=== PATIENT | male | born 1955 | race Caucasian/White ===

== ENCOUNTER 2018-06-30 07:48 | Day surgery (SDC) | payer BC, OTHER ==
[~2018-06-30 07:48] MED LIST: ALPRAZolam 0.25 MG TAB PO PRN; ALPRAZolam 0.5 MG TAB PO PRN; ASPIRIN 325 MG TAB PO STA; ATORVASTATIN 80 MG TAB PO STA; NITROGLYCERIN SL TABS 0.4 MG TAB SUBLINGUAL PRN; SODIUM CHLORIDE 0.9% 1,000 ML in EMPTY BAG 1 BAG IV ONE
[2018-06-30] MEDS ORDERED: fentaNYL (PF) 50 MCG/ML 2 ML AMP IVP ONE (09:24)
[2018-06-30] MEDS ORDERED: MIDAZOLAM 2 MG/2 ML VIAL IVP ONE (09:24)
[2018-06-30] MEDS ORDERED: LIDOCAINE 1% INJ 10MG/ML (20 ML MDV) SQ ONE ×2 (09:26→10:15)
[2018-06-30] MEDS ORDERED: VERAPAMIL SYRINGE (5 MG/10 ML) INTRAARTER ONE (09:30)
[2018-06-30] MEDS ORDERED: BIVALIRUDIN BOLUS 250 MG/50 ML IV ONE (10:05)
[2018-06-30] MEDS ORDERED: BIVALIRUDIN 250 MG in SODIUM CHLORIDE 0.9% 37 ML IV ONE (10:06)
--- NOTE | 2018-06-30 10:08 | P.CARDCATH ---
Date of Procedure: 06/30/18 Preoperative Diagnosis: Chest pain and a positive stress test. Known ischemic heart disease Postoperative Diagnosis: Total occlusion of the distal RCA with moderate to severe disease in the mid RCA, significant lesion involving the circumflex and mild disease involving the LAD Procedure(s) Performed: Left heart catheterization without left ventriculography Description of Procedure: HISTORY: This is a 61-year-old gentleman with history of ischemic heart disease with a previous stent placement of the proximal RCA and also circumflex. Patient was recently seen after gap of 2years with exertional chest pain and left arm pain. A stress test showed reversible ischemia in the inferoapical segment. Patient is advised to have a cardiac catheterization for definitive diagnosis. CONSENT:I have discussed the risks, benefits and alternative therapies for the above-mentioned procedure and for both sedation/analgesia as well as necessary blood product administration, if indicated, as they pertain to this patient. The patient has indicated understanding and acceptance of the risks and procedures discussed. PROCEDURE: Patient was brought to the lab in a fasting state. Patient was given some IV sedation. The right wrist is infiltrated with lidocaine and right radial artery was entered using Seldinger technique. A 6-Icelandic catheter was left in place and selective coronary arteriography was performed. Left heart c ath was performed but left ventriculography was not performed. Patient was found to have significant disease in the circumflex and total occlusion of the RCA with mild to moderate disease in the LAD. Patient went on to have stent placement of the circumflex followed by possible stenting of the RCA by Dr. Kirk Conscious Sedation: Versed 1mg Fentanyl 50 g Duration 21minutes HEMODYNAMICS: The aortic pressure is 103/60. Left ventricular end-diastolic pressure was about 12. There was no gradient across the aortic valve SELECTIVE CORONARY ARTERIOGRAPHY: LEFT MAIN: Normal length and patent THE LEFT ANTERIOR DESCENDING CORONARY ARTERY:. The left anterior descending coronary artery is a fairly caliber vessel giving rise to good-sized diagonal branch. The LAD has about 40% lesion in the midportion of the diagonal branch. The small diagonal branch also has a diffuse disease. THE LEFT CIRCUMFLEX AND IS CORONARY ARTERY: This is a good caliber vessel with a patent stent in the proximal portion. There is about 70-80% stenosis of the of the circumflex in the midportion beyond the stented area. THE RIGHT CORONARY ARTERY: This is a moderate caliber vessel with a stent in the proximal and midportion. There is about 70% stenosis of the mid RCA followed by total occlusion distally. The distal RCA seen by collateral flow from the left system LEFT VENTRICULOGRAPHY: Not performed FINAL IMPRESSION:. Diffuse coronary artery disease though the total occlusion of the distal RCA with about 70% stenosis in the midportion. There is about 70- 80% stenosis of mid circumflex. The stents in the proximal RCA and circumflex are open. The LAD has about 30-40% lesion in the midportion PLAN: Stent placement of the circumflex followed by possible stenting of the RCA PROGNOSIS: Guarded
[2018-06-30] MEDS ORDERED: CLOPIDOGREL 75 MG TAB PO ONE (10:16)
[2018-06-30] MEDS ORDERED: NITROGLYCERIN 1000MCG/10ML SYRINGE INTRACORON ONE (10:20)
[2018-06-30] MEDS ORDERED: IOPAMIDOL-370 150ML BTL INJ ONE (10:28)
[2018-06-30] MEDS ORDERED: IOPAMIDOL-370 100ML BTL INJ ONE (10:46)
[2018-06-30] MEDS ORDERED: RX INFO: IV CONTRAST WAS GIVEN 1 EACH MISC MISCELLANE PRN (10:58)
[2018-06-30] MEDS ORDERED: NITROGLYCERIN SL TABS 0.4 MG TAB SUBLINGUAL PRN (10:58)
[2018-06-30] MEDS ORDERED: ZOLPIDEM 5 MG TAB PO PRN (10:58)
[2018-06-30] MEDS ORDERED: MAG HYDROX/AL HYDROX/SIMETH 30 ML CUP PO PRN (10:58)
[2018-06-30] MEDS ORDERED: ATROPINE SULFATE 0.1 MG/ML 10ML SYRINGE IV PRN (10:58)
[2018-06-30] MEDS ORDERED: SODIUM CHLORIDE 0.9% 1,000 ML IV SCH (11:00)
[2018-06-30 11:45] LABS: Glucose,Whole Blood 101 mg/dL (75-99)
--- NOTE | 2018-06-30 12:09 | PTCA ---
PERCUTANEOUSTRANS CORORONARY ANGIOGRAPHY DATE OF SERVICE: June 30, 2018 PERFORMING PHYSICIAN: Karl Mullins MD, technical research scientist. PROCEDURE PERFORMED: 1. Successful stenting of the mid left circumflex using 3.0 x 23 mm Xience drug- eluting stent with an excellent angiographic result and reduction of stenosis from 80% to 0%. 2. Attempted balloon angioplasty of the right coronary artery. INDICATION: This is a 62-year-old gentleman who sees Dr. Mac in the office as an outpatient with known history of coronary artery disease and prior stenting of the proximal left circumflex was experiencing chest discomfort and underwent heart catheterization by Dr. Mac when he was found to have severe disease involving the mid left circumflex distal to the previous stent as well as chronic total occlusion of the RCA. APPROACH: 1. Right radial artery. 2. Right common femoral artery. COMPLICATION: None. LEVEL OF SEDATION: Moderate with sedation length of 47 minutes. PROCEDURE DESCRIPTION: Please refer to the diagnostic heart catheterization that was performed by Dr. Mac. I attempted engaging the left main from the right radial approach using JL3.5 guide, but I was unable. Then I had to access the right common femoral artery and place a 6- Hebrew sheath in the right common femoral artery. Anticoagulation was initiated using Angiomax. Subsequently, I did engage the left main using JL3.5 Guide. A run-through wire was used to wire the left circumflex coronary artery. After that, I did direct stenting of the lesion using 3.0 x 23 mm Xience drug-eluting stent where the stent was positioned under fluoroscopy guidance and deployed under 12 atmospheres for 20 seconds. The following angiogram showed good angiographic results. After that, I did engage the right using JR4 guide. I advanced a whisper wire all the way to distal RCA bifurcation, but I was unable to connect with the PDA, PLV branches because I think I was in some . I decided to stop at that point. POSTPROCEDURE MANAGEMENT: 1. Dual antiplatelet therapy. 2. Risk factors modifications. 3. Followup with the patient. MMODL / IJN: [id number] /
[2018-06-30] MEDS ORDERED: HYDROmorphone 0.5 MG/0.5 ML SYRINGE IVP PRN (12:17)
[2018-06-30 14:11] VITALS: BMI 29.9
[2018-06-30] MEDS: PREGABALIN 100 MG CAP PO SCH ×2 (15:57→21:34)
[2018-06-30] MEDS: MECLIZINE 25 MG TAB PO SCH ×2 (15:57→21:33)
[2018-06-30 16:55] LABS: Glucose,Whole Blood 120 mg/dL (75-99)
[2018-06-30] MEDS ORDERED: INSULIN DETEMIR (LEVEMIR) 100 UNIT/ML SYR SQ SCH (21:00)
[2018-06-30 21:21] LABS: Glucose,Whole Blood 150 mg/dL (75-99)
[2018-06-30] MEDS: METOPROLOL TARTRATE 25 MG TAB PO SCH (21:34)
[2018-07-01 06:27] LABS: Glucose,Whole Blood 90 mg/dL (75-99)
[2018-07-01 06:40] LABS: Basophils % (A) 1 %; Eosinophils # (A) 0.2 k/uL (0-0.7); Eosinophils % (A) 3 %; HGB 13.2 gm/dL (13.0-17.5); Lymphocytes # (A) 1.2 k/uL (1.0-4.8); Lymphocytes % (A) 21 %; MCH 31.5 pg (25.0-35.0); MCHC 33.7 g/dL (31.0-37.0); MCV 93.5 fL (80.0-100.0); Mean Platelet Volume 9.6; Monocytes # (A) 0.3 k/uL (0-1.0); Monocytes % (A) 6 %; Neutrophils # (A) 3.6 k/uL (1.3-7.7); Neutrophils % (A) 66 %; Platelet Count 104 k/uL (150-450); RBC 4.17 m/uL (4.30-5.90); RDW 13.2 % (11.5-15.5); WBC 5.4 k/uL (3.8-10.6)
[2018-07-01 07:02] LABS: Anion Gap 7 mmol/L; Blood Urea Nitrogen 26 mg/dL (9-20); Calcium 9.2 mg/dL (8.4-10.2); Carbon Dioxide 27 mmol/L (22-30); Chloride 107 mmol/L (98-107); Glucose 98 mg/dL (74-99); Potassium 4.5 mmol/L (3.5-5.1); Sodium 141 mmol/L (137-145)
[2018-07-01] MEDS: METOPROLOL TARTRATE 25 MG TAB PO SCH (08:40)
[2018-07-01] MEDS: MECLIZINE 25 MG TAB PO SCH (08:41)
[2018-07-01] MEDS: PREGABALIN 100 MG CAP PO SCH (08:41)
[2018-07-01] MEDS ORDERED: ASPIRIN 325 MG TAB PO SCH (09:00)
[2018-07-01] MEDS ORDERED: LISINOPRIL 2.5 MG TAB PO SCH (09:00)
[2018-07-01] MEDS ORDERED: PRASUGREL 10 MG TAB PO SCH (09:00)
[2018-07-01 12:11] LABS: Glucose,Whole Blood 108 mg/dL (75-99)
[2018-07-01 13:28] VITALS: BP 129/65; PULSE 81; RESP 16; TEMP 97.2
[2018-07-01 16:56] LABS: Hemoglobin A1C 7.7 % (4.0-6.0)
== END 2018-07-01 13:35 | disposition home or self-care (01) ==
LOC: CATHCVL 07:48 → 3SCARD 10:58 → CATHCVL 07-01 13:35
PROVIDERS: ATTEND Internal Medicine Cardiovascular Disease
DX: I25.10 Atherosclerotic heart disease of native coronary artery without angina pectoris (principal); I25.82 Chronic total occlusion of coronary artery; E11.9 Type 2 diabetes mellitus without complications; E78.2 Mixed hyperlipidemia; R94.39 Abnormal result of other cardiovascular function study; Z95.5 Presence of coronary angioplasty implant and graft; Z82.49 Family history of ischemic heart disease and other diseases of the circulatory system; Z72.0 Tobacco use; Z79.82 Long term (current) use of aspirin; Z79.4 Long term (current) use of insulin; Z79.899 Other long term (current) drug therapy
CPT/HCPCS: 93458; 80048; 84132; 85025; 83036; C9600; C1769 ×7; C1760 ×2; C1887 ×2; C1894 ×2; C1725; C1874; J2250; J2001; J3010; J0583; J1644; J1170; Q9967 ×2

== ENCOUNTER 2022-07-26 00:05 | Inpatient (IN) | payer MEDICARE ==
[2022-07-26 01:01] LABS: Albumin 4.2 g/dL (3.5-5.0); Potassium 4.7 mmol/L (3.5-5.1); Total Bilirubin 0.6 mg/dL (0.2-1.3); Total Protein 7.2 g/dL (6.3-8.2)
[2022-07-26] MEDS ORDERED: ONDANSETRON 4 MG/2 ML VIAL IVP STA (01:24)
[2022-07-26] MEDS ORDERED: ASPIRIN 81 MG PO STA (01:24)
[2022-07-26] MEDS ORDERED: HYDROmorphone 1 MG/ML 1 ML SYRINGE IVP STA ×2 (01:24→02:19)
[2022-07-26 01:25] LABS: Anisocytosis Slight; HCT 29.5 % (39.0-53.0); HGB 8.8 gm/dL (13.0-17.5); Hypochromasia Marked; MCH 22.1 pg (25.0-35.0); MCV 73.6 fL (80.0-100.0); Mean Platelet Volume 8.6; Microcytosis Moderate; Poikilocytosis Slight; WBC 3.4 k/uL (3.8-10.6)
[2022-07-26 01:58] LABS: INR 1.1 (<1.2); Partial Thromboplastin Time 22.7 sec (22.0-30.0); Prothrombin Time 11.3 sec (9.0-12.0)
[2022-07-26] MEDS ORDERED: NITROGLYCERIN OINT 1 INCH/GM PACKET TOPICAL STA (02:19)
[2022-07-26 03:02] LABS: Band Neutrophils % 2 %; Eosinophils # (M) 0.07 k/uL (0-0.7); Lymphocytes # (M) 0.37 k/uL (1.0-4.8); Monocytes # (M) 0.17 k/uL (0-1.0); Neutrophils % (M) 80 %; Nucleated Red Blood Cells 0 /100 WBC (0-0); Total Cells Counted 100
[2022-07-26 03:04] LABS: Platelet Count 80 k/uL (150-450)
[2022-07-26] MEDS ORDERED: HEPARIN SODIUM 1,000 UN/ML (10ML VL) IV ONE (03:17)
[2022-07-26] MEDS ORDERED: HEPARIN SODIUM 1,000 UN/ML (10ML VL) IV PRN ×2 (03:17→14:48)
--- NOTE | 2022-07-26 03:17 | ED ---
Chest Pain HPI - General Chief Complaint: Chest Pain Stated Complaint: Chest Pain, Difficulty Breathing Time Seen by Provider: 07/26/22 00:20 Source: patient Mode of arrival: ambulatory - History of Present Illness Initial Comments: 66-year-old male past history of coronary artery disease, diabetes, hypertension and presents emergency department reporting chest pain. States that it started 4 hours prior hospital arrival. Located over the left chest wall without radiation. Does admit to some numbness and tingling in his bilateral upper extremities. He took 2 nitro at home without any improvement in his symptoms. He was seen in the emergency department for same complaints one month ago where a stent was placed. He then had a follow-up visit on June 27 for chest pain. Heart cath was performed at that time. Patient had 60% LAD lesion and he had no intervention. He denies ripping or tearing sensation to his back. Has been taking all of his medications as directed but unaware of what medications he takes. He denies fevers chills or cough. No shortness of breath. Admits nausea with 2 episodes of vomiting. No other alleviating, precipitating or modifying factors - Related Data Home Medications Medication Instructions Recorded Confirmed Pregabalin [Lyrica] 200 mg PO TID 09/14/14 07/26/22 Insulin Degludec [Tresiba 40 units SQ DAILY 06/16/22 07/26/22 Flextouch U-100 Pen] Previous Rx's Medication Instructions Recorded Nitroglycerin Sl Tabs [Nitrostat] 0.4 mg SUBLINGUAL Q5M PRN #50 tab 06/18/22 Ascorbic Acid [Vitamin C] 500 mg PO DAILY #30 tab 08/04/22 Aspirin 81 mg PO DAILY tab 08/04/22 Atorvastatin [Lipitor] 80 mg PO HS #90 tab 08/04/22 Cyanocobalamin [Vitamin B-12 1,000 mcg IM DAILY #30 each 08/04/22 Injection] Ferrous Sulfate [Iron (65 MG 325 mg PO W/LUNCH #30 tab 08/04/22 Elemental)] Furosemide [Lasix] 40 mg PO DAILY #30 tab 08/04/22 Isosorbide Mononitrate ER [Imdur] 30 mg PO DAILY #30 tab 08/04/22 LORazepam [Ativan] 0.5 mg PO BID PRN #60 tab 08/04/22 Metoprolol Tartrate [Lopressor] 25 mg PO BID #60 tab 08/04/22 QUEtiapine [SEROquel] 25 mg PO HS PRN #30 tab 08/04/22 Spironolactone [Aldactone] 25 mg PO DAILY #30 tab 08/04/22 fluPHENAZine [Prolixin] 2.5 mg PO Q8HR PRN #90 tab 08/04/22 Allergies Allergy/AdvReac Type Severity Reaction Status Date / Time No Known Allergies Allergy Verified 07/26/22 11:34 Review of Systems ROS Statement: Those systems with pertinent positive or pertinent negative responses have been documented in the HPI. ROS Other: All systems not noted in ROS Statement are negative. EKG Findings - EKG Comments: EKG Findings:: EKG at 12:17 AM demonstrates sinus rhythm with a rate of 124. IL interval 145. QRS 108. QTC of 333. Diffuse ST depression in 2, aVF, V3 through V6. ST segment elevation in lead aVR. Repeat EKG done at 1:30 AM demonstrates junctional tachycardia with a rate of 123. IL interval 135. QRS 110. QTC is 336. There is diffuse ST elevation in aVR. Reciprocal depressions 2, aVF, V3 through V6. Past Medical History Past Medical History: Coronary Artery Disease (CAD), Chest Pain / Angina, Diabetes Mellitus, Hyperlipidemia, Hypertension Additional Past Medical History / Comment(s): IDDM type II, L knee pain due to tendon problem, bilateral foot pain. History of Any Multi-Drug Resistant Organisms: None Reported Additional Past Surgical History / Comment(s): 02/11/16 cath with stent to cx. Other surgical hx: 09/14/14 HEART CATH with stent to RCA (TRIPLE VESSEL DISEASE FOUND). Past Anesthesia/Blood Transfusion Reactions: No Reported Reaction Additional Past Anesthesia/Blood Transfusion Reaction / Comment(s): NO PAST SURGURIES Date of Last Stent Placement:: 2015 Past Psychological History: No Psychological Hx Reported Past Alcohol Use History: None Reported Past Drug Use History: None Reported - Past Family History Brother(s) Additional Family Medical History / Comment(s): Pt had one brother who had a CVA at the age of 68yrs and another brother who had a IL at the age of 61yrs. Father History Unknown: Yes Mother History Unknown: Yes General Exam General appearance: alert, in distress, other (diaphoretic) Head exam: Present: atraumatic, normocephalic, normal inspection Eye exam: Present: normal appearance, PERRL, EOMI. Absent: scleral icterus, conjunctival injection, periorbital swelling ENT exam: Present: normal exam, mucous membranes moist Neck exam: Present: normal inspection. Absent: tenderness, meningismus, lymphadenopathy Respiratory exam: Present: normal lung sounds bilaterally. Absent: respiratory distress, wheezes, rales, rhonchi, stridor Cardiovascular Exam: Present: normal rhythm, tachycardia, normal heart sounds. Absent: systolic murmur, diastolic murmur, rubs, gallop, clicks GI/Abdominal exam: Present: soft, normal bowel sounds. Absent: distended, tenderness, guarding, rebound, rigid Extremities exam: Present: normal inspection, full ROM, normal capillary refill. Absent: tenderness, pedal edema, joint swelling, calf tenderness Back exam: Present: normal inspection Neurological exam: Present: alert, oriented X3, CN II-XII intact Psychiatric exam: Present: normal affect, normal mood Skin exam: Present: warm, intact, normal color, diaphoretic. Absent: rash Course Vital Signs 07/26/22 07/26/22 07/26/22 00:07 01:00 02:00 Temperature 98.3 F Pulse Rate 121 H 118 H 117 H Respiratory 24 20 24 Rate Blood Pressure 148/74 126/81 100/87 O2 Sat by Pulse 98 97 Oximetry 07/26/22 07/26/22 07/26/22 03:00 04:00 05:00 Temperature Pulse Rate 105 H 93 90 Respiratory 20 20 22 Rate Blood Pressure 117/85 110/76 104/71 O2 Sat by Pulse 97 98 100 Oximetry 07/26/22 07/26/22 07/26/22 06:22 07:16 11:00 Temperature Pulse Rate 89 100 80 Respiratory 20 20 20 Rate Blood Pressure 103/68 102/67 105/78 O2 Sat by Pulse 98 99 100 Oximetry 07/26/22 11:30 Temperature Pulse Rate 80 Respiratory 19 Rate Blood Pressure 114/78 O2 Sat by Pulse 100 Oximetry - Reevaluation(s) Reevaluation #1: Spoke with Dr. Barakat - recommends Nitro for spasm 07/26/22 02:20 Chest Pain MDM - MDM Was pt. sent in by a medical professional or institution (Dr., PA, DOPE POURER, urgent care, hospital, or detention...) When possible be specific @ -No Did you speak to anyone other than the patient for history (EMS, parent, family, police, friend...)? What history was obtained from this source @ - Did you review nursing and triage notes (agree or disagree)? Why? @ -I reviewed and agree with nursing and triage notes Were old charts reviewed (outside hosp., previous admission, EMS record, old EKG, old radiological studies, urgent care reports/EKG's, detention records)? Report findings @ -old charts were reviewed - specifically cardiology consultation and recent cath Differential Diagnosis (chest pain, altered mental status, abdominal pain women, abdominal pain men, vaginal bleeding, weakness, fever, dyspnea, syncope, headache, dizziness, GI bleed, back pain, seizure, CVA, palpatations, mental health, musculoskeletal)? @ -STEMI, NSTEMI, ACS, coronary vasospasm, dissection EKG interpreted by me (3pts min.). @ -As above X-rays interpreted by me (1pt min.). @ -yes CT interpreted by me (1pt min.). @ -None done U/S interpreted by me (1pt. min.). @ -None done What testing was considered but not performed or refused? (CT, X-rays, U/S, labs)? Why? @ -None What meds were considered but not given or refused? Why? @ -None Did you discuss the management of the patient with other professionals (professionals i.e. CATHRYN Tan, DOPE POURER, lab, RT, psych nurse, psychosocial rehabilitation counselor, rn testing, teacher, radio officer, shelter case manager)? Give summary @ -Dr. Barakat Was smoking cessation discussed for >3mins.? @ -No Was critical care preformed (if so, how long)? @ -yes, 35 minutes for heparin gtt Were there social determinants of health that impacted care today? How? (Homelessness, low income, unemployed, alcoholism, drug addiction, transportation, low edu. Level, literacy, decrease access to med. care, [place] [facility], rehab)? @ -No Was there de-escalation of care discussed even if they declined (Discuss DNR or withdrawal of care, Hospice)? DNR status @ -No What co-morbidities impacted this encounter? (DM, HTN, Smoking, COPD, CAD, Cancer, CVA, ARF, Chemo, Hep., AIDS, mental health diagnosis, sleep apnea, morbid obesity)? @ -CAD Was patient admitted / discharged? Hospital course, mention meds given and route, prescriptions, significant lab abnormalities, going to OR and other pertinent info. @ -Upon arrival patient was placed into room 2. Thorough history and physical exam was performed. 12-lead EKG was obtained which demonstrates significant ST depression with ST elevation in aVR. Pt given 1 mg of Dilaudid and a full dose aspirin. Laboratory studies were conducted and reviewed. Troponin is 0.066. This is down from patient's previous value 0.4. Chest x-ray demonstrates small bilateral pleural effusions. I did call and speak to Dr. Cintron in regards to the diffusely ischemic EKG. Recommended Nitropaste. Patient is heparinized. He reports marked improvement in his pain is currently awaiting a bed on the floor. Spoke with Magy from [facility] who agreed to admit the patient. Undiagnosed new problem with uncertain prognosis? @ -yes Drug Therapy requiring intensive monitoring for toxicity (Heparin, Nitro, Insulin, Cardizem)? @ -yes, heparin Were any procedures done? @ -No Diagnosis/symptom? @ -acute chest pain, nstemi Acute, or Chronic, or Acute on Chronic? @ -acute Uncomplicated (without systemic symptoms) or Complicated (systemic symptoms)? @ -complicated Side effects of treatment? @ -bleeding Exacerbation, Progression, or Severe Exacerbation? @ -No Poses a threat to life or bodily function? How? (Chest pain, USA, IL, pneumonia, PE, COPD, DKA, ARF, appy, cholecystitis, CVA, Diverticulitis, Homicidal, Suicidal, threat to staff... and all critical care pts) @ -yes Disposition Clinical Impression: NSTEMI (non-ST elevated myocardial infarction), Chest pain Disposition: ADMITTED IP TO THIS [facility] Condition: Serious Is patient prescribed a controlled substance at d/c from ED?: No Time of Disposition: : Decision to Admit Reason: Admit from EC Decision Date: 07/26/22 Decision Time: 03:23
[2022-07-26] MEDS ORDERED: NALOXONE 0.4 MG/ML 1 ML VIAL IV PRN (03:23)
[2022-07-26] MEDS ORDERED: HYDROmorphone 1 MG/ML 1 ML SYRINGE IVP PRN (03:23)
[2022-07-26] MEDS ORDERED: ONDANSETRON 4 MG/2 ML VIAL IVP PRN (03:23)
--- NOTE | 2022-07-26 03:29 | XR ---
EXAM: XR Chest, 2 Views CLINICAL HISTORY: ITS.REASON XR Reason: Chest Pain TECHNIQUE: Frontal and lateral views of the chest. COMPARISON: Chest radiograph on 06/16/2022 FINDINGS: Hardware: None. Lungs/pleura: Small bilateral pleural effusions. Associated atelectasis versus pneumonia. Prominent markings may represent pulmonary vasculature congestion. Heart/mediastinum: Normal. No cardiomegaly. Soft tissues: Unremarkable. Bones: No acute fracture. Degenerative changes of the spine. Upper abdomen: Normal. IMPRESSION: 1. Small bilateral pleural effusions. Associated atelectasis versus pneumonia. 2. Prominent markings may represent pulmonary vasculature congestion.
[2022-07-26] MEDS ORDERED: HEPARIN SOD,PORK IN 0.45% NACL 25,000 UNIT in 0.45% NACL 1 250ML.BAG IV SCH ×2 (03:30→15:00)
--- NOTE | 2022-07-26 08:13 | P.HPIM ---
History of Present Illness This is a pleasant 66 years old male with past medical history of hypertension, diabetes mellitus, hyperlipidemia, coronary artery disease status post stent to the left circumflex and RCA with history of triple-vessel coronary artery disease Patient presents because of chest pain started about 1.5-2 hours prior to coming to the emergency room. Patient states that it has been similar to the chest pain he had it about 3 weeks ago when he had the stent placed in this facility. He had another episode of chest pain 1 week after that and this is a third episode. Patient states that his chest pain did not resolve with 2 pills of nitro, he reported last 10/10 in severity but now is down with pain medication and to 2/10 which is mild. It is in the middle of his chest nonradiating feels like squeezing associated with some sore throat but no dyspnea and no coughing. Both his arms were normal yesterday, more on the left side which is resolved now. He denies any other change in his urine or bowel habits. No headache dizziness or weakness or numbness. He has chronic numbness in his feet related to his diabetic neuropathy He denies smoking alcohol or illicit drugs. Patient is with no exertional chest pain or dyspnea. His boiler coverer helper is Dr. Ramirez. Vitals stable. Labs showing mild pancytopenia with WBC 3.4, hemoglobin 8.8 and they cleared count 80, slightly worse than before Creatinine elevated at 1.3, which is about baseline Glucose elevated 199 ProBNP is elevated at 3090 Troponin elevated at 0.066. Liver enzymes. Elevated. Chest x-ray: Small bilateral pleural effusions. Associated atelectasis versus pneumonia. Prominent [place] medical present pulmonary vascular congestion Review of Systems Review of systems CONSTITUTIONAL: No fever, no malaise, no fatigue. HEENT: No recent visual problems or hearing problems. Denied any sore throat. CARDIOVASCULAR: No orthopnea, PND, no palpitations, no syncope. PULMONARY: No shortness of breath, no cough, no hemoptysis. GASTROINTESTINAL: No diarrhea, no nausea, no vomiting, no abdominal pain. Normoactive bowel sounds. NEUROLOGICAL: No headaches, no weakness, no numbness. HEMATOLOGICAL: Denies any bleeding or petechiae. GENITOURINARY: Denies any burning micturition, frequency, or urgency. MUSCULOSKELETAL/RHEUMATOLOGICAL: Denies any joint pain, swelling, or any muscle pain. ENDOCRINE: Denies any polyuria or polydipsia. Past Medical History Past Medical History: Coronary Artery Disease (CAD), Chest Pain / Angina, Diabetes Mellitus, Hyperlipidemia, Hypertension Additional Past Medical History / Comment(s): IDDM type II, L knee pain due to tendon problem, bilateral foot pain. History of Any Multi-Drug Resistant Organisms: None Reported Additional Past Surgical History / Comment(s): 02/11/16 cath with stent to cx. Other surgical hx: 09/14/14 HEART CATH with stent to RCA (TRIPLE VESSEL DISEASE FOUND). Past Anesthesia/Blood Transfusion Reactions: No Reported Reaction Additional Past Anesthesia/Blood Transfusion Reaction / Comment(s): NO PAST SURGURIES Date of Last Stent Placement:: 2015 Past Psychological History: No Psychological Hx Reported Past Alcohol Use History: None Reported Past Drug Use History: None Reported - Past Family History Brother(s) Additional Family Medical History / Comment(s): Pt had one brother who had a CVA at the age of 68yrs and another brother who had a AL at the age of 61yrs. Father History Unknown: Yes Mother History Unknown: Yes Medications and Allergies Home Medications Medication Instructions Recorded Confirmed Type Pregabalin [Lyrica] 200 mg PO TID 09/14/14 06/27/22 History Aspirin 325 mg PO DAILY tab 09/15/14 06/27/22 Rx Prasugrel [Effient] 10 mg PO DAILY #30 tab 09/15/14 06/27/22 Rx lisinopriL [Zestril] 2.5 mg PO DAILY #30 tab 09/15/14 06/27/22 Rx Metoprolol Tartrate 12.5 mg PO BID 06/28/18 06/27/22 History Insulin Degludec [Tresiba 40 units SQ DAILY 06/16/22 06/27/22 History Flextouch U-100 Pen] Atorvastatin [Lipitor] 80 mg PO HS #90 tab 06/18/22 06/27/22 Rx Nitroglycerin Sl Tabs [Nitrostat] 0.4 mg SUBLINGUAL Q5M PRN #50 tab 06/18/22 06/27/22 Rx Allergies Allergy/AdvReac Type Severity Reaction Status Date / Time No Known Allergies Allergy Verified 07/26/22 00:12 Physical Exam Vitals: Vital Signs Temp Pulse Resp BP Pulse Ox 04/02/23 06:22 89 20 103/68 98 07/26/22 05:00 90 22 104/71 100 07/26/22 04:00 93 20 110/76 98 07/26/22 03:00 105 H 20 117/85 97 07/26/22 02:00 117 H 24 100/87 97 07/26/22 01:00 118 H 20 126/81 07/26/22 00:07 98.3 F 121 H 24 148/74 98 Intake and Output 07/25/22 07/25/22 07/26/22 14:59 22:59 06:59 Other: Weight 72.575 kg GENERAL: The patient is alert and oriented x3, not in any acute distress. Well developed, well nourished. HEENT: Pupils are round and equally reacting to light. EOMI. No scleral icterus. No conjunctival pallor. Normocephalic, atraumatic. No pharyngeal erythema. No thyromegaly. CARDIOVASCULAR: S1 and S2 present. No murmurs, rubs, or gallops. PULMONARY: Chest is clear to auscultation, no wheezing or crackles. ABDOMEN: Soft, nontender, nondistended, normoactive bowel sounds. No palpable organomegaly. MUSCULOSKELETAL: No joint swelling or deformity. EXTREMITIES: No cyanosis, clubbing, or pedal edema. NEUROLOGICAL: Gross neurological examination did not reveal any focal deficits. SKIN: No rashes. no petechiae. Results CBC & Chem 7: 07/26/22 00:28 07/26/22 00:28 Labs: Abnormal Lab Results - Last 24 Hours (Table) 07/26/22 07/26/22 07/26/22 Range/Units 00:28 00:28 00:28 WBC 3.4 L (3.8-10.6) k/uL RBC 4.00 L (4.30-5.90) m/uL Hgb 8.8 L (13.0-17.5) gm/dL Hct 29.5 L (39.0-53.0) % MCV 73.6 L (80.0-100.0) fL MCH 22.1 L (25.0-35.0) pg MCHC 30.0 L (31.0-37.0) g/dL RDW 18.0 H (11.5-15.5) % Plt Count 80 L (150-450) k/uL Lymphocytes # (Manual) 0.37 L (1.0-4.8) k/uL BUN 24 H (9-20) mg/dL Creatinine 1.31 H (0.66-1.25) mg/dL Glucose 199 H (74-99) mg/dL Troponin I 0.066 H* (0.000-0.034) ng/mL Assessment and Plan Assessment: Chest pain, rule out cardiac causes Acute kidney injury Chronic pancytopenia with slight worsening Hypertension Diabetes mellitus Hyperlipidemia History of coronary artery disease status post triple vessel coronary disease. Plan: Continuous serial troponin Continue with aspirin Continue with heparin drip Start metoprolol 12.5 mg Patient on Effient, resume per cardiology (informed nurse to contact cardiology team) Cardiology consult Check hemoglobin A1c Check bladder scan We recommend close monitoring for her CBC, if further worsening and her pancytopenia then we recommend hematology consult If no improvement in creatinine we recommend nephrology consult Labs and medication were reviewed.. Continue same treatment. Continue with symptomatic treatment. Resume home medication. Monitor labs and vitals. DVT and GI prophylaxis. Further recommendations as per clinical course of the patient DVT prophylaxis: heparin, hold for platelet count less than 50,000 GI Prophylaxis: Pepcid PT/OT: Pending Prognosis is guarded
[2022-07-26] MEDS ORDERED: METOPROLOL TARTRATE 12.5 MG TAB PO STA (08:49)
[2022-07-26] MEDS ORDERED: METOPROLOL TARTRATE 12.5 MG TAB PO SCH (09:00)
[2022-07-26] MEDS ORDERED: PRASUGREL 10 MG TAB PO SCH (09:00)
[2022-07-26] MEDS: ASPIRIN 81 MG PO SCH (09:46)
[2022-07-26] MEDS: METOPROLOL TARTRATE 25 MG TAB PO SCH ×2 (09:46→20:54)
[2022-07-26] MEDS: EZETIMIBE 10 MG TAB PO SCH (09:47)
[2022-07-26] MEDS: FAMOTIDINE 20 MG/2 ML VIAL IV SCH (09:47)
[2022-07-26] MEDS ORDERED: NITROGLYCERIN-D5W PMX 50 MG in DEXTROSE/WATER 1 250ML.BAG IV SCH (11:00)
[2022-07-26] MEDS ORDERED: fentaNYL (PF) 50 MCG/ML 2 ML AMP ONE (11:58)
--- NOTE | 2022-07-26 12:04 | P.CRDCN ---
History of Present Illness Consult date: 07/26/22 History of present illness: HISTORY OF PRESENT ILLNESS: This is a 66-year-old male patient of Dr. Sindi Montes De Oca with a past medical history significant for coronary artery disease with previous stenting, hypertension, hyperlipidemia, and former nicotine dependence. Patient has had several hospitalizations regarding coronary artery disease with cardiac catheterizations as noted below. Patient states that last evening he developed chest pain that was really bad while he was just walking in his house. He also complains of numbness in the bilateral arms and pain in the left arm. He states he had some lightheadedness and dizziness, difficulty breathing. Patient also states he had dark urine. He states the pain is exactly like he had previous to recent stenting. He states he took 2 nitroglycerin with no improvement. He also complains of his abdomen being hard and hurts on the side. His last bowel movement was yesterday and he does state he sometimes has blood in the stool sometimes quite a bit. He is noted to have a low hemoglobin since May of this year and he states he has not had this worked up. Patient pain when he presented was 17/02 and now states it's -06/05 * EKG reveals sinus mechanism with ST depression * Chest xray small bilateral pleural effusions. Associated atelectasis versus pneumonia. Prominent markings may represent pulmonary vascular congestion * Laboratory data: WBC 3.4, hemoglobin 8.8, platelet count 80. Initial BUN and creatinine 28 and 0.95 now at 24 and 1.31. Troponin 0.066, 6.390, 11.6 * Current home cardiac medications include aspirin 325 mg daily, atorvastatin 80 mg at bedtime, lisinopril 2.5 mg daily, metoprolol tartrate 12.5 mg twice daily, Nitrostat as needed, Effient 10 mg daily. * Cardiac catheterization history: June 2018 revealing diffuse coronary artery disease through the total occlusion of the distal RCA with proximal 70% stenosis in the midportion. 70-80% stenosis of the mid circumflex. The stents in the proximal RCA and circumflex are open. The LAD has about a 30- 40% lesion in the midportion. The patient underwent stenting of the mid left circumflex. Attempted balloon angioplasty of the right coronary artery. * Cardiac catheterization 06/17/[address] Montes De Oca revealed severe disease involving the proximal LAD, patient underwent successful stenting of the proximal LAD by Dr. Mullins. * Cardiac catheterization 06/27/[address] Mullins revealed patent stent in the proximal LAD. Intermediate lesion involving the very proximal LAD right after the takeoff from the left main appears to be in the range of 60%. Intermediate disease involving the first obtuse marginal branch which is a lar ge caliber vessel. Mildly elevated left-sided filling pressures. Plan was for medical management and absence of any high-grade lesions. * Echocardiogram 06/27/2022: EF 30-35% REVIEW OF SYSTEMS: At the time of my exam: CONSTITUTIONAL: Denies fever or chills. HEENT: Denies blurred vision, vision changes, or eye pain. Denies hemoptysis CARDIOVASCULAR: Reports mild chest pain. Denies orthopnea. Denies PND. Denies palpitations RESPIRATORY: Denies shortness of breath. GASTROINTESTINAL: Denies abdominal pain. Denies nausea or vomiting. HEMATOLOGIC: Denies bleeding disorders. GENITOURINARY: Denies any blood in urine. SKIN: Denies pruitis. Denies rash. PHYSICAL EXAM: VITAL SIGNS: Reviewed. GENERAL: Well-developed in no acute distress. HEENT: Head is normocephalic. Pupils are equal, round. Sclerae anicteric. Mucous membranes of the mouth are moist. Neck supple. No JVD or thyromegaly LUNGS: Respirations even and unlabored. Lungs essentially clear to auscultation bilaterally. HEART: Regular rate and rhythm. S1 and S2 heard. ABDOMEN: Soft. Nondistended. Nontender. EXTREMITIES: Normal range of motion. No clubbing or cyanosis. Peripheral pulses intact. No lower extremity edema NEUROLOGIC: Awake and alert. Oriented x 3. ASSESSMENT: Non-STEMI Coronary artery disease with previous stenting to the proximal RCA and circumflex Known chronic total occlusion of the distal RCA Hypertension Hyperlipidemia Anemia Pancytopenia Acute kidney injury Former nicotine dependence PLAN: Patient is on heparin drip which will be continued Resume patient's home medications and increase Lopressor 25 mg twice daily Patient scheduled for cardiac catheterization today Obtain limited 2-D echo to assess cardiac structure and function Further recommendations pending patient course Nurse practitioner note has been reviewed by physician. Signing provider agrees with the documented findings, assessment, and plan of care. Past Medical History Past Medical History: Coronary Artery Disease (CAD), Chest Pain / Angina, Diabetes Mellitus, Hyperlipidemia, Hypertension Additional Past Medical History / Comment(s): IDDM type II, L knee pain due to tendon problem, bilateral foot pain. History of Any Multi-Drug Resistant Organisms: None Reported Additional Past Surgical History / Comment(s): 02/11/16 cath with stent to cx. Other surgical hx: 09/14/14 HEART CATH with stent to RCA (TRIPLE VESSEL DISEASE FOUND). Past Anesthesia/Blood Transfusion Reactions: No Reported Reaction Additional Past Anesthesia/Blood Transfusion Reaction / Comment(s): NO PAST SURGURIES Date of Last Stent Placement:: 2015 Past Psychological History: No Psychological Hx Reported Past Alcohol Use History: None Reported Past Drug Use History: None Reported - Past Family History Brother(s) Additional Family Medical History / Comment(s): Pt had one brother who had a CVA at the age of 68yrs and another brother who had a MD at the age of 61yrs. Father History Unknown: Yes Mother History Unknown: Yes Medications and Allergies Home Medications Medication Instructions Recorded Confirmed Type Pregabalin [Lyrica] 200 mg PO TID 09/14/14 07/26/22 History Aspirin 325 mg PO DAILY tab 09/15/14 07/26/22 Rx Prasugrel [Effient] 10 mg PO DAILY #30 tab 09/15/14 07/26/22 Rx lisinopriL [Zestril] 2.5 mg PO DAILY #30 tab 09/15/14 07/26/22 Rx Metoprolol Tartrate 12.5 mg PO BID 06/28/18 07/26/22 History Insulin Degludec [Tresiba 40 units SQ DAILY 06/16/22 07/26/22 History Flextouch U-100 Pen] Atorvastatin [Lipitor] 80 mg PO HS #90 tab 06/18/22 07/26/22 Rx Nitroglycerin Sl Tabs [Nitrostat] 0.4 mg SUBLINGUAL Q5M PRN #50 tab 06/18/22 07/26/22 Rx Allergies Allergy/AdvReac Type Severity Reaction Status Date / Time No Known Allergies Allergy Verified 07/26/22 11:34 Physical Exam Vitals: Vital Signs Temp Pulse Resp BP Pulse Ox 07/26/22 07:16 100 20 102/67 99 07/26/22 06:22 89 20 103/68 98 07/26/22 05:00 90 22 104/71 100 04/02/23 04:00 93 20 110/76 98 07/26/22 03:00 105 H 20 117/85 97 07/26/22 02:00 117 H 24 100/87 97 07/26/22 01:00 118 H 20 126/81 07/26/22 00:07 98.3 F 121 H 24 148/74 98 Intake and Output 07/25/22 07/26/22 07/26/22 22:59 06:59 14:59 Other: Weight 72.575 kg Results 07/26/22 00:28 07/26/22 00:28 Cardiac Enzymes 07/26/22 07/26/22 07/26/22 Range/Units 00:28 00:28 07:39 AST 19 (17-59) U/L Troponin I 0.066 H* 6.390 H* (0.000-0.034) ng/mL Coagulation 07/26/22 Range/Units 00:28 PT 11.3 (9.0-12.0) sec APTT 22.7 (22.0-30.0) sec CBC 07/26/22 Range/Units 00:28 WBC 3.4 L (3.8-10.6) k/uL RBC 4.00 L (4.30-5.90) m/uL Hgb 8.8 L (13.0-17.5) gm/dL Hct 29.5 L (39.0-53.0) % Plt Count 80 L (150-450) k/uL Comprehensive Metabolic Panel 07/26/22 Range/Units 00:28 Sodium 139 (137-145) mmol/L Potassium 4.7 (3.5-5.1) mmol/L Chloride 103 (98-107) mmol/L Carbon Dioxide 25 (22-30) mmol/L BUN 24 H (9-20) mg/dL Creatinine 1.31 H (0.66-1.25) mg/dL Glucose 199 H (74-99) mg/dL Calcium 9.0 (8.4-10.2) mg/dL AST 19 (17-59) U/L ALT 15 (4-49) U/L Alkaline Phosphatase 77 (38-126) U/L Total Protein 7.2 (6.3-8.2) g/dL Albumin 4.2 (3.5-5.0) g/dL Current Medications Generic Name Dose Route Start Last Admin Trade Name Freq PRN Reason Stop Dose Admin Aspirin 81 mg 07/26/22 09:00 Aspirin 81 Mg PO DAILY [facility] Famotidine 20 mg 07/26/22 09:00 Famotidine 20 Mg/2 Ml Vial IV DAILY [facility] Heparin Sodium (Porcine) 0 unit 07/26/22 03:17 Heparin Sodium 1,000 Un/Ml (10ml Vl) IV PER PROTOCOL PRN Low PTT Protocol Hydromorphone HCl 1 mg 07/26/22 03:23 Hydromorphone 1 Mg/Ml 1 Ml Syringe IVP Q3HR PRN Severe Pain (Scale 7 to 10) Heparin Sodium/Sodium Chloride 250 mls @ 8.709 mls/hr 07/26/22 03:30 07/26/22 03:32 25,000 unit/ Sodium Chloride IV 12 units/kg/hr .Q24H JESSY 8.709 mls/hr Administration Protocol 12 UNITS/KG/HR Metoprolol Tartrate 12.5 mg 07/26/22 09:00 Metoprolol Tartrate 12.5 Mg Tab PO BID [facility] Naloxone HCl 0.2 mg 07/26/22 03:23 Naloxone 0.4 Mg/Ml 1 Ml Vial IV Q2M PRN Opioid Reversal Ondansetron HCl 4 mg 07/26/22 03:23 Ondansetron 4 Mg/2 Ml Vial IVP Q8HR PRN Nausea And Vomiting Intake and Output 07/25/22 07/26/22 07/26/22 22:59 06:59 14:59 Other: Weight 72.575 kg 07/26/22 00:28 07/26/22 00:28
[2022-07-26] MEDS ORDERED: LIDOCAINE 1% INJ 10MG/ML (20 ML MDV) ONE (12:08)
[2022-07-26] MEDS ORDERED: LIDOCAINE 1% INJ 10MG/ML (30 ML VIAL-PF) SQ ONE ×2 (12:13→12:14)
[2022-07-26] MEDS ORDERED: SODIUM CHLORIDE 0.9% 1,000 ML IV ONE (12:14)
[2022-07-26] MEDS ORDERED: fentaNYL (PF) 50 MCG/ML 2 ML AMP IV ONE (12:14)
[2022-07-26] MEDS ORDERED: IOPAMIDOL-370 125ML BTL INJ ONE (12:35)
--- NOTE | 2022-07-26 13:08 | P.CARDCATH ---
Date of Procedure: 07/26/22 Description of Procedure: Cardiac Catheterization: The patient is a 66-year-old with multiple prior PCI who presented with symptoms of chest discomfort and evidence of non-STEMI. He has a known history of diabetes, hypertension, hyperlipidemia and ischemic cardiomyopathy. He was evaluated by Dr. Barakat. Recommendations were made regarding cardiac catheterization, the risks and the complications were discussed with the patient who is in full understanding and agreement. Procedure Description: Patient was brought to laboratory apparatus glass blower in fasting semi-sedated state after receiving Fentanyl and Benadryl achieiving moderate conscious sedated state. Using Xylocaine Anesthesia and Seldinger technique, and using a micropuncture catheter a 6-Bolivian sheath was introduced in the right femoral artery . Subsequently, selective coronary angiography was performed using a 6-Bolivian 4 bend Pepe catheter. Multiple views of the coronary artery including hemiaxial views were obtained. The 6-Bolivian pigtail catheter was used to cross the aortic valve and LVEDP was calculated. Following that, catheter and sheath were removed. Hemostasis was obtained with deployment of Angio-Seal band . There was no immediate complication. Patient was returned to room in stable condition. His pain resolved at the end of the procedure Findings: Left main: This is a short sized vessel, bifurcating into LAD and left circumflex the left main has a tubular lesion of 30-40% distally LAD: This is a large size vessel, reaching to the apex giving rise to 3 diagonal branch, the takeoff of second obtuse margin branch has a 70-80% stenosis in the ostium of the LAD has a 70-80% stenosis, the stented segment in the LAD is patent Left circumflex: This is a large nondominant vessel, giving rise to a large obtuse marginal branch, the stented segment in the obtuse marginal branch is patent. The ostium of the left circumflex has a 90% stenosis RCA: This vessel is chronically occluded proximally with no antegrade flow Collaterals: there is collateral from the left groin system to work the right PDA and PLV Left Ventriculogram: Not performed Hemodynamics: There was no gradient across the aortic valve , LVEDP was 25-30 mmHg Conclusion: 1. Severe stenosis involving the ostium of the LAD and the left circumflex 2. Chronically occluded right coronary artery 3. Collaterals from the left system 4. Elevated LVEDP Recommendations: In view of the anatomy, the cardiomyopathy and a history of diabetes have recommended to proceed with evaluation for CABG. The patient did not take Effient today, he'll be started on heparin and hopefully proceed with surgery in few days. The findings and the recommendations were discussed with the patient and the family and they were in full understanding and agreement. Duration of sedation is 17 minutes.
[2022-07-26 13:18] LABS: Glucose,Whole Blood 113 mg/dL (70-110)
[2022-07-26 13:56] LABS: Anisocytosis Slight; HCT 24.8 % (39.0-53.0); HGB 7.4 gm/dL (13.0-17.5); Hypochromasia Marked; MCH 22.1 pg (25.0-35.0); MCHC 29.8 g/dL (31.0-37.0); MCV 74.2 fL (80.0-100.0); Mean Platelet Volume 14.5; Microcytosis Moderate; Poikilocytosis Slight; RBC 3.34 m/uL (4.30-5.90); RDW 18.2 % (11.5-15.5); WBC 2.9 k/uL (3.8-10.6)
[2022-07-26 13:57] LABS: Platelet Count 86 k/uL (150-450)
[2022-07-26 14:03] LABS: INR 1.2 (<1.2); Partial Thromboplastin Time 38.5 sec (22.0-30.0); Prothrombin Time 11.9 sec (9.0-12.0)
[2022-07-26 14:34] LABS: Basophils # (M) 0.06 k/uL (0-0.2); Lymphocytes # (M) 0.32 k/uL (1.0-4.8); Neutrophils # (M) 2.32 k/uL (1.3-7.7); Neutrophils % (M) 80 %; Nucleated Red Blood Cells 0 /100 WBC (0-0); Total Cells Counted 100
[2022-07-26] MEDS ORDERED: RX INFO: IV CONTRAST WAS GIVEN 1 EACH MISC MISCELLANE PRN (14:43)
[2022-07-26] MEDS ORDERED: HYDROcodone/APAP 5-325MG 1 EACH TAB PO PRN (14:50)
[2022-07-26] MEDS: NITROGLYCERIN-D5W PMX 50 MG in DEXTROSE/WATER 1 250ML.BAG IV SCH (15:07)
[2022-07-26 15:23] LABS: Albumin 3.4 g/dL (3.5-5.0); Calcium 8.3 mg/dL (8.4-10.2); Potassium 5.5 mmol/L (3.5-5.1); Total Bilirubin 0.5 mg/dL (0.2-1.3); Total Protein 6.3 g/dL (6.3-8.2)
[2022-07-26] MEDS ORDERED: DEXTROSE 50% SYRINGE 50 ML IVP PRN ×2 (16:13)
[2022-07-26 16:36] LABS: Glucose,Whole Blood 70 mg/dL (70-110)
[2022-07-26] MEDS: INSULIN ASPART (NovoLOG) 100 UNIT/ML VIAL SQ SCH ×2 (16:47→22:33)
[2022-07-26 17:19] LABS: Calcium 8.4 mg/dL (8.4-10.2); Potassium 5.3 mmol/L (3.5-5.1)
[2022-07-26] MEDS ORDERED: SODIUM ZIRCONIUM CYCLOSILICATE 10 GM PACKET PO ONE (18:12)
[2022-07-26] MEDS: LORazepam 1 MG TAB PO PRN (18:33)
[2022-07-26 20:34] LABS: Glucose,Whole Blood 100 mg/dL (70-110)
[2022-07-26] MEDS: ATORVASTATIN 80 MG TAB PO SCH (20:55)
[2022-07-26] MEDS ORDERED: INSULIN DETEMIR (LEVEMIR) 100 UNIT/ML SYR SQ SCH (21:00)
[2022-07-26 22:19] LABS: Appearance,Urine Clear (Clear); Bilirubin,Urine Negative (Negative); Blood,Urine Negative (Negative); Color,Urine Yellow; Glucose,Urine (UA) Negative (Negative); Ketones,Urine Negative (Negative); Leukocyte Esterase,Urine Negative (Negative); Mucus,Urine Rare /hpf; Nitrite,Urine Negative (Negative); PH, Urine 5.5 (5.0-8.0); Protein,Urine 1+ (Negative); RBC,Urine <1 /hpf (0-5); Specific Gravity,Urine 1.026 (1.001-1.035); WBC,Urine 1 /hpf (0-5)
[2022-07-26 23:17] LABS: Hepatitis A Antibody IgM Nonreactive (Nonreactive); Hepatitis B Core IgM Nonreactive (Nonreactive); Hepatitis B Surface Antigen Nonreactive (Nonreactive); Hepatitis C IgG Antibody Nonreactive (Nonreactive)
--- NOTE | 2022-07-27 04:03 | P.CNPUL ---
History of Present Illness Consult date: 07/27/22 Requesting physician: Eh Schuler Reason for consult: other (Surgical clearance) Chief complaint: Chest pain History of present illness: Seeing this patient in new consultation today 07/27/2022 in regard to a presurgical clearance for CABG. This is a 66-year-old white male with past medical history significant for coronary artery disease receiving multiple previous stents (including the RCA, left circumflex, LAD), ischemic cardiomyopathy, hypertension, hyperlipidemia, diabetes mellitus type 2, ex- smoker of over 40 years ago. Patient's chest pain began 4 hours prior to arrival to the emergency room. The chest pain was described as 10 out of 10 on a numerical scale, and radiating down bilateral arms. Patient also had some associated shortness of breath and lightheadedness with this chest pain. Symptoms were consistent with prior events requiring catheterization and stenting. Patient did take 2 nitroglycerin tabs without improvement in symptoms. ECG on arrival showed normal sinus mechanism with ST depression and T-wave inversion in the anterior leads. Troponins peaked at 11.6. Patient was taken to the Project Engineer which revealed multi vessel disease with severe stenosis involving the ostium of the LAD and left circumflex, a chronically occluded RCA, collaterals from the left system, and an elevated LVEDP. Patient was transferred to the intensive care unit after his procedure. Nitroglycerin is currently infusing at 10 mcg/m. Patient denies any current chest pain. Patient is currently resting comfortably in bed, on 4 L nasal cannula, in no acute distress. Plan is for possible coronary artery bypass graft revascularization. CBC on arrival showed a WBC count of 2.9, hemoglobin of 7.4, hematocrit 24.8, platelets 86,000. Patient does report some chronic blood loss in his stool that he has never had evaluated. BMP on arrival shows a sodium 138, potassium 5.3, chloride 102, serum CO2 30, BUN 33, creatinine 1.29, glucose 80. Patient does have a suicide sitter at bedside. Nurse reports that the patient had previous suicidal ideation and plan to shoot himself with a gun. Patient denies any suicidal ideation currently to me. Chest x-ray on arrival showed small bilateral pleural effusions with probable atelectasis and prominent pulmonary vascular congestion. Incentive spirometer is at bedside. Patient will have to undergo PFT for presurgical clearance. Vital signs are stable at this time. Review of Systems REVIEW OF SYSTEMS: CONSTITUTIONAL: Denies any recent significant weight loss or weight gain. EYES: Denies change in vision. EARS, NOSE, MOUTH, THROAT: Denies headaches, denies sore throat. CARDIOVASCULAR: Denies palpitations or syncopal episodes. Admits chest pain on arrival and lower extremity swelling RESPIRATORY: Denies shortness of breath, cough, congestion or hemoptysis. GASTROINTESTINAL: Denies change in appetite, abdominal pain, nausea and vomiting, or diarrhea GENITOURINARY: Denies hematuria, denies infections. MUSKULOSKELETAL: Denies pain, denies swelling. INTEGUMENTARY: Denies rash, denies eczema. NEUROLOGICAL: Denies recent memory loss, no recent seizure activity. PSYCHIATRIC: Denies anxiety, denies depression. HEMATOLOGIC/LYMPHATIC: Denies anemia, denies enlarged lymph node ROS unobtainable: due to endotracheal tube Past Medical History Past Medical History: Coronary Artery Disease (CAD), Chest Pain / Angina, Diabetes Mellitus, Hyperlipidemia, Hypertension Additional Past Medical History / Comment(s): IDDM type II, L knee pain due to tendon problem, bilateral foot pain. History of Any Multi-Drug Resistant Organisms: None Reported Past Surgical History: Heart Catheterization With Stent Additional Past Surgical History / Comment(s): 02/11/16 cath with stent to cx. Other surgical hx: 09/14/14 HEART CATH with stent to RCA (TRIPLE VESSEL DISEASE FOUND). Past Anesthesia/Blood Transfusion Reactions: No Reported Reaction Additional Past Anesthesia/Blood Transfusion Reaction / Comment(s): NO PAST SURGURIES Date of Last Stent Placement:: 2015 Past Psychological History: No Psychological Hx Reported Past Alcohol Use History: None Reported Past Drug Use History: None Reported - Past Family History Brother(s) Additional Family Medical History / Comment(s): Pt had one brother who had a CVA at the age of 68yrs and another brother who had a CT at the age of 61yrs. Father History Unknown: Yes Mother History Unknown: Yes Medications and Allergies Home Medications Medication Instructions Recorded Confirmed Type Pregabalin [Lyrica] 200 mg PO TID 09/14/14 07/26/22 History Aspirin 325 mg PO DAILY tab 09/15/14 07/26/22 Rx Prasugrel [Effient] 10 mg PO DAILY #30 tab 09/15/14 07/26/22 Rx lisinopriL [Zestril] 2.5 mg PO DAILY #30 tab 09/15/14 07/26/22 Rx Metoprolol Tartrate 12.5 mg PO BID 06/28/18 07/26/22 History Insulin Degludec [Tresiba 40 units SQ DAILY 06/16/22 07/26/22 History Flextouch U-100 Pen] Atorvastatin [Lipitor] 80 mg PO HS #90 tab 06/18/22 07/26/22 Rx Nitroglycerin Sl Tabs [Nitrostat] 0.4 mg SUBLINGUAL Q5M PRN #50 tab 06/18/22 07/26/22 Rx Allergies Allergy/AdvReac Type Severity Reaction Status Date / Time No Known Allergies Allergy Verified 07/26/22 11:34 Physical Exam Vitals: Vital Signs Temp Pulse Pulse Resp BP BP Pulse Ox 07/27/22 02:00 71 9 L 89/51 07/27/22 01:00 73 24 85/60 94/59 100 07/27/22 00:09 71 16 92/63 100 07/27/22 00:00 97.7 F 68 18 98/62 100 07/26/22 23:00 70 28 H 101/61 97 07/26/22 22:00 67 26 H 86/59 99 07/26/22 21:00 80 25 H 100/67 98 07/26/22 20:00 97.7 F 90 22 140/96 100 07/26/22 19:00 86 100/61 98 07/26/22 18:00 82 101/62 99 07/26/22 17:15 90 16 116/76 98 07/26/22 17:00 87 18 98/72 99 07/26/22 16:45 96 24 107/70 97 07/26/22 16:30 89 24 90/56 98 07/26/22 16:15 80 20 96/68 98 07/26/22 16:08 24 96 07/26/22 16:00 98.7 F 85 24 97/68 96/68 96 07/26/22 15:45 81 18 107/80 97 07/26/22 15:30 86 22 101/74 93 L 07/26/22 15:15 87 17 115/76 95 07/26/22 15:00 84 87 16 115/76 115/67 95 04/02/23 14:45 84 25 H 102/73 96 07/26/22 14:30 87 89 20 102/82 102/73 95 07/26/22 14:00 85 16 109/74 94 L 07/26/22 13:45 81 16 99/71 94 L 07/26/22 13:30 80 16 97/69 93 L 07/26/22 13:15 97.8 F 93 16 105/70 93 L 07/26/22 11:30 80 19 114/78 100 07/26/22 11:00 80 20 105/78 100 07/26/22 07:16 100 20 102/67 99 07/26/22 06:22 89 20 103/68 98 07/26/22 05:00 90 22 104/71 100 07/26/22 04:00 93 20 110/76 98 Intake and Output 07/26/22 07/26/22 07/27/22 14:59 22:59 06:59 Intake Total 210 505.45 10 Output Total 0 270 0 Balance 210 235.45 10 Intake: IV 210 20 10 Invasive Line 1 10 20 10 Intake, IV Titration 5.45 Amount Nitroglycerin-D5w Pmx 50 5.45 mg In Dextrose/Water 1 250ml.bag @ 5 MCG/MIN 1.5 mls/hr IV .Q24H [facility] Rx#: [id number] Oral 480 Output: Urine 0 270 0 Other: # Voids 1 Weight 78 kg GENERAL EXAM: Alert, 66-year-old white male, comfortable in no apparent distre ss. HEAD: Normocephalic and atraumatic EYES: Normal reaction of pupils, equal size. NOSE: Clear with pink turbinates. THROAT: No erythema or exudates. NECK: No masses, no JVD. CHEST: No chest wall deformity. LUNGS: Equal air entry with no crackles, wheeze, rhonchi or dullness. On 4 L nasal cannula. No conversational dyspnea or accessory muscle use.. Consent spirometer is at bedside CVS: S1 and S2 normal with no audible murmur, regular rhythm. No extra heart sounds ABDOMEN: No hepatosplenomegaly, active bowel sounds, no guarding or rigidity. SPINE: No scoliosis or deformity SKIN: No rashes CENTRAL NERVOUS SYSTEM: No focal deficits, tone is normal in all 4 extremities. EXTREMITIES: There is bilateral 2+ lower extremity swelling. No clubbing, or cyanosis. Peripheral pulses are intact. Results - Laboratory Findings CBC and BMP: 07/26/22 13:35 07/26/22 16:50 PT/INR, D-dimer PT 11.9 sec (9.0-12.0) 07/26/22 13:35 INR 1.2 (<1.2) H 07/26/22 13:35 Abnormal lab findings: Abnormal Labs 07/26/22 07/26/22 07/26/22 00:28 00:28 00:28 WBC 3.4 L RBC 4.00 L Hgb 8.8 L Hct 29.5 L MCV 73.6 L MCH 22.1 L MCHC 30.0 L RDW 18.0 H Plt Count 80 L Lymphocytes # (Manual) 0.37 L INR APTT Potassium BUN 24 H Creatinine 1.31 H Glucose 199 H POC Glucose (mg/dL) Hemoglobin A1c Calcium Troponin I 0.066 H* Albumin Urine Protein Urine Mucus 07/26/22 07/26/22 07/26/22 07:39 07:39 09:53 WBC RBC Hgb Hct MCV MCH MCHC RDW Plt Count Lymphocytes # (Manual) INR APTT 59.0 H Potassium BUN Creatinine Glucose POC Glucose (mg/dL) Hemoglobin A1c 7.7 H Calcium Troponin I 6.390 H* Albumin Urine Protein Urine Mucus 07/26/22 07/26/22 07/26/22 09:53 09:53 13:17 WBC RBC Hgb Hct MCV MCH MCHC RDW Plt Count Lymphocytes # (Manual) INR APTT Potassium 5.5 H BUN 28 H Creatinine 1.27 H Glucose 153 H POC Glucose (mg/dL) 113 H Hemoglobin A1c Calcium 8.3 L Troponin I 11.600 H* Albumin 3.4 L Urine Protein Urine Mucus 07/26/22 07/26/22 07/26/22 13:35 13:35 16:50 WBC 2.9 L RBC 3.34 L Hgb 7.4 L Hct 24.8 L MCV 74.2 L MCH 22.1 L MCHC 29.8 L RDW 18.2 H Plt Count 86 L Lymphocytes # (Manual) 0.32 L INR 1.2 H APTT 38.5 H Potassium 5.3 H BUN 33 H Creatinine 1.29 H Glucose POC Glucose (mg/dL) Hemoglobin A1c Calcium Troponin I Albumin Urine Protein Urine Mucus 07/26/22 21:30 WBC RBC Hgb Hct MCV MCH MCHC RDW Plt Count Lymphocytes # (Manual) INR APTT Potassium BUN Creatinine Glucose POC Glucose (mg/dL) Hemoglobin A1c Calcium Troponin I Albumin Urine Protein 1+ H Urine Mucus Rare H - Diagnostic Findings Chest x-ray: image reviewed Assessment and Plan Assessment: Acute non-ST segment elevation myocardial infarction. Patient is known to have multivessel coronary artery disease. He is under undergone multiple previous PCI and stenting including the LAD, left circumflex, RCA. Heart catheterization done this admission, shows severe stenosis involving the ostium of the LAD and left circumflex, chronically occluded RCA, collaterals from the left system, and an elevated left ventricular end-diastolic pressure of 25-30 mmHg. He is being considered for coronary artery bypass graft revascularization. Ischemic cardiomyopathy. Most recent echocardiogram done on 06/27/2022 shows a reduced ejection fraction of 30-35%. No significant valvular abnormalities. Acute kidney injury Mild pancytopenia, under evaluation Diabetes mellitus type 2, insulin-dependent Hypertension Hyperlipidemia Remote history of smoking over 40 years ago Plan: Patient's medications, labs, chest x-ray reviewed Plan is for possible CABG Will need pulmonary function tests to evaluate preoperative risk Continue supplemental oxygen to maintain oxygen saturation of 92% or greater Encourage incentive spirometer Continue evaluation for source of anemia Trend troponins Continue nitroglycerin infusion for chest pain Currently absent of chest pain Suicide precautions until cleared by psych We will continue to follow I have personally seen and examined the patient, performed the documentation and the assessment and plan as written. Number of minutes spent on the visit:20 Time with Patient: Greater than 30
[2022-07-27] MEDS: LORazepam 1 MG TAB PO PRN ×2 (06:12→09:11)
[2022-07-27 06:25] LABS: Anisocytosis Slight; HCT 24.6 % (39.0-53.0); HGB 7.2 gm/dL (13.0-17.5); Hypochromasia Marked; MCH 21.9 pg (25.0-35.0); MCHC 29.4 g/dL (31.0-37.0); MCV 74.3 fL (80.0-100.0); Mean Platelet Volume 10.4; Microcytosis Moderate; Poikilocytosis Slight; RBC 3.31 m/uL (4.30-5.90); RDW 18.1 % (11.5-15.5); WBC 2.2 k/uL (3.8-10.6)
[2022-07-27 06:28] LABS: Platelet Count 77 k/uL (150-450)
[2022-07-27 06:42] LABS: INR 1.1 (<1.2); Prothrombin Time 11.5 sec (9.0-12.0)
[2022-07-27 06:43] LABS: Band Neutrophils % 1 %; Lymphocytes # (M) 0.51 k/uL (1.0-4.8); Monocytes # (M) 0.18 k/uL (0-1.0); Neutrophils % (M) 68 %; Nucleated Red Blood Cells 0 /100 WBC (0-0); Total Cells Counted 100
[2022-07-27 06:44] LABS: Anisocytosis (M) Present; Ovalocytes Present; Poikilocytosis (M) Present
[2022-07-27 07:02] LABS: ALT 22 U/L (4-49); AST 116 U/L (17-59); African American GFR (CKD) 71 (>60 ml/min/1.73 sqM); Albumin 3.4 g/dL (3.5-5.0); Alkaline Phosphatase 59 U/L (38-126); Anion Gap 7 mmol/L; Blood Urea Nitrogen 32 mg/dL (9-20); Calcium 8.3 mg/dL (8.4-10.2); Carbon Dioxide 29 mmol/L (22-30); Chloride 102 mmol/L (98-107); Non-African American GFR(CKD) 61 (>60 ml/min/1.73 sqM); Potassium 4.9 mmol/L (3.5-5.1); Sodium 138 mmol/L (137-145); Total Bilirubin 0.6 mg/dL (0.2-1.3); Total Protein 6.3 g/dL (6.3-8.2)
[2022-07-27 07:20] LABS: Glucose 47 mg/dL (74-99)
[2022-07-27 07:26] LABS: Glucose,Whole Blood 59 mg/dL (70-110)
[2022-07-27 07:43] LABS: Glucose,Whole Blood 60 mg/dL (70-110)
[2022-07-27] MEDS ORDERED: DEXTROSE 5%-0.9% NACL 1,000 ML IV SCH (08:00)
[2022-07-27 08:17] LABS: Glucose,Whole Blood 98 mg/dL (70-110)
[2022-07-27] MEDS: MUPIROCIN 2% OINT 22 GM TUBE NASAL SCH (09:10)
[2022-07-27] MEDS: INSULIN ASPART (NovoLOG) 100 UNIT/ML VIAL SQ SCH ×4 (09:10→21:15)
[2022-07-27] MEDS: METOPROLOL TARTRATE 25 MG TAB PO SCH ×2 (09:11→23:06)
[2022-07-27] MEDS: SPIRONOLACTONE 25 MG TAB PO SCH (09:11)
[2022-07-27] MEDS: ASPIRIN 81 MG PO SCH (09:11)
[2022-07-27] MEDS: EZETIMIBE 10 MG TAB PO SCH (09:11)
[2022-07-27] MEDS: FAMOTIDINE 20 MG/2 ML VIAL IV SCH (09:12)
[2022-07-27] MEDS ORDERED: SODIUM CHLORIDE 0.9% 1,000 ML IV SCH (09:30)
--- NOTE | 2022-07-27 10:14 | P.NPCON ---
History of Present Illness - Reason for Consult acute renal failure - History of Present Illness Reason for consultation: Acute kidney injury History of present illness: Patient is a 66-year-old male seen in renal consultation for acute kidney injury. Patient baseline creatinine is near 1 and was 1.31 on admission and is stable at 1.22 today. Patient presented to the hospital on 07/26/2022 with chest pain that started about 4 hours prior to arrival. Patient is currently resting in bed and is quite agitated and confused. Family is present at bedside to provide history. Family states patient had multiple cardiac catheterizations done recently and also had a stent placed. Patient has multiple cardiac stents. He underwent cardiac catheterization on 07/26/2022 which showed severe stenosis involving the LAD in the left circumflex as well as chronically occluded right coronary artery. CABG was recommended but now patient is refusing. Denies use of nonsteroidals. Does have long-standing history of diabetes and hypertension. Currently on nitro drip. Blood pressure on the lower side. On 4 L nasal cannula. Vital signs are stable. Blood pressure on the lower side. General: No acute distress. HEENT: Head exam is unremarkable. On nasal cannula. LUNGS: No audible rhonchi or wheezes. HEART: Rate and Rhythm are regular. ABDOMEN: Nontender. EXTREMITITES: No edema. Past Medical History Past Medical History: Coronary Artery Disease (CAD), Chest Pain / Angina, Diabetes Mellitus, GI Bleed (Patient states occasional blood in his stool), Hyperlipidemia, Hypertension, Myocardial Infarction (non Q-wave) Additional Past Medical History / Comment(s): IDDM type II, L knee pain due to tendon problem, bilateral foot pain. History of Any Multi-Drug Resistant Organisms: None Reported Past Surgical History: Heart Catheterization With Stent Additional Past Surgical History / Comment(s): 02/11/16 cath with stent to cx. Other surgical hx: 09/14/14 HEART CATH with stent to RCA (TRIPLE VESSEL DISEASE FOUND). Past Anesthesia/Blood Transfusion Reactions: No Reported Reaction Additional Past Anesthesia/Blood Transfusion Reaction / Comment(s): NO PAST SURGURIES Date of Last Stent Placement:: 2015 Additional Psychological History / Comment(s): Patient has had recent suicidal ideation Smoking Status: Former smoker (With smoking over 40 years ago) Past Alcohol Use History: None Reported Past Drug Use History: None Reported - Past Family History Brother(s) Additional Family Medical History / Comment(s): Pt had one brother who had a CVA at the age of 68yrs and another brother who had a MN at the age of 61yrs. Father History Unknown: Yes Additional Family Medical History / Comment(s): Patient reports that his dad more than likely from EtOH abuse Mother History Unknown: Yes Family Medical History: Cancer (Unknown type of cancer) Medications and Allergies Home Medications Medication Instructions Recorded Confirmed Type Pregabalin [Lyrica] 200 mg PO TID 09/14/14 07/26/22 History Aspirin 325 mg PO DAILY tab 09/15/14 07/26/22 Rx Prasugrel [Effient] 10 mg PO DAILY #30 tab 09/15/14 07/26/22 Rx lisinopriL [Zestril] 2.5 mg PO DAILY #30 tab 09/15/14 07/26/22 Rx Metoprolol Tartrate 12.5 mg PO BID 06/28/18 07/26/22 History Insulin Degludec [Tresiba 40 units SQ DAILY 06/16/22 07/26/22 History Flextouch U-100 Pen] Atorvastatin [Lipitor] 80 mg PO HS #90 tab 06/18/22 07/26/22 Rx Nitroglycerin Sl Tabs [Nitrostat] 0.4 mg SUBLINGUAL Q5M PRN #50 tab 06/18/22 07/26/22 Rx Allergies Allergy/AdvReac Type Severity Reaction Status Date / Time No Known Allergies Allergy Verified 07/26/22 11:34 Physical Exam Vitals: Vital Signs Temp Pulse Pulse Resp BP BP Pulse Ox 07/27/22 09:00 72 19 07/27/22 08:00 98.2 F 78 38 H 105/69 95 07/27/22 07:00 73 22 83/55 07/27/22 06:00 89 20 110/69 07/27/22 05:00 70 17 94/57 07/27/22 04:00 97.8 F 74 19 88/58 98 07/27/22 03:00 71 20 91/63 07/27/22 02:00 71 9 L 89/51 07/27/22 01:00 73 24 85/60 94/59 100 07/27/22 00:09 71 16 92/63 100 07/27/22 00:00 97.7 F 68 18 98/62 100 07/26/22 23:00 70 28 H 101/61 97 07/26/22 22:00 67 26 H 86/59 99 07/26/22 21:00 80 25 H 100/67 98 07/26/22 20:00 97.7 F 90 22 140/96 100 07/26/22 19:00 86 100/61 98 07/26/22 18:00 82 101/62 99 07/26/22 17:15 90 16 116/76 98 07/26/22 17:00 87 18 98/72 99 07/26/22 16:45 96 24 107/70 97 07/26/22 16:30 89 24 90/56 98 07/26/22 16:15 80 20 96/68 98 07/26/22 16:08 24 96 07/26/22 16:00 98.7 F 85 24 97/68 96/68 96 07/26/22 15:45 81 18 107/80 97 07/26/22 15:30 86 22 101/74 93 L 07/26/22 15:15 87 17 115/76 95 07/26/22 15:00 84 87 16 115/76 115/67 95 07/26/22 14:45 84 25 H 102/73 96 07/26/22 14:30 87 89 20 102/82 102/73 95 07/26/22 14:00 85 16 109/74 94 L 07/26/22 13:45 81 16 99/71 94 L 07/26/22 13:30 80 16 97/69 93 L 07/26/22 13:15 97.8 F 93 16 105/70 93 L 07/26/22 11:30 80 19 114/78 100 07/26/22 11:00 80 20 105/78 100 Intake and Output 07/26/22 07/27/22 07/27/22 22:59 06:59 14:59 Intake Total 512.853 20 246 Output Total 270 300 0 Balance 242.853 -280 246 Intake: IV 20 20 10 Invasive Line 1 20 20 10 Intake, IV Titration 12.853 Amount Heparin Sod,Pork in 0.45% 7.403 NaCl 25,000 unit In 0.45 % NaCl 1 250ml.bag @ 12 UNITS/KG/HR 8.709 mls/hr IV .Q24H [facility] Rx#: [id number] Nitroglycerin-D5w Pmx 50 5.45 mg In Dextrose/Water 1 250ml.bag @ 5 MCG/MIN 1.5 mls/hr IV .Q24H [facility] Rx#: [id number] Oral 480 236 Output: Urine 270 300 0 Other: Voiding Method Toilet Urinal # Voids 1 Weight 78 kg Results - Lab Results Most recent lab results Calcium 8.3 mg/dL (8.4-10.2) L 07/27/22 05:26 Magnesium 2.0 mg/dL (1.6-2.3) 07/26/22 00:28 07/27/22 05:26 07/27/22 05:26 Assessment and Plan Plan: Assessment: 1. Acute kidney injury secondary to hemodynamic ATN. Also received IV contrast on 07/26/2021 for cardiac catheterization. Creatinine was 1.3 on admission and is 1.22 today. Baseline creatinine near 1. 1+ protein on UA. 2. Coronary artery disease status post cardiac catheterization on 07/26/2022 with multivessel disease. 3. Anemia. Rule out iron deficiency. 4. Diabetes mellitus. 5. Hyperkalemia secondary to acute kidney injury and lisinopril. Improved. Plan: Normal saline at 50 mL an hour for 6 hours. Continue to hold antihypertensives. Wean nitro drip. CABG is agreeable. Avoid nephrotoxins. Check iron studies. Continue to monitor renal function and urine output. Monitor for contrast- induced acute kidney injury. Thank you for the consultation. I will continue to follow this patient daily during his hospital stay.
--- NOTE | 2022-07-27 10:37 | CA ---
Transthoracic Echo Report Name: Alexis Vazquez Age: 66 Gender: M : 1955 Exam Date: 07/27/2022 07:48 Exam Location: [place] [facility] Ht (in): 65 Wt (lb): 171 Ordering Physician: April Arnett Attending/Referring Phys: [id number], [employer]yer Torie Callahan RDCS Procedure CPT: Indications: LVF, new PA Cardiac Hx: Technical Quality: Fair Contrast 1: Total Dose (mL): Contrast 2: Total Dose (mL): MEASUREMENTS (Male / Female) Normal Values 2D ECHO LV Diastolic Diameter PLAX 5.6 cm 4.2 - 5.9 / 3.9 - 5.3 cm LV Systolic Diameter PLAX 4.8 cm IVS Diastolic Thickness 1.6 cm 0.6 - 1.0 / 0.6 - 0.9 cm LVPW Diastolic Thickness 1.5 cm 0.6 - 1.0 / 0.6 - 0.9 cm LV Relative Wall Thickness 0.6 LV Diastolic Volume MOD 4C 97.5 cm??? LV Systolic Volume MOD 4C 59.3 cm??? LV Ejection Fraction MOD 4C 39.2 % LV Diastolic Length 4C 7.7 cm LV Systolic Length 4C 7.5 cm FINDINGS Left Ventricle Moderately increased septal wall and posterior wall thickness. Left ventricular ejection fraction is estimated at 35-40 %. Right Ventricle Right Atrium Left Atrium Mitral Valve Aortic Valve Tricuspid Valve Pulmonic Valve Pericardium Aorta CONCLUSIONS Limited study mild concentric LVH global decrease in contractility with estimated ejection fraction of 40%. Valvular structures are not well seen Previewed by: Dr. Jesse Klein MD (Electronically Signed) Final Date: 27 July 2022 10:36
--- NOTE | 2022-07-27 10:47 | PN ---
PROGRESS NOTE HISTORY OF PRESENT ILLNESS: Alexis is a 66-year-old gentleman with history of coronary artery disease, status post prior angioplasty of circumflex coronary artery with a chronic occlusion of the right coronary artery who presented to hospital, comes to the hospital complaining of chest pain. As he was walking in to the house, had numbness in both upper extremities. He took sublingual nitroglycerin without any improvement, underwent emergent cardiac catheterization and was advised medical therapy. The patient had a cardiac catheterization on 06/17/2022 by me that revealed severe proximal LAD lesion with stenting of the LAD by Dr. Mullins. He had a repeat cardiac catheterization on June 27 that showed a patent stent in the LAD. His baseline echo showed an ejection fraction of 30% to 35%. I am waiting on an echocardiogram on this admission. His cardiac catheterization yesterday revealed elevated left ventricular end-diastolic pressures with a 70% to 80% ostial LAD stenosis with a patent stent within the LAD, patent stent within the OM, tight ostial circumflex coronary artery stenosis and a chronically occluded right coronary artery. The patient was advised surgery and he is refusing to undergo surgery. EKG shows extensive ST-T wave changes. His troponins have been elevated. It was 0.06 on his initial presentation and had gone up to 18. PHYSICAL EXAMINATION: VITAL SIGNS: Heart rate is 72 beats per minute, blood pressure is 110/62, respiratory rate is 18. There is no jugular venous distention. CHEST: Reveals diminished air entry at the bases. HEART: Reveals first and second heart sounds. No gallop. Has a systolic murmur at the apex. ABDOMEN: Soft. EXTREMITIES: Did not reveal any edema. Peripheral pulses are palpable. LABORATORY DATA: Show a hemoglobin of 7.2, potassium is 4.9, creatinine is 1.2. Troponin is elevated at 18.4. ASSESSMENT: Acute czo-YG-dgjssiz elevation myocardial infarction in a patient with known coronary artery disease with multiple prior angioplasties. PLAN: The patient is on medical therapy at this time. He does not wish to go through bypass surgery. MMODL / IJN: [id number] /
[2022-07-27 11:58] LABS: Glucose,Whole Blood 87 mg/dL (70-110)
[2022-07-27] MEDS: ASCORBIC ACID 500 MG TAB PO SCH (12:45)
[2022-07-27] MEDS: FERROUS SULFATE 325 MG TAB PO SCH (12:45)
[2022-07-27] MEDS ORDERED: NITROGLYCERIN SL TABS 0.4 MG TAB SUBLINGUAL PRN (12:59)
--- NOTE | 2022-07-27 13:37 | P.GSCN ---
History of Present Illness Consult date: 07/27/22 History of present illness: CHIEF COMPLAINT: Chest pain Reason for consult anemia, rule out GI bleed HISTORY OF PRESENT ILLNESS: This is a 66-year-old male who presented with chest pain. He is found to have a non-ST elevated NE. He underwent heart catheterization with severe stenosis involving the of the LAD and the left circumflex and chronically occluded right coronary artery. 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 Cardiology is recommending patient be evaluated for CABG. Patient is currently in the ICU and on nitro drip. Patient is currently refusing CABG. Patient is confused and agitated. History obtained from nurse and family at bedside. Apparently patient did have blood in his stools at home. Per family patient has never had EGD or colonoscopy. Patient had hemoglobin 8.8 on admission and has now trended down to 7.2. His IV heparin has been discontinued due to the drop in hemoglobin. No active bleeding noted. Patient denies any abdominal pain. Denies any nausea or vomiting. Patient is on suicide precautions. PAST MEDICAL HISTORY: Coronary Artery Disease (CAD), Chest Pain / Angina, Diabetes Mellitus, Hyperlipidemia, Hypertension PAST SURGICAL HISTORY: See below MEDICATIONS: See below ALLERGIES: See below SOCIAL HISTORY: No illicit drug use. REVIEW OF SYSTEMS: CONSTITUTIONAL: Denies fever or chills. HEENT: Denies blurred vision, vision changes, or eye pain. Denies hemoptysis CARDIOVASCULAR: Denies chest pain or pressure. RESPIRATORY: No shortness of breath. GASTROINTESTINAL: See HPI for pertinent findings HEMATOLOGIC: Denies bleeding disorders. GENITOURINARY: Denies any blood in urine or increased urinary frequency. SKIN: Denies pruitis. Denies rash. PHYSICAL EXAM: VITAL SIGNS: Reviewed GENERAL: Well-developed in no acute distress. HEENT: No sclera icterus. Extraocular movements grossly intact. Moist buccal mucosa. Head is atraumatic, normocephalic. No nasal drainage. ABDOMEN: Soft. Nondistended. Nontender NEURO: Confused LABORATORY DATA: WBC is 2.2 hgb 7.2 platelets are 77 INR 1.1 Sodium is 138 potassium 4.9 creatinine 1.22 A1c 7.7 LFTs normal lipase 47 Elevated troponins Hepatitis panel negative IMAGING: Echo mild concentric LVH global decrease in contractility with EF of 40% ASSESSMENT: 1. Microcytic anemia 2. Reports blood in stools at home 3. Non-ST elevated NE being evaluated for possible CABG 4. Pancytopenia PLAN: -Further recommendations forthcoming per surgeon -Continue to hold anticoagulation -Check stool for occult blood -Continue to monitor hemoglobin -Continue to monitor for any signs or symptoms of bleeding Physician Rat Poisoner note has been reviewed by physician. Signing provider agrees with the documented findings, assessment, and plan of care. Past Medical History Past Medical History: Coronary Artery Disease (CAD), Chest Pain / Angina, Diabetes Mellitus, GI Bleed (Patient states occasional blood in his stool), Hyperlipidemia, Hypertension, Myocardial Infarction (non Q-wave) Additional Past Medical History / Comment(s): IDDM type II, L knee pain due to tendon problem, bilateral foot pain. History of Any Multi-Drug Resistant Organisms: None Reported Past Surgical History: Heart Catheterization With Stent Additional Past Surgical History / Comment(s): 02/11/16 cath with stent to cx. Other surgical hx: 09/14/14 HEART CATH with stent to RCA (TRIPLE VESSEL DISEASE FOUND). Past Anesthesia/Blood Transfusion Reactions: No Reported Reaction Additional Past Anesthesia/Blood Transfusion Reaction / Comm: NO PAST SURGURIES Date of Last Stent Placement:: 2015 Additional Psychological History / Comment(s): Patient has had recent suicidal ideation Smoking Status: Former smoker (With smoking over 40 years ago) Past Alcohol Use History: None Reported Past Drug Use History: None Reported - Past Family History Brother(s) Additional Family Medical History / Comment(s): Pt had one brother who had a CVA at the age of 68yrs and another brother who had a NE at the age of 61yrs. Father History Unknown: Yes Additional Family Medical History / Comment(s): Patient reports that his dad more than likely from EtOH abuse Mother History Unknown: Yes Family Medical History: Cancer (Unknown type of cancer) Medications and Allergies Home Medications Medication Instructions Recorded Confirmed Type Pregabalin [Lyrica] 200 mg PO TID 09/14/14 07/26/22 History Aspirin 325 mg PO DAILY tab 09/15/14 07/26/22 Rx Prasugrel [Effient] 10 mg PO DAILY #30 tab 09/15/14 07/26/22 Rx lisinopriL [Zestril] 2.5 mg PO DAILY #30 tab 09/15/14 07/26/22 Rx Metoprolol Tartrate 12.5 mg PO BID 06/28/18 07/26/22 History Insulin Degludec [Tresiba 40 units SQ DAILY 06/16/22 07/26/22 History Flextouch U-100 Pen] Atorvastatin [Lipitor] 80 mg PO HS #90 tab 06/18/22 07/26/22 Rx Nitroglycerin Sl Tabs [Nitrostat] 0.4 mg SUBLINGUAL Q5M PRN #50 tab 06/18/22 07/26/22 Rx Allergies Allergy/AdvReac Type Severity Reaction Status Date / Time No Known Allergies Allergy Verified 07/26/22 11:34 Surgical - Exam Vital Signs Temp Pulse Resp BP Pulse Ox 98.3 F 121 H 24 148/74 98 07/26/22 00:07 07/26/22 00:07 07/26/22 00:07 07/26/22 00:07 07/26/22 00:07 Results - Labs 07/27/22 05:26 07/27/22 05:26 Abnormal Lab Results - Last 24 Hours (Table) 07/26/22 07/26/22 07/26/22 Range/Units 07:39 09:53 09:53 WBC (3.8-10.6) k/uL RBC (4.30-5.90) m/uL Hgb (13.0-17.5) gm/dL Hct (39.0-53.0) % MCV (80.0-100.0) fL MCH (25.0-35.0) pg MCHC (31.0-37.0) g/dL RDW (11.5-15.5) % Plt Count (150-450) k/uL Lymphocytes # (Manual) (1.0-4.8) k/uL INR (<1.2) APTT 59.0 H (22.0-30.0) sec Potassium (3.5-5.1) mmol/L BUN (9-20) mg/dL Creatinine (0.66-1.25) mg/dL Glucose (74-99) mg/dL POC Glucose (mg/dL) (70-110) mg/dL Hemoglobin A1c 7.7 H (0.0-6.0) % Calcium (8.4-10.2) mg/dL AST (17-59) U/L Troponin I 11.600 H* (0.000-0.034) ng/mL Albumin (3.5-5.0) g/dL Urine Protein (Negative) Urine Mucus (None) /hpf 07/26/22 07/26/22 07/26/22 Range/Units 09:53 13:17 13:35 WBC (3.8-10.6) k/uL RBC (4.30-5.90) m/uL Hgb (13.0-17.5) gm/dL Hct (39.0-53.0) % MCV (80.0-100.0) fL MCH (25.0-35.0) pg MCHC (31.0-37.0) g/dL RDW (11.5-15.5) % Plt Count (150-450) k/uL Lymphocytes # (Manual) (1.0-4.8) k/uL INR 1.2 H (<1.2) APTT 38.5 H (22.0-30.0) sec Potassium 5.5 H (3.5-5.1) mmol/L BUN 28 H (9-20) mg/dL Creatinine 1.27 H (0.66-1.25) mg/dL Glucose 153 H (74-99) mg/dL POC Glucose (mg/dL) 113 H (70-110) mg/dL Hemoglobin A1c (0.0-6.0) % Calcium 8.3 L (8.4-10.2) mg/dL AST (17-59) U/L Troponin I (0.000-0.034) ng/mL Albumin 3.4 L (3.5-5.0) g/dL Urine Protein (Negative) Urine Mucus (None) /hpf 07/26/22 07/26/22 07/26/22 Range/Units 13:35 16:50 21:30 WBC 2.9 L (3.8-10.6) k/uL RBC 3.34 L (4.30-5.90) m/uL Hgb 7.4 L (13.0-17.5) gm/dL Hct 24.8 L (39.0-53.0) % MCV 74.2 L (80.0-100.0) fL MCH 22.1 L (25.0-35.0) pg MCHC 29.8 L (31.0-37.0) g/dL RDW 18.2 H (11.5-15.5) % Plt Count 86 L (150-450) k/uL Lymphocytes # (Manual) 0.32 L (1.0-4.8) k/uL INR (<1.2) APTT (22.0-30.0) sec Potassium 5.3 H (3.5-5.1) mmol/L BUN 33 H (9-20) mg/dL Creatinine 1.29 H (0.66-1.25) mg/dL Glucose (74-99) mg/dL POC Glucose (mg/dL) (70-110) mg/dL Hemoglobin A1c (0.0-6.0) % Calcium (8.4-10.2) mg/dL AST (17-59) U/L Troponin I (0.000-0.034) ng/mL Albumin (3.5-5.0) g/dL Urine Protein 1+ H (Negative) Urine Mucus Rare H (None) /hpf 07/27/22 07/27/22 07/27/22 Range/Units 05:26 05:26 05:26 WBC 2.2 L (3.8-10.6) k/uL RBC 3.31 L (4.30-5.90) m/uL Hgb 7.2 L (13.0-17.5) gm/dL Hct 24.6 L (39.0-53.0) % MCV 74.3 L (80.0-100.0) fL MCH 21.9 L (25.0-35.0) pg MCHC 29.4 L (31.0-37.0) g/dL RDW 18.1 H (11.5-15.5) % Plt Count 77 L (150-450) k/uL Lymphocytes # (Manual) 0.51 L (1.0-4.8) k/uL INR (<1.2) APTT (22.0-30.0) sec Potassium (3.5-5.1) mmol/L BUN 32 H (9-20) mg/dL Creatinine (0.66-1.25) mg/dL Glucose 47 L* (74-99) mg/dL POC Glucose (mg/dL) (70-110) mg/dL Hemoglobin A1c (0.0-6.0) % Calcium 8.3 L (8.4-10.2) mg/dL AST 116 H (17-59) U/L Troponin I 18.400 H* (0.000-0.034) ng/mL Albumin 3.4 L (3.5-5.0) g/dL Urine Protein (Negative) Urine Mucus (None) /hpf 07/27/22 07/27/22 Range/Units 07:24 07:39 WBC (3.8-10.6) k/uL RBC (4.30-5.90) m/uL Hgb (13.0-17.5) gm/dL Hct (39.0-53.0) % MCV (80.0-100.0) fL MCH (25.0-35.0) pg MCHC (31.0-37.0) g/dL RDW (11.5-15.5) % Plt Count (150-450) k/uL Lymphocytes # (Manual) (1.0-4.8) k/uL INR (<1.2) APTT (22.0-30.0) sec Potassium (3.5-5.1) mmol/L BUN (9-20) mg/dL Creatinine (0.66-1.25) mg/dL Glucose (74-99) mg/dL POC Glucose (mg/dL) 59 L 60 L (70-110) mg/dL Hemoglobin A1c (0.0-6.0) % Calcium (8.4-10.2) mg/dL AST (17-59) U/L Troponin I (0.000-0.034) ng/mL Albumin (3.5-5.0) g/dL Urine Protein (Negative) Urine Mucus (None) /hpf Diabetes panel 07/26/22 07/26/22 07/26/22 Range/Units 07:39 09:53 16:50 Sodium 137 138 (137-145) mmol/L Potassium 5.5 H 5.3 H (3.5-5.1) mmol/L Chloride 105 102 (98-107) mmol/L Carbon Dioxide 26 30 (22-30) mmol/L BUN 28 H 33 H (9-20) mg/dL Creatinine 1.27 H 1.29 H (0.66-1.25) mg/dL Glucose 153 H 80 (74-99) mg/dL Hemoglobin A1c 7.7 H (0.0-6.0) % Calcium 8.3 L 8.4 (8.4-10.2) mg/dL AST 55 (17-59) U/L ALT 18 (4-49) U/L Alkaline Phosphatase 67 (38-126) U/L Total Protein 6.3 (6.3-8.2) g/dL Albumin 3.4 L (3.5-5.0) g/dL 07/27/22 Range/Units 05:26 Sodium 138 (137-145) mmol/L Potassium 4.9 (3.5-5.1) mmol/L Chloride 102 (98-107) mmol/L Carbon Dioxide 29 (22-30) mmol/L BUN 32 H (9-20) mg/dL Creatinine 1.22 (0.66-1.25) mg/dL Glucose 47 L* (74-99) mg/dL Hemoglobin A1c (0.0-6.0) % Calcium 8.3 L (8.4-10.2) mg/dL AST 116 H (17-59) U/L ALT 22 (4-49) U/L Alkaline Phosphatase 59 (38-126) U/L Total Protein 6.3 (6.3-8.2) g/dL Albumin 3.4 L (3.5-5.0) g/dL Thyroid panel 07/27/22 Range/Units 05:26 TSH 1.880 (0.465-4.680) mIU/L Calcium panel 07/26/22 07/26/22 07/27/22 Range/Units 09:53 16:50 05:26 Calcium 8.3 L 8.4 8.3 L (8.4-10.2) mg/dL Albumin 3.4 L 3.4 L (3.5-5.0) g/dL Pituitary panel 07/26/22 07/26/22 07/27/22 Range/Units 09:53 16:50 05:26 Sodium 137 138 138 (137-145) mmol/L Potassium 5.5 H 5.3 H 4.9 (3.5-5.1) mmol/L Chloride 105 102 102 (98-107) mmol/L Carbon Dioxide 26 30 29 (22-30) mmol/L BUN 28 H 33 H 32 H (9-20) mg/dL Creatinine 1.27 H 1.29 H 1.22 (0.66-1.25) mg/dL Glucose 153 H 80 47 L* (74-99) mg/dL Calcium 8.3 L 8.4 8.3 L (8.4-10.2) mg/dL TSH 1.880 (0.465-4.680) mIU/L Adrenal panel 07/26/22 07/26/22 07/27/22 Range/Units 09:53 16:50 05:26 Sodium 137 138 138 (137-145) mmol/L Potassium 5.5 H 5.3 H 4.9 (3.5-5.1) mmol/L Chloride 105 102 102 (98-107) mmol/L Carbon Dioxide 26 30 29 (22-30) mmol/L BUN 28 H 33 H 32 H (9-20) mg/dL Creatinine 1.27 H 1.29 H 1.22 (0.66-1.25) mg/dL Glucose 153 H 80 47 L* (74-99) mg/dL Calcium 8.3 L 8.4 8.3 L (8.4-10.2) mg/dL Total Bilirubin 0.5 0.6 (0.2-1.3) mg/dL AST 55 116 H (17-59) U/L ALT 18 22 (4-49) U/L Alkaline Phosphatase 67 59 (38-126) U/L Total Protein 6.3 6.3 (6.3-8.2) g/dL Albumin 3.4 L 3.4 L (3.5-5.0) g/dL
--- NOTE | 2022-07-27 14:36 | P.GSCN ---
History of Present Illness Consult date: 07/27/22 Reason for Consult: Coronary artery disease, acute non-ST elevated myocardial infarction this admission Requesting physician: Lenny Jordan History of present illness: This is a 66-year-old gentleman who follows with Dr. Thom Vazquez on an outpatient basis for his primary care service. He has a past medical history significant for coronary artery disease with previous multiple prior PCI, history of myocardial infarction, hypertension, hyperlipidemia, ischemic cardiomyopathy with an ejection fraction of 30-35%, insulin-dependent diabetes mellitus type 2, chronic anemia of unknown etiology and remote history of nicotine dependence quit smoking over 40 years ago. The patient presented to the emergency department here at [facility] yesterday with complaints of chest pain with numbness to his bilateral upper extremities and shortness of breath associated with the chest pain. The patient reports that he has been having episodes of chest pain over the past 2 months with activity and even at r est. He reports that he took 2 nitroglycerin tablets without relief yesterday prior to presenting to the emergency department here at [facility]. He denies any nausea, vomiting, fever, chills, dizziness, headache, palpitations, presyncope or syncope. He does admit also to having some blood in his stools occasionally. In the emergency department his laboratory results showed a WBC count of 3.4, hemoglobin 8.8, hematocrit 29.5, platelet count of 80, sodium 139, potassium 4.7, BUN 24, creatinine 1.31, glucose 199, and positive serial troponins as high as 11.600 ruling him in for a non-ST elevated myocardial infarction. A 12-lead EKG showed normal sinus rhythm with ST depre ssion and T-wave inversion in the anterior leads. Subsequently, cardiology was consulted and the patient was taken for cardiac catheterization which demonstrated multivessel coronary artery disease with severe stenosis involving the ostium of the LAD and circumflex coronary artery and a chronically occluded right coronary artery with collaterals from the left system and an elevated LVEDP. Nitroglycerin drip is infusing and currently denies any complaints of chest pain, numbness to his bilateral upper extremities or shortness of breath. The patient's family is at his bedside, and the patient is stating that he does not want to have any surgery and he wants to go home today and leave AGAINST MEDICAL ADVICE. According to his bedside nurse the patient has also had some suicidal ideations recently and had a planned tissue to himself with a rifle although could not reach the trigger. Due to findings on the cardiac catheterization a consult was placed to Dr. Giuliano Silveira from cardiothoracic surgery for further evaluation and treatment recommendations including myocardial revascularization surgery. Review of Systems A 14 point review of systems was completed and was negative except as mentioned in the HPI. Past Medical History Past Medical History: Coronary Artery Disease (CAD), Chest Pain / Angina, Diabetes Mellitus, GI Bleed (Patient states occasional blood in his stool), Hyperlipidemia, Hypertension, Myocardial Infarction (non Q-wave) Additional Past Medical History / Comment(s): IDDM type II, L knee pain due to tendon problem, bilateral foot pain. History of Any Multi-Drug Resistant Organisms: None Reported Past Surgical History: Heart Catheterization With Stent Additional Past Surgical History / Comment(s): 02/11/16 cath with stent to cx. Other surgical hx: 09/14/14 HEART CATH with stent to RCA (TRIPLE VESSEL DISEASE FOUND). Past Anesthesia/Blood Transfusion Reactions: No Reported Reaction Additional Past Anesthesia/Blood Transfusion Reaction / Comm: NO PAST SURGURIES Date of Last Stent Placement:: 2015 Additional Psychological History / Comment(s): Patient has had recent suicidal ideation Smoking Status: Former smoker (With smoking over 40 years ago) Past Alcohol Use History: None Reported Past Drug Use History: None Reported - Past Family History Brother(s) Additional Family Medical History / Comment(s): Pt had one brother who had a CVA at the age of 68yrs and another brother who had a SC at the age of 61yrs. Father History Unknown: Yes Additional Family Medical History / Comment(s): Patient reports that his dad more than likely from EtOH abuse Mother History Unknown: Yes Family Medical History: Cancer (Unknown type of cancer) Medications and Allergies Home Medications Medication Instructions Recorded Confirmed Type Pregabalin [Lyrica] 200 mg PO TID 09/14/14 07/26/22 History Aspirin 325 mg PO DAILY tab 09/15/14 07/26/22 Rx Prasugrel [Effient] 10 mg PO DAILY #30 tab 09/15/14 07/26/22 Rx lisinopriL [Zestril] 2.5 mg PO DAILY #30 tab 09/15/14 07/26/22 Rx Metoprolol Tartrate 12.5 mg PO BID 06/28/18 07/26/22 History Insulin Degludec [Tresiba 40 units SQ DAILY 06/16/22 07/26/22 History Flextouch U-100 Pen] Atorvastatin [Lipitor] 80 mg PO HS #90 tab 06/18/22 07/26/22 Rx Nitroglycerin Sl Tabs [Nitrostat] 0.4 mg SUBLINGUAL Q5M PRN #50 tab 06/18/22 07/26/22 Rx Allergies Allergy/AdvReac Type Severity Reaction Status Date / Time No Known Allergies Allergy Verified 07/26/22 11:34 Surgical - Exam Vital Signs Temp Pulse Resp BP Pulse Ox 98.3 F 121 H 24 148/74 98 07/26/22 00:07 07/26/22 00:07 07/26/22 00:07 07/26/22 00:07 07/26/22 00:07 - General well developed, well nourished, no distress, no pain, chronically ill - Eyes PERRL, normal ocular movement, no pale, no icteric - ENT normal pinna, normal nares, normal mucosa, no hearing loss, no congestion, poor long term - Neck Neck is supple, no lymphadenopathy. no masses, no bruits, trachea midline, no venous distension - Respiratory Lungs sounds essentially clear throughout, few scattered crackles to his bilateral bases. Respirations are symmetrical and nonlabored. Oxygen saturation are 98% on 4 L nasal cannula. - Cardiovascular Regular rhythm and rate. S1 and S2 present, negative for S3, gallop or murmur. +1 edema to his bilateral lower extremities. - Abdomen Abdomen is soft, slightly distended and nontender. Active bowel sounds present in all 4 bowel quadrants. No guarding or rigidity. No organomegaly appreciated. - Genitourinary Deferred - Rectum Deferred - Integumentary Skin is warm and dry. No clubbing or cyanosis is present. Pale in color. Multiple tattoos. no rash, no growths - Neurologic No focal deficits. - Musculoskeletal Moves all 4 extremities with equal strength bilaterally. - Psychiatric oriented to time, oriented to person, oriented to place, speech is normal, memory intact Results - Labs 07/27/22 05:26 07/27/22 05:26 Abnormal Lab Results - Last 24 Hours (Table) 07/26/22 07/26/22 07/26/22 Range/Units 07:39 07:39 09:53 WBC (3.8-10.6) k/uL RBC (4.30-5.90) m/uL Hgb (13.0-17.5) gm/dL Hct (39.0-53.0) % MCV (80.0-100.0) fL MCH (25.0-35.0) pg MCHC (31.0-37.0) g/dL RDW (11.5-15.5) % Plt Count (150-450) k/uL Lymphocytes # (Manual) (1.0-4.8) k/uL INR (<1.2) APTT 59.0 H (22.0-30.0) sec Potassium (3.5-5.1) mmol/L BUN (9-20) mg/dL Creatinine (0.66-1.25) mg/dL Glucose (74-99) mg/dL POC Glucose (mg/dL) (70-110) mg/dL Hemoglobin A1c 7.7 H (0.0-6.0) % Calcium (8.4-10.2) mg/dL AST (17-59) U/L Troponin I 6.390 H* (0.000-0.034) ng/mL Albumin (3.5-5.0) g/dL Urine Protein (Negative) Urine Mucus (None) /hpf 07/26/22 07/26/22 07/26/22 Range/Units 09:53 09:53 13:17 WBC (3.8-10.6) k/uL RBC (4.30-5.90) m/uL Hgb (13.0-17.5) gm/dL Hct (39.0-53.0) % MCV (80.0-100.0) fL MCH (25.0-35.0) pg MCHC (31.0-37.0) g/dL RDW (11.5-15.5) % Plt Count (150-450) k/uL Lymphocytes # (Manual) (1.0-4.8) k/uL INR (<1.2) APTT (22.0-30.0) sec Potassium 5.5 H (3.5-5.1) mmol/L BUN 28 H (9-20) mg/dL Creatinine 1.27 H (0.66-1.25) mg/dL Glucose 153 H (74-99) mg/dL POC Glucose (mg/dL) 113 H (70-110) mg/dL Hemoglobin A1c (0.0-6.0) % Calcium 8.3 L (8.4-10.2) mg/dL AST (17-59) U/L Troponin I 11.600 H* (0.000-0.034) ng/mL Albumin 3.4 L (3.5-5.0) g/dL Urine Protein (Negative) Urine Mucus (None) /hpf 07/26/22 07/26/22 07/26/22 Range/Units 13:35 13:35 16:50 WBC 2.9 L (3.8-10.6) k/uL RBC 3.34 L (4.30-5.90) m/uL Hgb 7.4 L (13.0-17.5) gm/dL Hct 24.8 L (39.0-53.0) % MCV 74.2 L (80.0-100.0) fL MCH 22.1 L (25.0-35.0) pg MCHC 29.8 L (31.0-37.0) g/dL RDW 18.2 H (11.5-15.5) % Plt Count 86 L (150-450) k/uL Lymphocytes # (Manual) 0.32 L (1.0-4.8) k/uL INR 1.2 H (<1.2) APTT 38.5 H (22.0-30.0) sec Potassium 5.3 H (3.5-5.1) mmol/L BUN 33 H (9-20) mg/dL Creatinine 1.29 H (0.66-1.25) mg/dL Glucose (74-99) mg/dL POC Glucose (mg/dL) (70-110) mg/dL Hemoglobin A1c (0.0-6.0) % Calcium (8.4-10.2) mg/dL AST (17-59) U/L Troponin I (0.000-0.034) ng/mL Albumin (3.5-5.0) g/dL Urine Protein (Negative) Urine Mucus (None) /hpf 07/26/22 07/27/22 07/27/22 Range/Units 21:30 05:26 05:26 WBC 2.2 L (3.8-10.6) k/uL RBC 3.31 L (4.30-5.90) m/uL Hgb 7.2 L (13.0-17.5) gm/dL Hct 24.6 L (39.0-53.0) % MCV 74.3 L (80.0-100.0) fL MCH 21.9 L (25.0-35.0) pg MCHC 29.4 L (31.0-37.0) g/dL RDW 18.1 H (11.5-15.5) % Plt Count 77 L (150-450) k/uL Lymphocytes # (Manual) 0.51 L (1.0-4.8) k/uL INR (<1.2) APTT (22.0-30.0) sec Potassium (3.5-5.1) mmol/L BUN 32 H (9-20) mg/dL Creatinine (0.66-1.25) mg/dL Glucose 47 L* (74-99) mg/dL POC Glucose (mg/dL) (70-110) mg/dL Hemoglobin A1c (0.0-6.0) % Calcium 8.3 L (8.4-10.2) mg/dL AST 116 H (17-59) U/L Troponin I (0.000-0.034) ng/mL Albumin 3.4 L (3.5-5.0) g/dL Urine Protein 1+ H (Negative) Urine Mucus Rare H (None) /hpf 07/27/22 Range/Units 07:24 WBC (3.8-10.6) k/uL RBC (4.30-5.90) m/uL Hgb (13.0-17.5) gm/dL Hct (39.0-53.0) % MCV (80.0-100.0) fL MCH (25.0-35.0) pg MCHC (31.0-37.0) g/dL RDW (11.5-15.5) % Plt Count (150-450) k/uL Lymphocytes # (Manual) (1.0-4.8) k/uL INR (<1.2) APTT (22.0-30.0) sec Potassium (3.5-5.1) mmol/L BUN (9-20) mg/dL Creatinine (0.66-1.25) mg/dL Glucose (74-99) mg/dL POC Glucose (mg/dL) 59 L (70-110) mg/dL Hemoglobin A1c (0.0-6.0) % Calcium (8.4-10.2) mg/dL AST (17-59) U/L Troponin I (0.000-0.034) ng/mL Albumin (3.5-5.0) g/dL Urine Protein (Negative) Urine Mucus (None) /hpf Diabetes panel 07/26/22 07/26/22 07/26/22 Range/Units 07:39 09:53 16:50 Sodium 137 138 (137-145) mmol/L Potassium 5.5 H 5.3 H (3.5-5.1) mmol/L Chloride 105 102 (98-107) mmol/L Carbon Dioxide 26 30 (22-30) mmol/L BUN 28 H 33 H (9-20) mg/dL Creatinine 1.27 H 1.29 H (0.66-1.25) mg/dL Glucose 153 H 80 (74-99) mg/dL Hemoglobin A1c 7.7 H (0.0-6.0) % Calcium 8.3 L 8.4 (8.4-10.2) mg/dL AST 55 (17-59) U/L ALT 18 (4-49) U/L Alkaline Phosphatase 67 (38-126) U/L Total Protein 6.3 (6.3-8.2) g/dL Albumin 3.4 L (3.5-5.0) g/dL 07/27/22 Range/Units 05:26 Sodium 138 (137-145) mmol/L Potassium 4.9 (3.5-5.1) mmol/L Chloride 102 (98-107) mmol/L Carbon Dioxide 29 (22-30) mmol/L BUN 32 H (9-20) mg/dL Creatinine 1.22 (0.66-1.25) mg/dL Glucose 47 L* (74-99) mg/dL Hemoglobin A1c (0.0-6.0) % Calcium 8.3 L (8.4-10.2) mg/dL AST 116 H (17-59) U/L ALT 22 (4-49) U/L Alkaline Phosphatase 59 (38-126) U/L Total Protein 6.3 (6.3-8.2) g/dL Albumin 3.4 L (3.5-5.0) g/dL Thyroid panel 07/27/22 Range/Units 05:26 TSH 1.880 (0.465-4.680) mIU/L Calcium panel 07/26/22 07/26/22 07/27/22 Range/Units 09:53 16:50 05:26 Calcium 8.3 L 8.4 8.3 L (8.4-10.2) mg/dL Albumin 3.4 L 3.4 L (3.5-5.0) g/dL Pituitary panel 07/26/22 07/26/22 07/27/22 Range/Units 09:53 16:50 05:26 Sodium 137 138 138 (137-145) mmol/L Potassium 5.5 H 5.3 H 4.9 (3.5-5.1) mmol/L Chloride 105 102 102 (98-107) mmol/L Carbon Dioxide 26 30 29 (22-30) mmol/L BUN 28 H 33 H 32 H (9-20) mg/dL Creatinine 1.27 H 1.29 H 1.22 (0.66-1.25) mg/dL Glucose 153 H 80 47 L* (74-99) mg/dL Calcium 8.3 L 8.4 8.3 L (8.4-10.2) mg/dL TSH 1.880 (0.465-4.680) mIU/L Adrenal panel 07/26/22 07/26/22 07/27/22 Range/Units 09:53 16:50 05:26 Sodium 137 138 138 (137-145) mmol/L Potassium 5.5 H 5.3 H 4.9 (3.5-5.1) mmol/L Chloride 105 102 102 (98-107) mmol/L Carbon Dioxide 26 30 29 (22-30) mmol/L BUN 28 H 33 H 32 H (9-20) mg/dL Creatinine 1.27 H 1.29 H 1.22 (0.66-1.25) mg/dL Glucose 153 H 80 47 L* (74-99) mg/dL Calcium 8.3 L 8.4 8.3 L (8.4-10.2) mg/dL Total Bilirubin 0.5 0.6 (0.2-1.3) mg/dL AST 55 116 H (17-59) U/L ALT 18 22 (4-49) U/L Alkaline Phosphatase 67 59 (38-126) U/L Total Protein 6.3 6.3 (6.3-8.2) g/dL Albumin 3.4 L 3.4 L (3.5-5.0) g/dL - Imaging Chest x-ray: report reviewed, image reviewed EKG: image reviewed Assessment and Plan Assessment: Multivessel coronary artery disease, acute non-ST elevated myocardial infarction this admission History of coronary artery disease with previous multiple PCI Ischemic cardiomyopathy, transthoracic 2-D echocardiogram from 06/27/2022 shows an ejection fraction of 30-35% Pancytopenia, unknown etiology, occasional bloody stools Acute kidney injury Insulin-dependent diabetes mellitus type 2 Hypertension Hyperlipidemia Remote history of nicotine dependence quit smoking over 40 years ago Plan: The patient was seen and examined at his bedside in the intensive care unit. His chart diagnostics were reviewed. His case was discussed in detail with Dr. Giuliano Silveira from cardiothoracic surgery. Preoperative testing and preoperative teaching had been initiated, although the testing will be canceled as the patient is not wanting to proceed with any surgical intervention. Dr. Silveira spoke with the patient and family, confirmed that the patient does not want to proceed with surgery. Medical management and other comorbidities per primary care service. Thank you Dr. Jordan for this consult and we will continue to follow the patient on an as-needed basis. We would be happy to see the patient again if he were to change his mind regarding myocardial revascularization surgery. I have personally seen and examined the patient, performed the documentation and the assessment and plan as written. 30 minutes spent on the visit . Unruly HUFFMAN
[2022-07-27 15:42] LABS: Chol/HDL Ratio 3.53 Ratio; LDL Cholesterol,Calculated 70.7 mg/dL (0.0-131.0); VLDL Calculation 15.28 mg/dL (5.00-40.00)
[2022-07-27] MEDS ORDERED: QUEtiapine 25 MG TAB PO PRN (16:01)
[2022-07-27] MEDS ORDERED: flUPHENAZine 2.5 MG/ML (MDV) 10 ML VIAL IM PRN (16:02)
--- NOTE | 2022-07-27 16:12 | P.CN ---
Psychiatric Consult - . Consult date: 07/27/22 Consult:: 07/27/22 14:46 IDENTIFYING DATA: This patient is a 66-year-old male, currently and lives with his in a house. He has 3 kids. REASON FOR REFERRAL: Psychiatry was consulted for "high risk for suicide" HISTORY OF PRESENT ILLNESS: The patient presented to the hospital initially on 07/26 with a history of several medical conditions. Patient was also endorsing chest pain. Patient is known to have severely elevated troponins, he was also found to be anemic and have low platelets. Patient has been followed by cardiology who is recommending a CABG however apparently patient has been confused and agitated recently and refusing care and assessments. Patient's nurse claims that she petitioned him due to the fact that he was endorsing depression, suicidal thoughts of wanting to shoot himself. Patient was seen today at the bedside and agreeable to speak to blurb writer. His was at his side. Patient's was fairly confused during the initial part of the interview and appeared to be somewhat lethargic. Poor concentration. He did not know his location despite being told that he was in the hospital. He does not know today's date. He knew his name only and believed that he was "67 years old". Does not know his date of . He gave minimal answers and states that he feels "not too bad" and also states that he was feeling "strange". He is denying any all right depression or anxiety at this time. When asked about suicidal thoughts he states "I don't know" and also states that he does not know about if he is experiencing auditory hallucinations or not. Denies any visual hallucinations and denies any paranoia or delusions. Patients admits to using no recreational drugs or cigarettes. Plater Helper spoke with patient's outside of the room for further history and as noted below. She did state that patient has "always had attitude" and "does what he wants". She states that he does take medications however has not been very good at following up in trusting physicians. She states that she does not know if he has access to guns or not at home. PAST PSYCHIATRIC HISTORY: Patient has no known psychiatric condition. Patient denies being on any psychiatric medications. Patient denies any previous psychiatric hospitalizations. Patient denies any psychiatric outpatient follow- up. Patient denies any history of suicide attempts in the past. Past Medical History: Coronary Artery Disease (CAD), Chest Pain / Angina, Diabetes Mellitus, Hyperlipidemia, Hypertension Additional Past Medical History / Comment(s): IDDM type II, L knee pain due to tendon problem, bilateral foot pain. History of Any Multi-Drug Resistant Organisms: None Reported Additional Past Surgical History / Comment(s): 02/11/16 cath with stent to cx. Other surgical hx: 09/14/14 HEART CATH with stent to RCA (TRIPLE VESSEL DISEASE FOUND). Past Anesthesia/Blood Transfusion Reactions: No Reported Reaction Additional Past Anesthesia/Blood Transfusion Reaction / Comment(s): NO PAST SURGURIES Date of Last Stent Placement:: 2015 Past Psychological History: No Psychological Hx Reported Past Alcohol Use History: None Reported Past Drug Use History: None Reported ALLERGIES: as per EMR. CHEMICAL DEPENDENCY HISTORY: as per HPI. FAMILY PSYCHIATRIC/SUBSTANCE USE HISTORY: denies SOCIAL HISTORY: Patient was born and raised in [place]. 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 He has 3 kids, currently lives with one of his sons, his in the house. He apparently went to penitentiary and jail about 40 years ago for breaking and entering. MENTAL STATUS EXAM: General Appearance: Patient appears to be has a shaved head, various tattoos on his arms, stated age is lethargic at times, poor concentration. Confused, Patient appears to have fair hygiene and grooming wearing hospital gown with poor eye contact. Behavior: Patient is calmly sitting in his chair, no agitation. Confused. Speech: Patient's speech is fluent and nonpressured. Hesitant and minimal Mood/Affect: Patient reports their mood is "strange", affect is congruent Suicidality/Homicidality: Patient is unable to give a response to suicidal thoughts. Perceptions: Patient denies any visual hallucinations and he states that he does not know if he is hearing voices or not. Though content/process: [place], poverty of content. No delusions. Memory and concentration: AOX to name only, poor concentration, poor attention span. Cannot spell "WORLD" backwards Judgment and insight: poor IMPRESSIONS: Delirium, likely secondary to general medical condition and toxic metabolic possible underlying depression PLAN: -At this time patient DOES NOT meet criteria for inpatient psychiatric admission. -Patient DOES NOT have decision making capacity at this time and is unable to reason through and communicate/appreciate the risks, benefits and alternatives to treatment. -Delirium precautions recommended with patient including - avoiding use of narcotics and VIDEO POKER FLOORMAN sedatives, limit anticholinergic medications when possible, frequent re-orientation, minimize use of restraints, open window shades during the day and close them at night -Would recommend the following medication changes/additions: Standing dose of Seroquel 25 mg daily at bedtime for delirium/confusion/insomnia. added extra 25 mg when necessary for insomnia. Prolixin every 8 hours by mouth or IM when necessary for agitation/psychosis. -continue with medical mgt. once patient clears more from his delirium then medical team and/or cardio team should speak again with patient about suggested surgery/procedure to see if patient comprehends and is agreeable -Communicated plan to patient's nurse -Will continue to follow along if needed. -Please contact with any questions. 07/27/22 16:03
[2022-07-27] MEDS: PREGABALIN 100 MG CAP PO SCH ×2 (16:18→23:06)
[2022-07-27] MEDS: NITROGLYCERIN-D5W PMX 50 MG in DEXTROSE/WATER 1 250ML.BAG IV SCH (16:18)
[2022-07-27 16:25] LABS: Glucose,Whole Blood 81 mg/dL (70-110)
[2022-07-27] MEDS: NITROGLYCERIN OINT 1 INCH/GM PACKET TOPICAL SCH (17:40)
[2022-07-27 17:52] LABS: Glucose,Whole Blood 113 mg/dL (70-110)
[2022-07-27 20:28] LABS: Glucose,Whole Blood 101 mg/dL (70-110)
[2022-07-27 20:55] LABS: ABG Base Excess 0.7 mmol/L; ABG HCO3 26 mmol/L (21-25); ABG Oxygen Saturation 99.8 % (94-97); ABG PCO2 47 mmHg (35-45); ABG PH 7.35 (7.35-7.45); ABG PO2 132 mmHg (83-108); ABG TCO2 28 mmol/L (19-24); Allen Test Performed? Yes
[2022-07-27] MEDS ORDERED: FAMOTIDINE 20 MG TAB PO SCH (21:00)
[2022-07-27 22:22] LABS: Anisocytosis Slight; HCT 21.5 % (39.0-53.0); Hypochromasia Marked; MCH 22.8 pg (25.0-35.0); MCHC 30.9 g/dL (31.0-37.0); MCV 73.8 fL (80.0-100.0); Mean Platelet Volume 10.7; Microcytosis Moderate; Poikilocytosis Slight; RBC 2.91 m/uL (4.30-5.90); WBC 1.7 k/uL (3.8-10.6)
[2022-07-27] MEDS: ATORVASTATIN 80 MG TAB PO SCH (23:05)
[2022-07-27] MEDS: INSULIN DETEMIR (LEVEMIR) 100 UNIT/ML SYR SQ SCH (23:06)
[2022-07-27] MEDS: QUEtiapine 25 MG TAB PO SCH (23:06)
[2022-07-27 23:07] LABS: Glucose,Whole Blood 93 mg/dL (70-110)
[2022-07-27 23:37] LABS: HGB 6.6 gm/dL (13.0-17.5)
[2022-07-27] MEDS: PANTOPRAZOLE 40 MG/10 ML VIAL IVP SCH (23:45)
[2022-07-28 00:24] LABS: % Iron Saturation 4.3 (15.00-50.00); Ferritin 46.9 ng/mL (22.0-322.0)
[2022-07-28 00:55] LABS: Neutrophils % (M) 88 %; Nucleated Red Blood Cells 1 /100 WBC (0-0); Total Cells Counted 100
--- NOTE | 2022-07-28 01:01 | CT ---
EXAM: CT Head Without Intravenous Contrast CLINICAL HISTORY: ITS.REASON CT Reason: altered mental status TECHNIQUE: Axial computed tomography images of the head/brain without intravenous contrast. CTDI is 49.2 mGy and DLP is 1202.4 mGy-cm. This CT exam was performed using one or more of the following dose reduction techniques: automated exposure control, adjustment of the mA and/or kV according to patient size, and/or use of iterative reconstruction technique. COMPARISON: No relevant prior studies available. FINDINGS: Brain: Mild chronic small vessel ischemic disease. Gutierrez-white matter differentiation maintained. No acute intracranial hemorrhage, mass- effect, or edema. Age-appropriate parenchymal volume. Ventricles: Unremarkable. No hydrocephalus. Bones/joints: Unremarkable. No acute fracture. Soft tissues: Unremarkable. Vasculature: Intracranial atherosclerosis. Sinuses: Unremarkable as visualized. No acute sinusitis. Mastoid air cells: Unremarkable as visualized. No mastoid effusion. IMPRESSION: No acute intracranial process.
[2022-07-28 01:06] LABS: Platelet Count 59 k/uL (150-450)
--- NOTE | 2022-07-28 01:12 | CT ---
EXAM: CT Abdomen and Pelvis With Intravenous Contrast CLINICAL HISTORY: ITS.REASON CT Reason: abdominal distention and pain TECHNIQUE: Axial computed tomography images of the abdomen and pelvis with intravenous contrast. CTDI is 33.2 mGy and DLP is 1674.2 mGy-cm. This CT exam was performed using one or more of the following dose reduction techniques: automated exposure control, adjustment of the mA and/or kV according to patient size, and/or use of iterative reconstruction technique. COMPARISON: No relevant prior studies available. FINDINGS: There are small left and moderate right pleural effusions with compressive atelectasis at the lung bases. Hyperdensity within the gallbladder suggest sludge. There is no cholecystitis or biliary dilatation. Liver, spleen, pancreas, and adrenal glands are unremarkable. Kidneys enhance symmetrically. There is no hydronephrosis. There is atherosclerosis without abdominal aortic aneurysm. There is no adenopathy. There is trace ascites. There is no free air. Appendix is normal. There is diverticulosis coli without diverticulitis. There is no bowel obstruction or inflammation. Urinary bladder is normal. Prostate calcifications are noted. Prostate is normal in size. There are no acute osseous findings. IMPRESSION: 1. Small left and moderate right pleural effusions with associated compressive atelectasis. 2. Trace ascites; otherwise, no evidence of acute intra-abdominal process.
[2022-07-28] MEDS: NITROGLYCERIN OINT 1 INCH/GM PACKET TOPICAL SCH ×3 (01:42→16:03)
--- NOTE | 2022-07-28 02:05 | PN ---
PROGRESS NOTE DATE OF SERVICE: 07/27/2022 SUBJECTIVE: This is a 66-year-old gentleman admitted with chest pain, acute gaw-JI-vkfeebl- elevation myocardial infarction, is basically noncompliant. The patient is closely monitored in ICU. The patient is confused. The patient apparently had discussion with staff and the patient apparently has depression and had some suicidal ideations involving the guns from the history conveyed to me by Luciana, the staff nurse. Currently, the patient is confused, unable to provide a coherent history. PAST MEDICAL HISTORY: Reviewed. REVIEW OF SYSTEMS: Could not be taken. CURRENT MEDICATIONS: Reviewed include aspirin. The rest of medication and doses are reviewed. PHYSICAL EXAMINATION: VITAL SIGNS: Pulse is 67, blood pressure 94/64, respirations 26. HEENT: Conjunctivae normal. CARDIOVASCULAR: S1, S2. RESPIRATIONS: A few scattered rhonchi. ABDOMEN: Soft, nondistended. EXTREMITIES: Diffusely weak. LABORATORY DATA: Reviewed. Hemoglobin 7.2. Troponin noted. ASSESSMENT: 1. Chest pain, possible acute jxb-DE-vkogyof-elevation myocardial infarction with troponins 18.400. 2. Suicidal ideations and depression. 3. Anemia with pancytopenia. 4. History of coronary artery disease. 5. Diabetes mellitus, type 2. 6. History of noncompliance. RECOMMENDATIONS AND DISCUSSION: This is a 66-year-old gentleman, who presented with multiple complex medical issues. At this time, I recommend to continue with antiplatelet agents. Repeat labs. Monitor hemoglobin closely. Otherwise, resume the home medications and the prognosis guarded because of multiple complex medical issues. I would also recommend psychiatric consultation for the suicidal ideations as well. I have done the preliminary certification regarding that. Once again, the prognosis is extremely guarded. Discussed with the . MMODL / IJN: [id number] /
[2022-07-28 04:08] LABS: Glucose,Whole Blood 82 mg/dL (70-110)
[2022-07-28 06:51] LABS: Glucose,Whole Blood 95 mg/dL (70-110)
[2022-07-28] MEDS: INSULIN ASPART (NovoLOG) 100 UNIT/ML VIAL SQ SCH ×4 (06:52→20:15)
[2022-07-28 07:49] LABS: Calcium 7.8 mg/dL (8.4-10.2); Potassium 4.4 mmol/L (3.5-5.1)
[2022-07-28 08:08] LABS: Anisocytosis Slight; HCT 26.5 % (39.0-53.0); Hypochromasia Marked; MCH 23.2 pg (25.0-35.0); MCV 74.8 fL (80.0-100.0); Mean Platelet Volume 13.4; Microcytosis Moderate; Platelet Count 70 k/uL (150-450); Poikilocytosis Moderate; RBC 3.55 m/uL (4.30-5.90); RDW 18.6 % (11.5-15.5); WBC 2.6 k/uL (3.8-10.6)
[2022-07-28 08:11] LABS: HGB 8.2 gm/dL (13.0-17.5)
[2022-07-28] MEDS: SPIRONOLACTONE 25 MG TAB PO SCH (09:20)
[2022-07-28] MEDS: EZETIMIBE 10 MG TAB PO SCH (09:20)
[2022-07-28] MEDS: METOPROLOL TARTRATE 25 MG TAB PO SCH ×2 (09:20→20:14)
[2022-07-28] MEDS: ASCORBIC ACID 500 MG TAB PO SCH (09:21)
[2022-07-28] MEDS: ASPIRIN 81 MG PO SCH (09:21)
[2022-07-28] MEDS: PANTOPRAZOLE 40 MG/10 ML VIAL IVP SCH ×2 (09:21→21:18)
[2022-07-28] MEDS: PREGABALIN 100 MG CAP PO SCH ×3 (09:22→21:18)
[2022-07-28 11:41] LABS: Glucose,Whole Blood 108 mg/dL (70-110)
[2022-07-28] MEDS: FERROUS SULFATE 325 MG TAB PO SCH (12:40)
--- NOTE | 2022-07-28 13:05 | P.PN ---
Subjective Progress Note Date: 07/28/22 Principal diagnosis: Acute non-ST elevation myocardial infarction, triple vessel coronary artery disease, ischemic cardiomyopathy Seeing this patient in new consultation today 07/27/2022 in regard to a presurgical clearance for CABG. This is a 66-year-old white male with past medical history significant for coronary artery disease receiving multiple previous stents (including the RCA, left circumflex, LAD), ischemic cardiomyopathy, hypertension, hyperlipidemia, diabetes mellitus type 2, ex- smoker of over 40 years ago. Patient's chest pain began 4 hours prior to arrival to the emergency room. The chest pain was described as 10 out of 10 on a numerical scale, and radiating down bilateral arms. Patient also had some associated shortness of breath and lightheadedness with this chest pain. Symptoms were consistent with prior events requiring catheterization and sten ting. Patient did take 2 nitroglycerin tabs without improvement in symptoms. ECG on arrival showed normal sinus mechanism with ST depression and T-wave inversion in the anterior leads. Troponins peaked at 11.6. Patient was taken to the [facility] which revealed multi vessel disease with severe stenosis involving the ostium of the LAD and left circumflex, a chronically occluded RCA, collaterals from the left system, and an elevated LVEDP. Patient was transferred to the intensive care unit after his procedure. Nitroglycerin is currently infusing at 10 mcg/m. Patient denies any current chest pain. Patient is currently resting comfortably in bed, on 4 L nasal cannula, in no acute distress. Plan is for possible coronary artery bypass graft revascularization. CBC on arrival showed a WBC count of 2.9, hemoglobin of 7.4, hematocrit 24.8, platelets 86,000. Patient does report some chronic blood loss in his stool that he has never had evaluated. BMP on arrival shows a sodium 138, potassium 5.3, chloride 102, serum CO2 30, BUN 33, creatinine 1.29, glucose 80. Patient does have a suicide sitter at bedside. Nurse reports that the patient had previous suicidal ideation and plan to shoot himself with a gun. Patient denies any suicidal ideation currently to me. Chest x-ray on arrival showed small bilateral pleural effusions with probable atelectasis and prominent pulmonary vascular congestion. Incentive spirometer is at bedside. Patient will have to undergo PFT for presurgical clearance. Vital signs are stable at this time. Reevaluated today on 07/28/2022, patient developed significant amount of confusion last night, he also developed drop in his hemoglobin patient does have chronic history of GI bleeding and surgery was consulted on patient, recommended endoscopy when the patient is medically stable. Hemoglobin went to as low as 6.6, and his baseline is 8.8. Hence the patient received a unit of packed RBCs, cardiothoracic surgery is presently on hold, although the patient seems to be now agreeable to pursue cardiac surgery if recommended. Apparently when he was initially evaluated by thoracic surgery he declined having cardiac surgery at that time. But now the patient changed his mind. Psychiatry evaluated the patient yesterday for delirium and recommended mostly Prolixin every 8 hours for psychosis and to continue Seroquel. Today the patient seems to be more appropriate, not agitated, and not as confused. Patient is on 4 L nasal cannula and O2 sats is 95%. Hemoglobin this morning is 8.2 electrolytes are normal renal profile is normal Objective - Vital Signs Vital signs: Vital Signs Temp 98.1 F 07/28/22 12:00 Pulse 77 07/28/22 12:30 Resp 24 07/28/22 12:30 BP 91/69 07/28/22 12:30 Pulse Ox 99 07/28/22 12:30 FiO2 Intake & Output 07/27/22 07/28/22 07/28/22 18:59 06:59 18:59 Intake Total 895.55 264 Output Total 400 300 550 Balance 495.55 -36 -550 Weight 84.7 kg Intake: IV 380 Invasive Line 1 30 Sodium Chloride 0.9% 1, 350 000 ml @ 50 mls/hr IV . Q20H [facility] Rx#:[id number] Intake, IV Titration 79.55 Amount Nitroglycerin-D5w Pmx 50 79.55 mg In Dextrose/Water 1 250ml.bag @ 10 MCG/MIN 3 mls/hr IV .Q24H [facility] Rx#: [id number] Oral 436 Blood Product 264 Rc Pheresis As3 Unit 264 [id number] Output: Urine 400 300 550 Other: Voiding Method Toilet Urinal Urinal Urinal # Voids 1 0 - Exam Physical Exam: Revealed a 66-year-old white male in no distress Head: Atraumatic, normocephalic. HEENT:[Neck is supple.] [No neck masses.] [No thyromegaly.] [No JVD.] Chest: [Clear throughout, no crackles, no rhonchi, no wheezes.] Cardiac Exam: [Normal S1 and S2, no S3 gallop, no murmur.] Abdomen: [Soft, nontender, no megaly, no rebound, no guarding, normal bowel sounds.] Extremities: [No clubbing, 1+ bipedal edema, no cyanosis.] Neurological Exam: [No focal neurologic deficit.] Patient is alert and oriented 3. - Labs CBC & Chem 7: 07/28/22 07:23 07/28/22 07:23 Labs: Abnormal Lab Results - Last 24 Hours (Table) 07/27/22 07/27/22 07/27/22 Range/Units 05:26 05:26 17:51 WBC (3.8-10.6) k/uL RBC (4.30-5.90) m/uL Hgb (13.0-17.5) gm/dL Hct (39.0-53.0) % MCV (80.0-100.0) fL MCH (25.0-35.0) pg MCHC (31.0-37.0) g/dL RDW (11.5-15.5) % Plt Count (150-450) k/uL Lymphocytes # (Manual) (1.0-4.8) k/uL Nucleated RBCs (0-0) /100 WBC ABG pCO2 (35-45) mmHg ABG pO2 (83-108) mmHg ABG HCO3 (21-25) mmol/L ABG Total CO2 (19-24) mmol/L ABG O2 Saturation (94-97) % Sodium (137-145) mmol/L BUN (9-20) mg/dL POC Glucose (mg/dL) 113 H (70-110) mg/dL Calcium (8.4-10.2) mg/dL Iron 18 L (65-175) ug/dL % Saturation 4.30 L (15.00-50.00) HDL Cholesterol 34.00 L (40.00-60.00) mg/dL Crossmatch 07/27/22 07/27/22 07/28/22 Range/Units 20:49 21:53 00:04 WBC 1.7 L (3.8-10.6) k/uL RBC 2.91 L (4.30-5.90) m/uL Hgb 6.6 L* (13.0-17.5) gm/dL Hct 21.5 L (39.0-53.0) % MCV 73.8 L (80.0-100.0) fL MCH 22.8 L (25.0-35.0) pg MCHC 30.9 L (31.0-37.0) g/dL RDW 18.0 H (11.5-15.5) % Plt Count 59 L (150-450) k/uL Lymphocytes # (Manual) 0.10 L (1.0-4.8) k/uL Nucleated RBCs 1 H (0-0) /100 WBC ABG pCO2 47 H (35-45) mmHg ABG pO2 132 H (83-108) mmHg ABG HCO3 26 H (21-25) mmol/L ABG Total CO2 28 H (19-24) mmol/L ABG O2 Saturation 99.8 H (94-97) % Sodium (137-145) mmol/L BUN (9-20) mg/dL POC Glucose (mg/dL) (70-110) mg/dL Calcium (8.4-10.2) mg/dL Iron (65-175) ug/dL % Saturation (15.00-50.00) HDL Cholesterol (40.00-60.00) mg/dL Crossmatch See Detail 07/28/22 07/28/22 Range/Units 07:23 07:23 WBC 2.6 L (3.8-10.6) k/uL RBC 3.55 L (4.30-5.90) m/uL Hgb 8.2 L D (13.0-17.5) gm/dL Hct 26.5 L (39.0-53.0) % MCV 74.8 L (80.0-100.0) fL MCH 23.2 L (25.0-35.0) pg MCHC (31.0-37.0) g/dL RDW 18.6 H (11.5-15.5) % Plt Count (150-450) k/uL Lymphocytes # (Manual) (1.0-4.8) k/uL Nucleated RBCs (0-0) /100 WBC ABG pCO2 (35-45) mmHg ABG pO2 (83-108) mmHg ABG HCO3 (21-25) mmol/L ABG Total CO2 (19-24) mmol/L ABG O2 Saturation (94-97) % Sodium 136 L (137-145) mmol/L BUN 24 H (9-20) mg/dL POC Glucose (mg/dL) (70-110) mg/dL Calcium 7.8 L (8.4-10.2) mg/dL Iron (65-175) ug/dL % Saturation (15.00-50.00) HDL Cholesterol (40.00-60.00) mg/dL Crossmatch Microbiology - Last 24 Hours (Table) 07/26/22 21:28 Nasal Screen MRSA/MSSA - Final Nasal Swab Assessment and Plan Assessment: Impression: Acute non-ST elevation myocardial infarction Triple-vessel coronary artery disease, previous multiple stents placed. Severe stenosis involving the ostium of the LAD and the left circumflex as well as chronically occluded RCA Ischemic cardiomyopathy Acute blood loss anemia Acute kidney injury Benign essential hypertension Dyslipidemia Ex-smoker Recommendation: Continue to monitor in the ICU Continue to monitor hemoglobin and transfuse accordingly maintaining hemoglobin above 7 GI/general surgery to evaluate his GI blood losses. Continue cardiac meds Continue medications as per psychiatry recommendation Continue GI and DVT prophylaxis Cardiothoracic surgery to evaluate again since the patient change his mind about surgical intervention. We will continue to follow. Prognosis is guarded. Time with Patient: Less than 30
--- NOTE | 2022-07-28 13:16 | P.PN ---
Subjective Progress Note Date: 07/28/22 CHIEF COMPLAINT: Chest pain HISTORY OF PRESENT ILLNESS: Patient is currently in the ICU on nitro drip after being diagnosed with NSTEMI and coronary artery disease. Patient currently is agreeable to CABG. Serial service is following in regards to patient's anemia. Patient has not had a BM since been admitted hospital. Patient's confusion is better today. He does report having blood in her stools at all. He's never had a colonoscopy. He denies any nausea or vomiting. He did require 1 unit of b lood yesterday for hemoglobin of 6.6. Computed tomography scan abdomen and pelvis completed for abdominal pain had shown small left and moderate right pleural effusions with associated compressive atelectasis. Trace ascites otherwise no evidence of acute intra-abdominal process. It did note hyper density within the gallbladder suggest sludge. There is no cholecystitis or biliary dilatation. Afebrile. BP 91/69 WBC 2.6 Hgb 6.6 up to 8.2 platelets from yesterday 59 sodium is 136 potassium 4.4 creatinine 1.0 Patient seen and examined with Dr. Melendrez PHYSICAL EXAM: VITAL SIGNS: Reviewed. GENERAL: Well-developed in no acute distress. HEENT: No sclera icterus. Extraocular movements grossly intact. Moist buccal mucosa. Head is atraumatic, normocephalic. ABDOMEN: Soft. Mildly distended. Mild diffuse tenderness NEUROLOGIC: Alert and oriented. Cranial nerves II through XII grossly intact. ASSESSMENT: 1. Microcytic anemia 2. Reports blood in stools at home 3. Non-ST elevated ND being evaluated for possible CABG 4. Pancytopenia 5. Possible chronic cholecystitis with evidence of gallbladder sludge on CAT scan PLAN: -We will plan for EGD and colonoscopy on if medically stable -Check stool for occult blood -Continue to monitor hemoglobin -Continue to monitor for any signs or symptoms of bleeding -Continue supportive care Physician Label Paster note has been reviewed by physician. Signing provider agrees with the documented findings, assessment, and plan of care. Objective - Vital Signs Vital signs: Vital Signs Temp 97.8 F 07/28/22 08:00 Pulse 67 07/28/22 11:00 Resp 23 07/28/22 11:00 BP 129/96 07/28/22 11:00 Pulse Ox 98 07/28/22 11:00 FiO2 Intake & Output 0407/28/22 07/28/22 18:59 06:59 18:59 Intake Total 895.55 264 Output Total 400 300 225 Balance 495.55 -36 -225 Weight 84.7 kg Intake: IV 380 Invasive Line 1 30 Sodium Chloride 0.9% 1, 350 000 ml @ 50 mls/hr IV . Q20H [facility] Rx#:[id number] Intake, IV Titration 79.55 Amount Nitroglycerin-D5w Pmx 50 79.55 mg In Dextrose/Water 1 250ml.bag @ 10 MCG/MIN 3 mls/hr IV .Q24H [facility] Rx#: [id number] Oral 436 Blood Product 264 Rc Pheresis As3 Unit 264 [id number] Output: Urine 400 300 225 Other: Voiding Method Toilet Urinal Urinal Urinal # Voids 1 0 - Labs CBC & Chem 7: 07/28/22 07:23 07/28/22 07:23 Labs: Abnormal Lab Results - Last 24 Hours (Table) 07/27/22 07/27/22 07/27/22 Range/Units 05:26 05:26 17:51 WBC (3.8-10.6) k/uL RBC (4.30-5.90) m/uL Hgb (13.0-17.5) gm/dL Hct (39.0-53.0) % MCV (80.0-100.0) fL MCH (25.0-35.0) pg MCHC (31.0-37.0) g/dL RDW (11.5-15.5) % Plt Count (150-450) k/uL Lymphocytes # (Manual) (1.0-4.8) k/uL Nucleated RBCs (0-0) /100 WBC ABG pCO2 (35-45) mmHg ABG pO2 (83-108) mmHg ABG HCO3 (21-25) mmol/L ABG Total CO2 (19-24) mmol/L ABG O2 Saturation (94-97) % Sodium (137-145) mmol/L BUN (9-20) mg/dL POC Glucose (mg/dL) 113 H (70-110) mg/dL Calcium (8.4-10.2) mg/dL Iron 18 L (65-175) ug/dL % Saturation 4.30 L (15.00-50.00) HDL Cholesterol 34.00 L (40.00-60.00) mg/dL Crossmatch 07/27/22 07/27/22 07/28/22 Range/Units 20:49 21:53 00:04 WBC 1.7 L (3.8-10.6) k/uL RBC 2.91 L (4.30-5.90) m/uL Hgb 6.6 L* (13.0-17.5) gm/dL Hct 21.5 L (39.0-53.0) % MCV 73.8 L (80.0-100.0) fL MCH 22.8 L (25.0-35.0) pg MCHC 30.9 L (31.0-37.0) g/dL RDW 18.0 H (11.5-15.5) % Plt Count 59 L (150-450) k/uL Lymphocytes # (Manual) 0.10 L (1.0-4.8) k/uL Nucleated RBCs 1 H (0-0) /100 WBC ABG pCO2 47 H (35-45) mmHg ABG pO2 132 H (83-108) mmHg ABG HCO3 26 H (21-25) mmol/L ABG Total CO2 28 H (19-24) mmol/L ABG O2 Saturation 99.8 H (94-97) % Sodium (137-145) mmol/L BUN (9-20) mg/dL POC Glucose (mg/dL) (70-110) mg/dL Calcium (8.4-10.2) mg/dL Iron (65-175) ug/dL % Saturation (15.00-50.00) HDL Cholesterol (40.00-60.00) mg/dL Crossmatch See Detail 07/28/22 07/28/22 Range/Units 07:23 07:23 WBC 2.6 L (3.8-10.6) k/uL RBC 3.55 L (4.30-5.90) m/uL Hgb 8.2 L D (13.0-17.5) gm/dL Hct 26.5 L (39.0-53.0) % MCV 74.8 L (80.0-100.0) fL MCH 23.2 L (25.0-35.0) pg MCHC (31.0-37.0) g/dL RDW 18.6 H (11.5-15.5) % Plt Count (150-450) k/uL Lymphocytes # (Manual) (1.0-4.8) k/uL Nucleated RBCs (0-0) /100 WBC ABG pCO2 (35-45) mmHg ABG pO2 (83-108) mmHg ABG HCO3 (21-25) mmol/L ABG Total CO2 (19-24) mmol/L ABG O2 Saturation (94-97) % Sodium 136 L (137-145) mmol/L BUN 24 H (9-20) mg/dL POC Glucose (mg/dL) (70-110) mg/dL Calcium 7.8 L (8.4-10.2) mg/dL Iron (65-175) ug/dL % Saturation (15.00-50.00) HDL Cholesterol (40.00-60.00) mg/dL Crossmatch Microbiology - Last 24 Hours (Table) 07/26/22 21:28 Nasal Screen MRSA/MSSA - Final Nasal Swab
--- NOTE | 2022-07-28 13:21 | PN ---
PROGRESS NOTE DATE OF SERVICE: 07/28/2022 SUBJECTIVE: This is a 66-year-old gentleman who was admitted with possible acute cei-KZ-ilgpxco- elevation myocardial infarction, also had some suicidal ideation also. Today the sensorium appears slightly better. The patient is apparently willing for CABG at this time and Cardiothoracic surgery is also evaluating the patient. Psychiatrist is also on consult and the CAT scan did not show any acute abnormality. PAST MEDICAL HISTORY: Reviewed. REVIEW OF SYSTEMS: A 14-point review is negative except as mentioned earlier. CURRENT MEDICATIONS: Reviewed include Lipitor, doses and rest of medication noted. PHYSICAL EXAMINATION: VITAL SIGNS: Pulse is 107, blood pressure 95/75, respirations 22. HEENT: Conjunctivae normal. NECK: No jugular venous distention. CARDIOVASCULAR: S1, S2. RESPIRATIONS: Diminished at the bases. ABDOMEN: Soft, nontender. LEGS: No edema, no swelling. NERVOUS SYSTEM: No focal deficits. LABORATORY DATA: Hemoglobin 8.2, rest of the labs are noted, pancytopenia present. ASSESSMENT: 1. Chest pain, possible acute ozt-IB-cthyuhg-elevation myocardial infarction with troponin 18.4. 2. Suicidal ideations and possibly masked depression. 3. Anemia with pancytopenia. 4. History of coronary artery disease. 5. Diabetes mellitus type 2. 6. History of noncompliance. RECOMMENDATIONS: 1. Recommended to continue current management, continue symptomatic treatment, otherwise continue with antiplatelet agents currently. I will recommend stool guaiac and hematology oncology evaluation also. 2. The patient had significant history of noncompliance. The prognosis is extremely guarded because of multiple complex medical issues. Further recommendations to follow. MMODL / IJN: [id number] /
[2022-07-28 13:25] LABS: Lymphocytes # (M) 0.26 k/uL (1.0-4.8); Monocytes # (M) 0.23 k/uL (0-1.0); Neutrophils # (M) 2.11 k/uL (1.3-7.7); Neutrophils % (M) 81 %; Nucleated Red Blood Cells 0 /100 WBC (0-0); Total Cells Counted 100
[2022-07-28] MEDS ORDERED: FUROSEMIDE 10 MG/ML 4 ML VIAL IV STA (14:02)
--- NOTE | 2022-07-28 14:24 | P.CNNES ---
History of Present Illness Consult date: 07/28/22 Requesting physician: Julio César Jiménez Reason for Consult: Altered mental status History of Present Illness: Patient is a 66-year-old male who came to the hospital on Wednesday morning 07/26/2022 shortly after midnight for chest pain. Patient was diagnosed with non-STEMI. He underwent cardiac catheterization, which revealed 100% occlusion of the RCA, and significant stenosis of the left main coronary artery. Patient apparently has been having bloody stools prior to coming to the hospital. He had developed anemia for which he underwent one unit packed RBC. Patient is scheduled for EGD and colonoscopy on , 07/30/2022. Patient has developed fluctuating mental status for which neurology was consulted. Per nursing report, yesterday patient was very confused, delirious, was suicidal. However today he is much improved. He is awake and oriented 3, although still with fluctuating mental status. Patient at present denies any numbness or tingling, nausea or vomiting. He complains of being weak all over denies any focal weakness. No visual symptoms. He admits to having bifrontal headache rating 5/10. Patient's CBC on arrival with WBC 3.4 hemoglobin 8.8, hematocrit 29.5 and platelets 80. Yesterday his CBC showed WBC was 1.7, hemoglobin 6.6 and platelets 59. Patient has received 1 unit of packed RBC, and his hemoglobin is 8.2 at this point. Patient's ABG with pH 7.35, pCO2 47, pO2 132 and saturation 99.8%. Hemoglobin A1c 7.7. His renal functions are normal. Patient had an episode of hypoglycemia last night, with blood sugar dropped down to 47 at 5:26 AM. Patient had a computed tomography scan performed earlier this morning, which was normal. I personally reviewed CT head, agree with the findings. CT of the chest revealed moderate right, small left pleural effusion, trace ascit es. Review of Systems Constitutional: Denies chills, Denies fever Eyes: denies blurred vision, denies pain Ears: deny: decreased hearing, ear discharge Ears, nose, mouth and throat: Reports headache, Denies sore throat, Denies vertigo Cardiovascular: Reports shortness of breath, Denies chest pain Respiratory: Reports congestion, Reports cough, Reports cough with sputum Gastrointestinal: Denies abdominal pain, Denies diarrhea, Denies nausea, Denies vomiting Genitourinary: Denies flank pain, Denies hematuria, Denies urinary retention Musculoskeletal: Reports muscle weakness, Denies myalgias Integumentary: Denies pruritus, Denies rash Neurological: Reports as per HPI, Reports change in mentation Psychiatric: Reports difficulty concentrating, Denies anxiety, Denies depression Endocrine: Reports fatigue, Denies weight change Past Medical History Past Medical History: Coronary Artery Disease (CAD), Chest Pain / Angina, Diabetes Mellitus, GI Bleed (Patient states occasional blood in his stool), Hyperlipidemia, Hypertension, Myocardial Infarction (non Q-wave) Additional Past Medical History / Comment(s): IDDM type II, L knee pain due to tendon problem, bilateral foot pain. History of Any Multi-Drug Resistant Organisms: None Reported Past Surgical History: Heart Catheterization With Stent Additional Past Surgical History / Comment(s): 02/11/16 cath with stent to cx. Other surgical hx: 09/14/14 HEART CATH with stent to RCA (TRIPLE VESSEL DISEASE FOUND). Past Anesthesia/Blood Transfusion Reactions: No Reported Reaction Additional Past Anesthesia/Blood Transfusion Reaction / Comment(s): NO PAST SURGURIES Date of Last Stent Placement:: 2015 Additional Psychological History / Comment(s): Patient has had recent suicidal ideation Smoking Status: Former smoker (With smoking over 40 years ago) Past Alcohol Use History: None Reported Past Drug Use History: None Reported - Past Family History Brother(s) Additional Family Medical History / Comment(s): Pt had one brother who had a CVA at the age of 68yrs and another brother who had a AR at the age of 61yrs. Father History Unknown: Yes Additional Family Medical History / Comment(s): Patient reports that his dad more than likely from EtOH abuse Mother History Unknown: Yes Family Medical History: Cancer (Unknown type of cancer) Medications and Allergies Home Medications Medication Instructions Recorded Confirmed Type Pregabalin [Lyrica] 200 mg PO TID 09/14/14 07/26/22 History Aspirin 325 mg PO DAILY tab 09/15/14 07/26/22 Rx Prasugrel [Effient] 10 mg PO DAILY #30 tab 09/15/14 07/26/22 Rx lisinopriL [Zestril] 2.5 mg PO DAILY #30 tab 09/15/14 07/26/22 Rx Metoprolol Tartrate 12.5 mg PO BID 06/28/18 07/26/22 History Insulin Degludec [Tresiba 40 units SQ DAILY 06/16/22 07/26/22 History Flextouch U-100 Pen] Atorvastatin [Lipitor] 80 mg PO HS #90 tab 06/18/22 07/26/22 Rx Nitroglycerin Sl Tabs [Nitrostat] 0.4 mg SUBLINGUAL Q5M PRN #50 tab 06/18/22 07/26/22 Rx Allergies Allergy/AdvReac Type Severity Reaction Status Date / Time No Known Allergies Allergy Verified 07/26/22 11:34 Physical Examination - Vital Signs Vital Signs: Vital Signs Temp Pulse Resp BP Pulse Ox 07/28/22 13:30 81 47 H 105/67 07/28/22 13:00 86 24 91/69 97 07/28/22 12:30 77 24 91/69 99 07/28/22 12:00 98.1 F 78 18 102/69 99 07/28/22 11:30 66 25 H 84/56 99 07/28/22 11:00 67 23 129/96 98 07/28/22 10:30 80 21 97 07/28/22 10:00 107 H 22 95/74 93 L 07/28/22 09:30 99 21 97 07/28/22 09:00 99 23 133/85 97 07/28/22 08:30 116 H 20 98 07/28/22 08:00 97.8 F 82 22 103/62 98 07/28/22 07:30 92 22 07/28/22 07:00 105 H 17 122/75 97 07/28/22 06:30 95 22 122/74 98 07/28/22 06:00 94 21 137/96 98 07/28/22 05:42 99.0 F 93 21 137/96 99 07/28/22 05:30 87 19 98/63 99 07/28/22 05:00 86 25 H 88/52 98 07/28/22 04:30 93 9 L 98/61 99 07/28/22 04:00 98.8 F 87 25 H 111/66 98 07/28/22 03:48 98.8 F 87 22 105/67 99 07/28/22 03:47 98.8 F 87 21 107/68 99 07/28/22 03:30 88 31 H 93/64 99 07/28/22 03:28 98.8 F 87 20 108/64 99 07/28/22 03:19 98.6 F 87 18 93/64 99 07/28/22 03:00 78 23 96/60 99 07/28/22 02:30 83 26 H 87/52 98 07/28/22 02:00 89 31 H 102/65 99 07/28/22 01:30 87 21 116/78 98 07/28/22 01:00 88 26 H 116/78 99 07/28/22 00:08 80 27 H 99 07/28/22 00:00 99.4 F 82 25 H 108/64 99 07/27/22 23:30 82 26 H 105/63 07/27/22 23:00 82 19 115/70 07/27/22 22:30 83 28 H 109/67 94 L 07/27/22 22:00 76 24 103/66 07/27/22 21:30 82 26 H 110/72 07/27/22 21:00 82 25 H 110/72 98 07/27/22 20:00 98.6 F 83 22 117/69 07/27/22 19:00 70 24 113/69 99 07/27/22 18:00 66 27 H 95/60 100 07/27/22 17:00 78 17 100/70 100 07/27/22 16:00 98.6 F 70 25 H 104/74 100 07/27/22 15:00 77 19 92/58 98 07/27/22 14:00 68 27 H 91/50 Intake and Output 07/27/22 07/28/22 07/28/22 22:59 06:59 14:59 Intake Total 239.55 264 Output Total 150 300 550 Balance 89.55 -36 -550 Intake: IV 160 Invasive Line 1 10 Sodium Chloride 0.9% 1, 150 000 ml @ 50 mls/hr IV . Q20H JESSY Rx#:[id number] Intake, IV Titration 79.55 Amount Nitroglycerin-D5w Pmx 50 79.55 mg In Dextrose/Water 1 250ml.bag @ 10 MCG/MIN 3 mls/hr IV .Q24H JESSY Rx#: [id number] Blood Product 264 Rc Pheresis As3 Unit 264 [id number] Output: Urine 150 300 550 Other: Voiding Method Toilet Urinal Urinal Urinal # Voids 1 0 Weight 84.7 kg Patient is an elderly male, who appears in no obvious respiratory distress. He is slightly congested. Patient is slightly groggy, lethargic, encephalopathic. He does wake up and answers appropriately. Patient states it is 06/05/2022, but then said it was June. He knows that he is in [facility] in [place]. He knows name of the current president. Speech and language functions are normal. Patient can name and repeat very well. No aphasia or dysarthria. Attention, concentration and fund of knowledge is limited. On cranial nerve examination, pupils are equal, round and reacting to light, visual nelson are full on confrontation, with no neglect on double simultaneous stimulation. Extraocular muscles are intact with no nystagmus. Face is symmetric, tongue protrudes to the midline. Palatal elevation and sensation normal, hearing and shoulder shrug normal, facial sensation normal. On muscle strength testing, there is no pronator drift and the strength is normal in arms and legs distally and proximally. Deep tendon reflexes are symmetric biceps 1, brachioradialis trace, knees 1, ankles 0 and plantars are downgoing bilaterally. Sensory to touch is equal with no neglect on double simultaneous stimulation. Cerebellar function showed no ataxia for [id number] testing. Tone and bulk of muscles normal. Patient has intermittent myoclonic jerks of outstretched hands. Gait deferred.. On general examination, there is no carotid bruit or murmur, S1-S2 audible. Chest is clear on consultation. Abdomen is soft nontender. No organomegaly, bowel sounds present. Peripheral pulses are present. Mild pitting peripheral edema. Results - Laboratory Findings CBC and BMP: 07/28/22 07:23 07/28/22 07:23 Abnormal Lab Findings: Abnormal Labs 07/26/22 07/26/22 07/26/22 00:28 00:28 00:28 WBC 3.4 L RBC 4.00 L Hgb 8.8 L Hct 29.5 L MCV 73.6 L MCH 22.1 L MCHC 30.0 L RDW 18.0 H Plt Count 80 L Lymphocytes # (Manual) 0.37 L Nucleated RBCs INR APTT ABG pCO2 ABG pO2 ABG HCO3 ABG Total CO2 ABG O2 Saturation Sodium Potassium BUN 24 H Creatinine 1.31 H Glucose 199 H POC Glucose (mg/dL) Hemoglobin A1c Calcium Iron % Saturation AST Troponin I 0.066 H* Albumin HDL Cholesterol Urine Protein Urine Mucus Crossmatch 07/26/22 07/26/22 07/26/22 07:39 07:39 09:53 WBC RBC Hgb Hct MCV MCH MCHC RDW Plt Count Lymphocytes # (Manual) Nucleated RBCs INR APTT 59.0 H ABG pCO2 ABG pO2 ABG HCO3 ABG Total CO2 ABG O2 Saturation Sodium Potassium BUN Creatinine Glucose POC Glucose (mg/dL) Hemoglobin A1c 7.7 H Calcium Iron % Saturation AST Troponin I 6.390 H* Albumin HDL Cholesterol Urine Protein Urine Mucus Crossmatch 07/26/22 07/26/22 07/26/22 09:53 09:53 13:17 WBC RBC Hgb Hct MCV MCH MCHC RDW Plt Count Lymphocytes # (Manual) Nucleated RBCs INR APTT ABG pCO2 ABG pO2 ABG HCO3 ABG Total CO2 ABG O2 Saturation Sodium Potassium 5.5 H BUN 28 H Creatinine 1.27 H Glucose 153 H POC Glucose (mg/dL) 113 H Hemoglobin A1c Calcium 8.3 L Iron % Saturation AST Troponin I 11.600 H* Albumin 3.4 L HDL Cholesterol Urine Protein Urine Mucus Crossmatch 07/26/22 07/26/22 07/26/22 13:35 13:35 16:50 WBC 2.9 L RBC 3.34 L Hgb 7.4 L Hct 24.8 L MCV 74.2 L MCH 22.1 L MCHC 29.8 L RDW 18.2 H Plt Count 86 L Lymphocytes # (Manual) 0.32 L Nucleated RBCs INR 1.2 H APTT 38.5 H ABG pCO2 ABG pO2 ABG HCO3 ABG Total CO2 ABG O2 Saturation Sodium Potassium 5.3 H BUN 33 H Creatinine 1.29 H Glucose POC Glucose (mg/dL) Hemoglobin A1c Calcium Iron % Saturation AST Troponin I Albumin HDL Cholesterol Urine Protein Urine Mucus Crossmatch 07/26/22 07/27/22 07/27/22 21:30 05:26 05:26 WBC 2.2 L RBC 3.31 L Hgb 7.2 L Hct 24.6 L MCV 74.3 L MCH 21.9 L MCHC 29.4 L RDW 18.1 H Plt Count 77 L Lymphocytes # (Manual) 0.51 L Nucleated RBCs INR APTT ABG pCO2 ABG pO2 ABG HCO3 ABG Total CO2 ABG O2 Saturation Sodium Potassium BUN 32 H Creatinine Glucose 47 L* POC Glucose (mg/dL) Hemoglobin A1c Calcium 8.3 L Iron % Saturation AST 116 H Troponin I Albumin 3.4 L HDL Cholesterol 34.00 L Urine Protein 1+ H Urine Mucus Rare H Crossmatch 07/27/22 07/27/22 07/27/22 05:26 05:26 07:24 WBC RBC Hgb Hct MCV MCH MCHC RDW Plt Count Lymphocytes # (Manual) Nucleated RBCs INR APTT ABG pCO2 ABG pO2 ABG HCO3 ABG Total CO2 ABG O2 Saturation Sodium Potassium BUN Creatinine Glucose POC Glucose (mg/dL) 59 L Hemoglobin A1c Calcium Iron 18 L % Saturation 4.30 L AST Troponin I 18.400 H* Albumin HDL Cholesterol Urine Protein Urine Mucus Crossmatch 07/27/22 07/27/22 07/27/22 07:39 17:51 20:49 WBC RBC Hgb Hct MCV MCH MCHC RDW Plt Count Lymphocytes # (Manual) Nucleated RBCs INR APTT ABG pCO2 47 H ABG pO2 132 H ABG HCO3 26 H ABG Total CO2 28 H ABG O2 Saturation 99.8 H Sodium Potassium BUN Creatinine Glucose POC Glucose (mg/dL) 60 L 113 H Hemoglobin A1c Calcium Iron % Saturation AST Troponin I Albumin HDL Cholesterol Urine Protein Urine Mucus Crossmatch 07/27/22 07/28/22 07/28/22 21:53 00:04 07:23 WBC 1.7 L 2.6 L RBC 2.91 L 3.55 L Hgb 6.6 L* 8.2 L D Hct 21.5 L 26.5 L MCV 73.8 L 74.8 L MCH 22.8 L 23.2 L MCHC 30.9 L RDW 18.0 H 18.6 H Plt Count 59 L 70 L Lymphocytes # (Manual) 0.10 L 0.26 L Nucleated RBCs 1 H INR APTT ABG pCO2 ABG pO2 ABG HCO3 ABG Total CO2 ABG O2 Saturation Sodium Potassium BUN Creatinine Glucose POC Glucose (mg/dL) Hemoglobin A1c Calcium Iron % Saturation AST Troponin I Albumin HDL Cholesterol Urine Protein Urine Mucus Crossmatch See Detail 07/28/22 07:23 WBC RBC Hgb Hct MCV MCH MCHC RDW Plt Count Lymphocytes # (Manual) Nucleated RBCs INR APTT ABG pCO2 ABG pO2 ABG HCO3 ABG Total CO2 ABG O2 Saturation Sodium 136 L Potassium BUN 24 H Creatinine Glucose POC Glucose (mg/dL) Hemoglobin A1c Calcium 7.8 L Iron % Saturation AST Troponin I Albumin HDL Cholesterol Urine Protein Urine Mucus Crossmatch Assessment and Plan Assessment: * Altered mental status, likely due to acute delirium, with component of metabolic encephalopathy. Reasons multifactorial as mentioned below. * Acute non-STEMI * Pancytopenia, anemia status post transfusion * Hypercapnia * Acute GI bleed * Recent episode of hypoglycemia with blood sugar 47 at 5:26 AM today. * Coronary artery disease * Bilateral pleural effusion, moderate right, small left side. * Hypertension * Hyperlipidemia * Diabetes * X tobacco use Plan: * Patient's mentation has improved. His examination is nonfocal although has myoclonic jerks, fluctuating mental status consistent with metabolic encephalopathy. CT head showed no acute process. * Patient is undergoing EGD and colonoscopy on 07/30/2022. * Treatment of various medical conditions as per IM and other specialties. * Neurology will follow clinically. Thank you for the consult.
--- NOTE | 2022-07-28 14:46 | P.PN ---
Subjective Patient is seen in follow-up for acute kidney injury. Renal function improved. Nonoliguric. Mentation not significantly improved. Now agreeable to proceed with CABG. Hemoglobin improved post blood transfusion. Vital signs are stable. General: Resting in bed. Not answering verbal questions. HEENT: Head exam is unremarkable. On nasal cannula. LUNGS: No audible rhonchi or wheezes. HEART: Rate and Rhythm are regular. ABDOMEN: No distention. EXTREMITITES: No edema. Objective - Vital Signs Vital signs: Vital Signs Temp 98.1 F 07/28/22 12:00 Pulse 81 07/28/22 13:30 Resp 47 H 07/28/22 13:30 BP 105/67 07/28/22 13:30 Pulse Ox 97 07/28/22 13:00 FiO2 Intake & Output 07/27/22 07/28/22 07/28/22 18:59 06:59 18:59 Intake Total 895.55 264 Output Total 400 300 550 Balance 495.55 -36 -550 Weight 84.7 kg Intake: IV 380 Invasive Line 1 30 Sodium Chloride 0.9% 1, 350 000 ml @ 50 mls/hr IV . Q20H JESSY Rx#:[id number] Intake, IV Titration 79.55 Amount Nitroglycerin-D5w Pmx 50 79.55 mg In Dextrose/Water 1 250ml.bag @ 10 MCG/MIN 3 mls/hr IV .Q24H JESSY Rx#: [id number] Oral 436 Blood Product 264 Rc Pheresis As3 Unit 264 [id number] Output: Urine 400 300 550 Other: Voiding Method Toilet Urinal Urinal Urinal # Voids 1 0 - Labs CBC & Chem 7: 07/28/22 07:23 07/28/22 07:23 Labs: Abnormal Lab Results - Last 24 Hours (Table) 07/27/22 07/27/22 07/27/22 Range/Units 05:26 05:26 17:51 WBC (3.8-10.6) k/uL RBC (4.30-5.90) m/uL Hgb (13.0-17.5) gm/dL Hct (39.0-53.0) % MCV (80.0-100.0) fL MCH (25.0-35.0) pg MCHC (31.0-37.0) g/dL RDW (11.5-15.5) % Plt Count (150-450) k/uL Lymphocytes # (Manual) (1.0-4.8) k/uL Nucleated RBCs (0-0) /100 WBC ABG pCO2 (35-45) mmHg ABG pO2 (83-108) mmHg ABG HCO3 (21-25) mmol/L ABG Total CO2 (19-24) mmol/L ABG O2 Saturation (94-97) % Sodium (137-145) mmol/L BUN (9-20) mg/dL POC Glucose (mg/dL) 113 H (70-110) mg/dL Calcium (8.4-10.2) mg/dL Iron 18 L (65-175) ug/dL % Saturation 4.30 L (15.00-50.00) HDL Cholesterol 34.00 L (40.00-60.00) mg/dL Crossmatch 07/27/22 07/27/22 07/28/22 Range/Units 20:49 21:53 00:04 WBC 1.7 L (3.8-10.6) k/uL RBC 2.91 L (4.30-5.90) m/uL Hgb 6.6 L* (13.0-17.5) gm/dL Hct 21.5 L (39.0-53.0) % MCV 73.8 L (80.0-100.0) fL MCH 22.8 L (25.0-35.0) pg MCHC 30.9 L (31.0-37.0) g/dL RDW 18.0 H (11.5-15.5) % Plt Count 59 L (150-450) k/uL Lymphocytes # (Manual) 0.10 L (1.0-4.8) k/uL Nucleated RBCs 1 H (0-0) /100 WBC ABG pCO2 47 H (35-45) mmHg ABG pO2 132 H (83-108) mmHg ABG HCO3 26 H (21-25) mmol/L ABG Total CO2 28 H (19-24) mmol/L ABG O2 Saturation 99.8 H (94-97) % Sodium (137-145) mmol/L BUN (9-20) mg/dL POC Glucose (mg/dL) (70-110) mg/dL Calcium (8.4-10.2) mg/dL Iron (65-175) ug/dL % Saturation (15.00-50.00) HDL Cholesterol (40.00-60.00) mg/dL Crossmatch See Detail 07/28/22 07/28/22 Range/Units 07:23 07:23 WBC 2.6 L (3.8-10.6) k/uL RBC 3.55 L (4.30-5.90) m/uL Hgb 8.2 L D (13.0-17.5) gm/dL Hct 26.5 L (39.0-53.0) % MCV 74.8 L (80.0-100.0) fL MCH 23.2 L (25.0-35.0) pg MCHC (31.0-37.0) g/dL RDW 18.6 H (11.5-15.5) % Plt Count 70 L (150-450) k/uL Lymphocytes # (Manual) 0.26 L (1.0-4.8) k/uL Nucleated RBCs (0-0) /100 WBC ABG pCO2 (35-45) mmHg ABG pO2 (83-108) mmHg ABG HCO3 (21-25) mmol/L ABG Total CO2 (19-24) mmol/L ABG O2 Saturation (94-97) % Sodium 136 L (137-145) mmol/L BUN 24 H (9-20) mg/dL POC Glucose (mg/dL) (70-110) mg/dL Calcium 7.8 L (8.4-10.2) mg/dL Iron (65-175) ug/dL % Saturation (15.00-50.00) HDL Cholesterol (40.00-60.00) mg/dL Crossmatch Microbiology - Last 24 Hours (Table) 07/26/22 21:28 Nasal Screen MRSA/MSSA - Final Nasal Swab Assessment and Plan Plan: Assessment: 1. Acute kidney injury secondary to hemodynamic ATN. Also received IV contrast on 07/26/2021 for cardiac catheterization and again July [address] abdomen.. Creatinine was 1.3 on admission and is 1.0 today. Baseline creatinine near 1. 1+ protein on UA. No hydronephrosis noted on CAT scan. 2. Coronary artery disease status post cardiac catheterization on 07/26/2022 with multivessel disease. 3. Anemia. Status post blood transfusion. Improved. Iron deficiency noted. 4. Diabetes mellitus. 5. Hyperkalemia secondary to acute kidney injury and lisinopril. Improved. 6. Cardiomyopathy. Ejection fraction 35%. 7. Volume overload. Pleural effusions noted on imaging. Plan: Lasix 40 mg IV once today. Add IV iron. Avoid nephrotoxins. Continue to monitor renal function and urine output. Monitor for contrast- induced acute kidney injury.
[2022-07-28] MEDS: SODIUM FERRIC GLUCONAT-SUCROSE 125 MG in SODIUM CHLORIDE 0.9% 100 ML IVPB SCH (16:03)
[2022-07-28 16:39] LABS: Glucose,Whole Blood 215 mg/dL (70-110)
[2022-07-28 20:09] LABS: Glucose,Whole Blood 108 mg/dL (70-110)
[2022-07-28] MEDS: INSULIN DETEMIR (LEVEMIR) 100 UNIT/ML SYR SQ SCH (20:16)
[2022-07-28] MEDS: QUEtiapine 25 MG TAB PO SCH (21:18)
[2022-07-28] MEDS: ATORVASTATIN 80 MG TAB PO SCH (21:18)
--- NOTE | 2022-07-28 22:11 | PN ---
PROGRESS NOTE SUBJECTIVE: This 66-year-old gentleman was admitted to hospital with acute wek-OI-hbhjufu elevation CT and has had GI bleed with a hemoglobin of 6.6 yesterday requiring blood transfusion. He is to undergo endoscopic evaluation by surgeon, has been evaluated by cardiothoracic surgery. Today, the patient seems more agreeable to undergoing bypass surgery. He is less confused. OBJECTIVE: GENERAL: Afebrile. VITAL SIGNS: Stable. CHEST: Reveals good air entry bilaterally. HEART: Reveals first and second heart sounds, no gallop. EXTREMITIES: Did not reveal any edema. Peripheral pulses are felt. MEDICATIONS: The patient is on, 1. Aspirin. 2. Lipitor. 3. Zetia. 4. Insulin. 5. Lopressor 25 b.i.d. 6. Nitro paste 1 inch t.i.d. LABORATORY DATA: Shows that the creatinine is 1, BUN is 24, limited echocardiogram revealed an ejection fraction of 40%. ASSESSMENT: Acute zre-EI-uajwmts elevation myocardial infarction, ischemic cardiomyopathy, confusion. PLAN: The patient is more agreeable for a bypass surgery at this time. Surgery has evaluated and is following the patient. Will continue with current medical therapy. MMODL / IJN: [id number] /
[2022-07-29] MEDS: NITROGLYCERIN OINT 1 INCH/GM PACKET TOPICAL SCH ×3 (00:13→16:33)
[2022-07-29 05:56] LABS: Glucose,Whole Blood 76 mg/dL (70-110)
[2022-07-29] MEDS: INSULIN ASPART (NovoLOG) 100 UNIT/ML VIAL SQ SCH ×4 (06:19→20:24)
--- NOTE | 2022-07-29 08:20 | P.PN ---
Subjective Progress Note Date: 07/29/22 Principal diagnosis: Chest pain with severe coronary disease most likely requiring CABG and altered mental status also. The patient seems much more lucid today even with sitters evaluation. 2 days ago, he had significant altered mental status delirium. Appreciate multiple consultants input. GI bleed is noted and he will have EGD/colonoscopy via surgery had no fever or chills. No nausea, vomiting or diarrhea at this point. He does state hunger but no overt pain Objective - Vital Signs Vital signs: Vital Signs Temp 98.7 F 07/29/22 04:00 Pulse 90 07/29/22 04:00 Resp 18 07/29/22 04:00 BP 106/65 07/29/22 04:00 Pulse Ox 93 L 07/29/22 04:00 FiO2 Intake & Output 07/28/22 07/29/22 07/29/22 18:59 06:59 18:59 Output Total 1500 Balance -1500 Output: Urine 1500 Other: Voiding Method Urinal Urinal # Voids 0 - Constitutional General appearance: Present: average body habitus, cooperative, no acute distress - EENT Eyes: Absent: abnormal pupil - Neck Neck: Absent: lymphadenopathy - Respiratory Respiratory: bilateral: CTA - Cardiovascular Rhythm: regular Heart sounds: normal: S1, S2 Abnormal Heart Sounds: Absent: S3 Gallop - Gastrointestinal General gastrointestinal: Present: soft. Absent: tenderness - Integumentary Integumentary: Absent: cellulitis - Psychiatric Psychiatric: Present: appropriate affect, intact judgment & insight - Labs CBC & Chem 7: 07/28/22 07:23 07/28/22 07:23 Labs: Abnormal Lab Results - Last 24 Hours (Table) 07/28/22 07/28/22 07/28/22 Range/Units 07: 07:23 16:38 Plt Count 70 L (150-450) k/uL Lymphocytes # (Manual) 0.26 L (1.0-4.8) k/uL Sodium 136 L (137-145) mmol/L BUN 24 H (9-20) mg/dL POC Glucose (mg/dL) 215 H (70-110) mg/dL Calcium 7.8 L (8.4-10.2) mg/dL Microbiology - Last 24 Hours (Table) 07/26/22 21:28 Nasal Screen MRSA/MSSA - Final Nasal Swab Assessment and Plan (1) Delirium Current Visit: Yes Status: Acute Code(s): R41.0 - DISORIENTATION, UNSPECIFIED SNOMED Code(s): 8982251 (2) Acute kidney injury Current Visit: Yes Status: Acute Code(s): N17.9 - ACUTE KIDNEY FAILURE, UNSPECIFIED SNOMED Code(s): 49000502 (3) Chest pain Current Visit: Yes Status: Acute Code(s): R07.9 - CHEST PAIN, UNSPECIFIED SNOMED Code(s): 58913185 (4) NSTEMI (non-ST elevated myocardial infarction) Current Visit: Yes Status: Acute Code(s): I21.4 - NON-ST ELEVATION (NSTEMI) MYOCARDIAL INFARCTION SNOMED Code(s): 99910760 (5) Acute coronary syndrome with high troponin Current Visit: No Status: Acute Code(s): I24.9 - ACUTE ISCHEMIC HEART DISEASE, UNSPECIFIED SNOMED Code(s): 784241807 (6) Diabetes Current Visit: No Status: Acute Code(s): E11.9 - TYPE 2 DIABETES MELLITUS WITHOUT COMPLICATIONS SNOMED Code(s): 80163856 (7) Hypertension Current Visit: No Status: Acute Code(s): I10 - ESSENTIAL (PRIMARY) HYPERTENSION SNOMED Code(s): 72355114 (8) GI bleed Current Visit: Yes Status: Acute Code(s): K92.2 - GASTROINTESTINAL HEMORRHAGE, UNSPECIFIED SNOMED Code(s): 70276826 Plan: Continue to follow. Check CBC and CMP in a.m. and EGD and colonoscopy pending. The patient is agreeable now to her bypass graft. Delirium is improved Again, appreciate multiple consultants input
--- NOTE | 2022-07-29 09:24 | P.PN ---
Subjective Progress Note Date: 07/29/22 Principal diagnosis: Multivessel coronary artery disease, acute non-ST elevated myocardial infarction this admission, pancytopenia, acute GIB, JACOB, metabolic encephalopathy possible acute delirium. History of coronary artery disease with previous multiple PCI, ischemic cardiomyopathy with EF 30-35%, hypertension, hyperlipidemia, insulin- dependent diabetes mellitus, depression with suicidal ideation, previous tobacco dependence The patient was seen and examined this morning sitting up in bed on the cardiac stepdown unit with Dr. Hassan, product safety and standards engineer at the bedside. Denies any chest pain or shortness of breath currently. Scheduled for EGD/colonoscopy/barium swallow today. Consultation was placed to hematology for pancytopenia, appreciate recommendations. The patient would benefit from surgery, however he needs to recover from his acute illnesses first to improve his outcomes. At this time he is agreeable to surgery. Objective - Vital Signs Vital signs: Vital Signs Temp 98.5 F 07/29/22 08:00 Pulse 93 07/29/22 08:00 Resp 18 07/29/22 08:00 BP 91/58 07/29/22 08:00 Pulse Ox 93 L 07/29/22 08:00 FiO2 Intake & Output 07/28/22 07/29/22 07/29/22 18:59 06:59 18:59 Output Total 1500 Balance -1500 Output: Urine 1500 Other: Voiding Method Urinal Urinal # Voids 0 - Exam CONSTITUTIONAL: Appears comfortable, cooperative, no acute distress RESPIRATORY: Lungs sounds diminished bilaterally. Respirations even, nonlabored. Currently on 3 L nasal cannula with oxygen saturation 95%. Able to achieve 1000 mL on incentive spirometry CARDIOVASCULAR: S1, S2 present. Regular rate and rhythm, sinus rhythm on telemetry. Sternum stable. Palpable peripheral pulses bilaterally. No edema present. No calf pain or tenderness noted. GASTROINTESTINAL: Abdomen soft, nontender, nondistended. Active bowel sounds present 4 quadrants. Currently NPO GENITOURINARY: Continues to void INTEGUMENTARY: Skin is warm and dry NEUROLOGIC: Cranial nerves II through XII intact MUSKULOSKELETAL: Able to move all extremities, strength equal bilaterally, gait normal PSYCHIATRIC: Alert and oriented to person place and time, flat affect - Allied health notes Allied health notes reviewed: nursing - Labs CBC & Chem 7: 07/28/22 07:23 07/28/22 07:23 Labs: Abnormal Lab Results - Last 24 Hours (Table) 07/28/22 07/28/22 Range/Units 07:23 16:38 Plt Count 70 L (150-450) k/uL Lymphocytes # (Manual) 0.26 L (1.0-4.8) k/uL POC Glucose (mg/dL) 215 H (70-110) mg/dL Microbiology - Last 24 Hours (Table) 07/26/22 21:28 Nasal Screen MRSA/MSSA - Final Nasal Swab Assessment and Plan Assessment: Multivessel coronary artery disease Acute non-ST elevated myocardial infarction this admission Pancytopenia Acute GIB, status post blood transfusion JACOB, resolving Metabolic encephalopathy possible acute delirium, resolving History of coronary artery disease with previous multiple PCI Ischemic cardiomyopathy with EF 30-35% Hypertension Hyperlipidemia Insulin-dependent diabetes mellitus, hemoglobin A1c 7.7% Depression with suicidal ideation Previous tobacco dependence Plan: Seen and examined with Dr. Hassan Recommend resolution of acute illness, follow-up outpatient to plan for surgery Continue aspirin, statin, beta dane, Aldactone Wean O2 as tolerated, encourage incentive spirometry use Increase activity as tolerated Appreciate hematology recommendations Will get preoperative workup completed while patient is inpatient Medical management of other comorbidities per internal medicine as well as multiple consultants Will monitor while hospitalized, review preoperative workup, review recommendations of multiple consultants
[2022-07-29] MEDS: EZETIMIBE 10 MG TAB PO SCH (09:44)
[2022-07-29] MEDS: SPIRONOLACTONE 25 MG TAB PO SCH (09:44)
[2022-07-29] MEDS: PANTOPRAZOLE 40 MG/10 ML VIAL IVP SCH ×2 (09:44→20:34)
[2022-07-29] MEDS: ASCORBIC ACID 500 MG TAB PO SCH (09:44)
[2022-07-29] MEDS: ASPIRIN 81 MG PO SCH (09:44)
[2022-07-29] MEDS: METOPROLOL TARTRATE 25 MG TAB PO SCH ×2 (09:44→20:34)
[2022-07-29] MEDS: PREGABALIN 100 MG CAP PO SCH ×3 (09:44→23:47)
[2022-07-29] MEDS: SODIUM FERRIC GLUCONAT-SUCROSE 125 MG in SODIUM CHLORIDE 0.9% 100 ML IVPB SCH (09:45)
[2022-07-29 10:12] LABS: LDH 310 U/L (120-246)
[2022-07-29 10:20] LABS: Reticulocyte % 1.3 % (0.5-2.0)
--- NOTE | 2022-07-29 10:39 | P.PN ---
Subjective Patient is seen in follow-up for acute kidney injury. Renal function improved. Creatinine 1.0 yesterday. Nonoliguric. Mentation improved. No active bleeding. Labs from this morning pending. Vital signs are stable. General: No acute distress. HEENT: Head exam is unremarkable. On nasal cannula. LUNGS: No audible rhonchi or wheezes. HEART: Rate and Rhythm are regular. ABDOMEN: No distention. EXTREMITITES: No edema. Objective - Vital Signs Vital signs: Vital Signs Temp 98.5 F 07/29/22 08:00 Pulse 93 07/29/22 08:00 Resp 18 07/29/22 08:00 BP 91/58 07/29/22 08:00 Pulse Ox 95 07/29/22 09:05 FiO2 Intake & Output 07/28/22 07/29/22 07/29/22 18:59 06:59 18:59 Output Total 1500 Balance -1500 Output: Urine 1500 Other: Voiding Method Urinal Urinal # Voids 0 - Labs CBC & Chem 7: 07/28/22 07:23 07/28/22 07:23 Labs: Abnormal Lab Results - Last 24 Hours (Table) 07/28/22 07/28/22 07/29/22 Range/Units 07:23 16:38 09:21 Plt Count 70 L (150-450) k/uL Lymphocytes # (Manual) 0.26 L (1.0-4.8) k/uL POC Glucose (mg/dL) 215 H (70-110) mg/dL Lactate Dehydrogenase 310 H (120-246) U/L Microbiology - Last 24 Hours (Table) 07/26/22 21:28 Nasal Screen MRSA/MSSA - Final Nasal Swab Assessment and Plan Plan: Assessment: 1. Acute kidney injury secondary to hemodynamic ATN. Also received IV contrast on 07/26/2021 for cardiac catheterization and again July [address] abdomen.. Creatinine was 1.3 on admission - 1.0 yesterday. Baseline creatinine near 1. 1+ protein on UA. No hydronephrosis noted on CAT scan. 2. Coronary artery disease status post cardiac catheterization on 07/26/2022 with multivessel disease. CABG pending. 3. Anemia. Status post blood transfusion. Improved. Iron deficiency noted. Endoscopy tomorrow. 4. Diabetes mellitus. 5. Hyperkalemia secondary to acute kidney injury and lisinopril. Improved. 6. Cardiomyopathy. Ejection fraction 35%. 7. Volume overload. Pleural effusions noted on imaging. Plan: Add IV Lasix 40 mg once daily. Maintain IV iron. Avoid nephrotoxins. Morning labs pending. Continue to monitor renal function and urine output. Monitor for contrast- induced acute kidney injury.
[2022-07-29 11:31] LABS: Glucose,Whole Blood 93 mg/dL (70-110)
[2022-07-29] MEDS: FUROSEMIDE 10 MG/ML 4 ML VIAL IV SCH (12:38)
[2022-07-29] MEDS: FERROUS SULFATE 325 MG TAB PO SCH (12:38)
--- NOTE | 2022-07-29 13:11 | P.PN ---
Subjective Progress Note Date: 07/29/22 HISTORY OF PRESENT ILLNESS: This is a 66-year-old male patient of Dr. Sindi Montes De Oca with a past medical history significant for coronary artery disease with previous stenting, hypertension, hyperlipidemia, and former nicotine dependence. Patient has had several hospitalizations regarding coronary artery disease with cardiac catheterizations as noted below. Patient states that last evening he developed chest pain that was really bad while he was just walking in his house. He also complains of numbness in the bilateral arms and pain in the left arm. He states he had some lightheadedness and dizziness, difficulty breathing. Patient also states he had dark urine. He states the pain is exactly like he had previous to recent stenting. He states he took 2 nitroglycerin with no improvement. He also complains of his abdomen being hard and hurts on the side. His last bowel mov ement was yesterday and he does state he sometimes has blood in the stool sometimes quite a bit. He is noted to have a low hemoglobin since May of this year and he states he has not had this worked up. Patient pain when he presented was 17/02 and now states it's -06/05 * EKG reveals sinus mechanism with ST depression * Chest xray small bilateral pleural effusions. Associated atelectasis versus pneumonia. Prominent markings may represent pulmonary vascular congestion * Laboratory data: WBC 3.4, hemoglobin 8.8, platelet count 80. Initial BUN and creatinine 28 and 0.95 now at 24 and 1.31. Troponin 0.066, 6.390, 11.6 * Current home cardiac medications include aspirin 325 mg daily, atorvastatin 80 mg at bedtime, lisinopril 2.5 mg daily, metoprolol tartrate 12.5 mg twice daily, Nitrostat as needed, Effient 10 mg daily. * Cardiac catheterization history: June 2018 revealing diffuse coronary artery disease through the total occlusion of the distal RCA with proximal 70% stenosis in the midportion. 70-80% stenosis of the mid circumflex. The stents in the proximal RCA and circumflex are open. The LAD has about a 30- 40% lesion in the midportion. The patient underwent stenting of the mid left circumflex. Attempted balloon angioplasty of the right coronary artery. * Cardiac catheterization 06/17/[address] Montes De Oca revealed severe disease involving the proximal LAD, patient underwent successful stenting of the proximal LAD by Dr. Mullins. * Cardiac catheterization 06/27/[address] Mullins revealed patent stent in the proximal LAD. Intermediate lesion involving the very proximal LAD right after the takeoff from the left main appears to be in the range of 60%. Intermediate disease involving the first obtuse marginal branch which is a large caliber vessel. Mildly elevated left-sided filling pressures. Plan was for medical management and absence of any high-grade lesions. * Echocardiogram 06/27/2022: EF 30-35% 07/29/2022 Patient is status post cardiac catheterization on 07/26/2022 revealing severe stenosis involving the ostium of the LAD and the left circumflex. Chronically occluded right coronary artery. Collaterals from the left system. Elevated LVE DP. Evaluation for CABG was recommended. Patient examined this morning at the bedside. Patient has a plant safety engineer present. Patient denies any chest pain or pressure. He denies shortness of breath. Patient is scheduled for EGD and colonoscopy tomorrow with general surgery. PHYSICAL EXAM: VITAL SIGNS: Reviewed. GENERAL: Well-developed in no acute distress. NECK: Supple. No JVD or thyromegaly LUNGS: Respirations even and unlabored. Lungs essentially clear to auscultation bilaterally. HEART: Regular rate and rhythm. S1 and S2 heard. EXTREMITIES: Normal range of motion. No clubbing or cyanosis. Peripheral pulses intact. No lower extremity edema ASSESSMENT: Non-STEMI, as well as cardiac catheterization with results as above Anemia, EGD and colonoscopy pending Coronary artery disease with previous stenting to the proximal RCA and circumfl ex Known chronic total occlusion of the distal RCA Ischemic cardiomyopathy, ejection fraction 30-35% Hypertension Hyperlipidemia Diabetes Pancytopenia Acute kidney injury Former nicotine dependence Depression with suicidal ideation PLAN: Continue current cardiac medications Patient scheduled for EGD and colonoscopy tomorrow CT surgery following for CABG. Timing to be determined Further recommendations pending patient course Nurse practitioner note has been reviewed by physician. Signing provider agrees with the documented findings, assessment, and plan of care. Objective - Vital Signs Vital signs: Vital Signs Temp 98.7 F 07/29/22 11:55 Pulse 94 07/29/22 11:55 Resp 18 07/29/22 11:55 BP 135/69 07/29/22 11:55 Pulse Ox 98 07/29/22 11:55 FiO2 Intake & Output 07/28/22 07/29/22 07/29/22 18:59 06:59 18:59 Output Total 1500 Balance -1500 Output: Urine 1500 Other: Voiding Method Urinal Urinal # Voids 0 - Labs CBC & Chem 7: 07/28/22 07:23 07/28/22 07:23 Labs: Abnormal Lab Results - Last 24 Hours (Table) 07/28/22 07/28/22 07/29/22 Range/Units 07:23 16:38 09:21 Plt Count 70 L (150-450) k/uL Lymphocytes # (Manual) 0.26 L (1.0-4.8) k/uL POC Glucose (mg/dL) 215 H (70-110) mg/dL Lactate Dehydrogenase 310 H (120-246) U/L Microbiology - Last 24 Hours (Table) 07/26/22 21:28 Nasal Screen MRSA/MSSA - Final Nasal Swab
--- NOTE | 2022-07-29 13:35 | P.PN ---
Subjective Progress Note Date: 07/29/22 Principal diagnosis: Acute non-ST elevation myocardial infarction, triple vessel coronary artery disease, ischemic cardiomyopathy Seeing this patient in new consultation today 07/27/2022 in regard to a presurgical clearance for CABG. This is a 66-year-old white male with past medical history significant for coronary artery disease receiving multiple previous stents (including the RCA, left circumflex, LAD), ischemic cardiomyopathy, hypertension, hyperlipidemia, diabetes mellitus type 2, ex- smoker of over 40 years ago. Patient's chest pain began 4 hours prior to arrival to the emergency room. The chest pain was described as 10 out of 10 on a numerical scale, and radiating down bilateral arms. Patient also had some associated shortness of breath and lightheadedness with this chest pain. Symptoms were consistent with prior events requiring catheterization and sten ting. Patient did take 2 nitroglycerin tabs without improvement in symptoms. ECG on arrival showed normal sinus mechanism with ST depression and T-wave inversion in the anterior leads. Troponins peaked at 11.6. Patient was taken to the Information Consultant which revealed multi vessel disease with severe stenosis involving the ostium of the LAD and left circumflex, a chronically occluded RCA, collaterals from the left system, and an elevated LVEDP. Patient was transferred to the intensive care unit after his procedure. Nitroglycerin is currently infusing at 10 mcg/m. Patient denies any current chest pain. Patient is currently resting comfortably in bed, on 4 L nasal cannula, in no acute distress. Plan is for possible coronary artery bypass graft revascularization. CBC on arrival showed a WBC count of 2.9, hemoglobin of 7.4, hematocrit 24.8, platelets 86,000. Patient does report some chronic blood loss in his stool that he has never had evaluated. BMP on arrival shows a sodium 138, potassium 5.3, chloride 102, serum CO2 30, BUN 33, creatinine 1.29, glucose 80. Patient does have a suicide sitter at bedside. Nurse reports that the patient had previous suicidal ideation and plan to shoot himself with a gun. Patient denies any suicidal ideation currently to me. Chest x-ray on arrival showed small bilateral pleural effusions with probable atelectasis and prominent pulmonary vascular congestion. Incentive spirometer is at bedside. Patient will have to undergo PFT for presurgical clearance. Vital signs are stable at this time. Reevaluated today on 07/28/2022, patient developed significant amount of confusion last night, he also developed drop in his hemoglobin patient does have chronic history of GI bleeding and surgery was consulted on patient, recommended endoscopy when the patient is medically stable. Hemoglobin went to as low as 6.6, and his baseline is 8.8. Hence the patient received a unit of packed RBCs, cardiothoracic surgery is presently on hold, although the patient seems to be now agreeable to pursue cardiac surgery if recommended. Apparently when he was initially evaluated by thoracic surgery he declined having cardiac surgery at that time. But now the patient changed his mind. Psychiatry evaluated the patient yesterday for delirium and recommended mostly Prolixin every 8 hours for psychosis and to continue Seroquel. Today the patient seems to be more appropriate, not agitated, and not as confused. Patient is on 4 L nasal cannula and O2 sats is 95%. Hemoglobin this morning is 8.2 electrolytes are normal renal profile is normal reevaluated today on 07/29/2022, patient is basically about the same, he is not confused today, he has a sitter at bedside, patient is being followed by many consultants,patient is scheduled for EGD and colonoscopy tomorrow. In the meantime no active pulmonary issues, patient seems to be doing fairly well, and he is calm.hemoglobin today is 8.2 WBC count is 2.6 platelets are low at 70,000.basic metabolic profile is normal renal profile is normal Objective - Vital Signs Vital signs: Vital Signs Temp 98.7 F 07/29/22 11:55 Pulse 94 07/29/22 11:55 Resp 18 07/29/22 11:55 BP 135/69 07/29/22 11:55 Pulse Ox 98 07/29/22 11:55 FiO2 Intake & Output 07/28/22 07/29/22 07/29/22 18:59 06:59 18:59 Output Total 1500 Balance -1500 Output: Urine 1500 Other: Voiding Method Urinal Urinal # Voids 0 - Exam Physical Exam: Revealed a 66-year-old white male in no distress, on 3 L nasal cannula with O2 saturation 98% Head: Atraumatic, normocephalic. HEENT:[Neck is supple.] [No neck masses.] [No thyromegaly.] [No JVD.] Chest: [Clear throughout, no crackles, no rhonchi, no wheezes.] Cardiac Exam: [Normal S1 and S2, no S3 gallop, no murmur.] Abdomen: [Soft, nontender, no megaly, no rebound, no guarding, normal bowel sounds.] Extremities: [No clubbing, 1+ bipedal edema, no cyanosis.] Neurological Exam: [No focal neurologic deficit.] Patient is alert and oriented 3. - Labs CBC & Chem 7: 07/28/22 07:23 07/28/22 07:23 Labs: Abnormal Lab Results - Last 24 Hours (Table) 07/28/22 07/28/22 07/29/22 Range/Units 07:23 16:38 09:21 Plt Count 70 L (150-450) k/uL Lymphocytes # (Manual) 0.26 L (1.0-4.8) k/uL POC Glucose (mg/dL) 215 H (70-110) mg/dL Lactate Dehydrogenase 310 H (120-246) U/L Assessment and Plan Assessment: Impression: Acute non-ST elevation myocardial infarction Triple-vessel coronary artery disease, previous multiple stents placed. Severe stenosis involving the ostium of the LAD and the left circumflex as well as chronically occluded RCA Ischemic cardiomyopathy Acute blood loss anemia, being evaluated by surgery EGD and colonoscopy scheduled on Acute kidney injury Benign essential hypertension Dyslipidemia Ex-smoker Recommendation: continue present supportive care measures Continue cardiac meds Continue medications as per psychiatry recommendation Continue GI and DVT prophylaxis Cardiothoracic surgery planning outpatient evaluation and if surgery is to be done We will continue to follow. Prognosis is guarded. Time with Patient: Less than 30
--- NOTE | 2022-07-29 15:36 | P.PN ---
Subjective Progress Note Date: 07/29/22 CHIEF COMPLAINT: Chest pain HISTORY OF PRESENT ILLNESS: Patient was transferred out of the ICU and is cur rently on the cardiac floor. He still has bedside sitter. Apparently he failed the bedside swallow eval and there is concerns for risk of silent aspiration. He is currently nothing by mouth. Speech therapist's is unable to do an MBS study due to an active GI bleed. Patient denies any abdominal pain. Currently not having any bleeding. Has had no bowel movement. Denies any nausea or vomiting. Afebrile. Hemoglobin 8.2. Patient seen by cardiothoracic team on the recommending resolution of all acute illnesses before proceeding with CABG. And recommend follow-up outpatient for surgery plan. Patient seen and examined with Dr. Melendrez PHYSICAL EXAM: VITAL SIGNS: Reviewed. GENERAL: Well-developed in no acute distress. HEENT: No sclera icterus. Extraocular movements grossly intact. Moist buccal mucosa. Head is atraumatic, normocephalic. ABDOMEN: Soft. Mildly distended. Mild diffuse tenderness NEUROLOGIC: Alert and oriented. Cranial nerves II through XII grossly intact. ASSESSMENT: 1. Microcytic anemia 2. Reports blood in stools at home 3. Non-ST elevated [place] being evaluated for possible CABG 4. Pancytopenia 5. Possible chronic cholecystitis with evidence of gallbladder sludge on CAT scan PLAN: -EGD and colonoscopy canceled for tomorrow due to patient's nothing by mouth status because of possible silent aspiration. Patient unable to tolerate bowel prep. -Check stool for occult blood -Continue to monitor hemoglobin -Continue to monitor for any signs or symptoms of bleeding -Continue supportive care Physician Customer Care Manager note has been reviewed by physician. Signing provider agrees with the documented findings, assessment, and plan of care. Objective - Vital Signs Vital signs: Vital Signs Temp 98.7 F 07/29/22 11:55 Pulse 94 07/29/22 13:54 Resp 18 07/29/22 13:54 BP 135/69 07/29/22 11:55 Pulse Ox 98 07/29/22 11:55 FiO2 Intake & Output 07/28/22 07/29/22 07/29/22 18:59 06:59 18:59 Output Total 1500 Balance -1500 Output: Urine 1500 Other: Voiding Method Urinal Urinal Urinal # Voids 0 - Labs CBC & Chem 7: 07/28/22 07:23 07/28/22 07:23 Labs: Abnormal Lab Results - Last 24 Hours (Table) 07/28/22 07/29/22 Range/Units 16:38 09:21 POC Glucose (mg/dL) 215 H (70-110) mg/dL Lactate Dehydrogenase 310 H (120-246) U/L
[2022-07-29 16:22] LABS: Glucose,Whole Blood 165 mg/dL (70-110)
[2022-07-29 17:04] LABS: Rheumatoid Factor, Qnt <10 IU/mL (0-15)
--- NOTE | 2022-07-29 18:09 | P.CONS ---
History of Present Illness - Reason for Consult Consult date: 07/29/22 pancytopenia Requesting physician: Janette Alvarado - Chief Complaint Chest pain - History of Present Illness Mr Vazquez is a pleasant 66-year-old male we have been asked to see in regards to pancytopenia. Patient denies any history of the same, has never seen a Hydrographer, denies any history of cancer or treatment for cancer, no toxic exposures that he is aware of. No service. No new medical diagnosis, new medications, recent illness or infections. Never had an EGD, colonoscopy or prostate exam. Patient denies illicit drug use, EtOH abuse. Anemia and thrombocytopenia noted in the chart since at least 2014, this has progressed significantly since May of this year, normal white blood cell count previously. Review of Systems 10 point review of systems is as stated in HPI Past Medical History Past Medical History: Coronary Artery Disease (CAD), Chest Pain / Angina, Diabetes Mellitus, GI Bleed (Patient states occasional blood in his stool), Hyperlipidemia, Hypertension, Myocardial Infarction (non Q-wave) Additional Past Medical History / Comment(s): IDDM type II, L knee pain due to tendon problem, bilateral foot pain. History of Any Multi-Drug Resistant Organisms: None Reported Past Surgical History: Heart Catheterization With Stent Additional Past Surgical History / Comment(s): 02/11/16 cath with stent to cx. Other surgical hx: 09/14/14 HEART CATH with stent to RCA (TRIPLE VESSEL DISEASE FOUND). Past Anesthesia/Blood Transfusion Reactions: No Reported Reaction Additional Past Anesthesia/Blood Transfusion Reaction / Comm: NO PAST SURGURIES Date of Last Stent Placement:: 2015 Additional Psychological History / Comment(s): Patient has had recent suicidal ideation Smoking Status: Former smoker (With smoking over 40 years ago) Past Alcohol Use History: None Reported Past Drug Use History: None Reported - Past Family History Brother(s) Additional Family Medical History / Comment(s): Pt had one brother who had a CVA at the age of 68yrs and another brother who had a ND at the age of 61yrs. Father History Unknown: Yes Additional Family Medical History / Comment(s): Patient reports that his dad more than likely from EtOH abuse Mother History Unknown: Yes Family Medical History: Cancer (Unknown type of cancer) Medications and Allergies Home Medications Medication Instructions Recorded Confirmed Type Pregabalin [Lyrica] 200 mg PO TID 09/14/14 07/26/22 History Aspirin 325 mg PO DAILY tab 09/15/14 07/26/22 Rx Prasugrel [Effient] 10 mg PO DAILY #30 tab 09/15/14 07/26/22 Rx lisinopriL [Zestril] 2.5 mg PO DAILY #30 tab 09/15/14 07/26/22 Rx Metoprolol Tartrate 12.5 mg PO BID 06/28/18 07/26/22 History Insulin Degludec [Tresiba 40 units SQ DAILY 06/16/22 07/26/22 History Flextouch U-100 Pen] Atorvastatin [Lipitor] 80 mg PO HS #90 tab 06/18/22 07/26/22 Rx Nitroglycerin Sl Tabs [Nitrostat] 0.4 mg SUBLINGUAL Q5M PRN #50 tab 06/18/22 0 07/26/22 Rx Allergies Allergy/AdvReac Type Severity Reaction Status Date / Time No Known Allergies Allergy Verified 07/26/22 11:34 Physical Exam Vitals: Vital Signs Temp Pulse Pulse Resp BP BP Pulse Ox 07/29/22 11:55 98.7 F 94 18 135/69 98 07/29/22 09:05 95 07/29/22 08:00 98.5 F 93 18 91/58 93 L 07/29/22 04:00 98.7 F 90 18 106/65 93 L 07/29/22 03:29 95 18 07/29/22 00:00 98.5 F 95 18 96/62 92 L 07/28/22 20:00 100.2 F H 80 18 94/59 94 L 07/28/22 15:39 98.9 F 79 18 104/68 97 07/28/22 13:30 81 47 H 105/67 07/28/22 13:00 86 24 91/69 97 07/28/22 12:30 77 24 91/69 99 Intake and Output 07/28/22 07/29/22 07/29/22 22:59 06:59 14:59 Output Total 950 Balance -950 Output: Urine 950 Other: Voiding Method Urinal Urinal - Constitutional General appearance: average body habitus, cooperative, no acute distress - EENT Eyes: anicteric sclerae, EOMI ENT: hearing grossly normal, normal oropharynx - Neck Neck: no lymphadenopathy - Respiratory Respiratory: bilateral: rhonchi (Expiratory) - Cardiovascular Rhythm: regular Heart sounds: normal: S1, S2 Abnormal Heart Sounds: no systolic murmur, no diastolic murmur, no rub, no S3 Gallop, no S4 Gallop, no click, no other leg Peripheral Edema: bilateral: None - Gastrointestinal General gastrointestinal: no absent bowel sounds, no decreased bowel sounds, no distended, no hepatomegaly, no hyperactive bowel sounds, normal bowel sounds, no organomegaly, no rigid, no scaphoid, soft, no splenomegaly, no tenderness, no umbilical hernia, no ventral hernia - Integumentary Integumentary: normal - Neurologic Neurologic: CNII-XII intact (Grossly) - Musculoskeletal Musculoskeletal: strength equal bilaterally - Psychiatric Psychiatric: A&O x's 3, appropriate affect, intact judgment & insight Results CBC & Chem 7: 07/28/22 07:23 07/28/22 07:23 Labs: Abnormal Lab Results - Last 24 Hours (Table) 07/28/22 07/28/22 07/29/22 Range/Units 07:23 16:38 09:21 Plt Count 70 L (150-450) k/uL Lymphocytes # (Manual) 0.26 L (1.0-4.8) k/uL POC Glucose (mg/dL) 215 H (70-110) mg/dL Lactate Dehydrogenase 310 H (120-246) U/L Microbiology - Last 24 Hours (Table) 07/26/22 21:28 Nasal Screen MRSA/MSSA - Final Nasal Swab Chest x-ray: report reviewed CT scan - abdomen: report reviewed CT Scan - head: report reviewed CT scan - pelvis: report reviewed Assessment and Plan (1) Pancytopenia Current Visit: Yes Status: Acute Priority: High Code(s): D61.818 - OTHER PANCYTOPENIA SNOMED Code(s): 058495426 Plan: Pancytopenia -Reviewed with patient that pancytopenia is. None of his counts currently are so low that that they require intervention. -Chart review shows mild anemia and thrombocytopenia for at least 8 years, this has progressed significantly since 2022 and now includes leukopenia -Medication list reviewed, no significant marrow suppressing agents seen -CT AP and CT ead, no evidence of masses or unusual findings in the bones -Pancytopenia workup ordered -Patient is not current on age-related cancer screenings. Would recommend colonoscopy as well as prostate exam. PSA will be ordered. -Transfuse for hemoglobin less than 7, platelets less than 10,000 or if patient is symptomatic. No acute intervention for WBC of 2.6, ANC is adequate at 2100 -Further workup will be recommended based on testing results.
[2022-07-29 18:24] LABS: Protein, Total 5.7 g/dL (6.2-8.2)
[2022-07-29 20:17] LABS: Glucose,Whole Blood 111 mg/dL (70-110)
[2022-07-29] MEDS: INSULIN DETEMIR (LEVEMIR) 100 UNIT/ML SYR SQ SCH (20:24)
[2022-07-29] MEDS: ATORVASTATIN 80 MG TAB PO SCH (20:34)
[2022-07-29] MEDS: QUEtiapine 25 MG TAB PO SCH (20:34)
[2022-07-30] MEDS: NITROGLYCERIN OINT 1 INCH/GM PACKET TOPICAL SCH ×4 (00:25→23:58)
[2022-07-30 05:44] LABS: Glucose,Whole Blood 84 mg/dL (70-110)
[2022-07-30] MEDS: INSULIN ASPART (NovoLOG) 100 UNIT/ML VIAL SQ SCH ×4 (05:55→21:23)
[2022-07-30 08:46] LABS: Anisocytosis Slight; HCT 31.2 % (39.0-53.0); HGB 9.8 gm/dL (13.0-17.5); Hypochromasia Marked; MCH 23.2 pg (25.0-35.0); MCHC 31.2 g/dL (31.0-37.0); MCV 74.4 fL (80.0-100.0); Mean Platelet Volume 11.9; Microcytosis Moderate; Poikilocytosis Moderate; RDW 18.7 % (11.5-15.5); WBC 2.3 k/uL (3.8-10.6)
--- NOTE | 2022-07-30 08:48 | P.PN ---
Subjective Progress Note Date: 07/30/22 Principal diagnosis: Chest pain This is a 66-year-old male who was originally admitted for chest pain, likely requiring a CABG. Earlier this week had significant altered mental status and requires a sitter. Patient also presented with low hemoglobin and bloody stool, plan was for an EGD/colonoscopy today but patient failed his swallow evaluation. Speech therapy notes patient is a risk for silent aspiration. Patient unable to undergo prep for procedures today due to nothing by mouth status. Patient is seen laying in bed this morning with sitter present. He is very agitated and upset that nothing is getting done, reports he will "cancel his insurance and leave". Dr. Vazquez had a lengthy conversation with patient about importance of staying in the hospital and completing testing and procedures. Will see if speech therapy can do a modified swallow evaluation today. Objective - Vital Signs Vital signs: Vital Signs Temp 99.2 F 07/30/22 03:36 Pulse 84 07/30/22 03:36 Resp 18 07/30/22 03:36 BP 102/62 07/30/22 03:36 Pulse Ox 96 07/30/22 03:36 FiO2 Intake & Output 07/29/22 07/30/22 07/30/22 18:59 06:59 18:59 Intake Total 118 Output Total 200 250 Balance -82 -250 Intake: Oral 118 Output: Urine 200 250 Other: Voiding Method Urinal # Voids 1 - Constitutional General appearance: Present: no acute distress - EENT Eyes: Present: EOMI, PERRLA - Neck Neck: Present: normal ROM. Absent: lymphadenopathy, rigidity - Respiratory Respiratory: bilateral: CTA - Cardiovascular Rhythm: regular Heart sounds: normal: S1, S2 - Gastrointestinal General gastrointestinal: Present: soft. Absent: tenderness - Integumentary Integumentary: Present: normal, normal turgor - Psychiatric Psychiatric Comment(s): Agitated Psychiatric: Present: appropriate affect, intact judgment & insight - Labs CBC & Chem 7: 07/28/22 07:23 07/28/22 07:23 Labs: Abnormal Lab Results - Last 24 Hours (Table) 07/29/22 07/29/22 07/29/22 Range/Units 09:21 09:21 16:20 Haptoglobin 202.0 H (31.2-198.0) mg/dL POC Glucose (mg/dL) 165 H (70-110) mg/dL Lactate Dehydrogenase 310 H (120-246) U/L Total Protein (PEP) 5.7 L (6.2-8.2) g/dL 07/29/22 Range/Units 20:16 Haptoglobin (31.2-198.0) mg/dL POC Glucose (mg/dL) 111 H (70-110) mg/dL Lactate Dehydrogenase (120-246) U/L Total Protein (PEP) (6.2-8.2) g/dL Assessment and Plan (1) Chest pain Current Visit: Yes Status: Acute Code(s): R07.9 - CHEST PAIN, UNSPECIFIED SNOMED Code(s): 95227808 (2) Acute kidney injury Current Visit: Yes Status: Acute Code(s): N17.9 - ACUTE KIDNEY FAILURE, UNSPECIFIED SNOMED Code(s): 16122700 (3) Delirium Current Visit: Yes Status: Acute Code(s): R41.0 - DISORIENTATION, UNSPECIFIED SNOMED Code(s): 0303140 (4) GI bleed Current Visit: Yes Status: Acute Code(s): K92.2 - GASTROINTESTINAL HEMORRHAGE, UNSPECIFIED SNOMED Code(s): 14622554 (5) NSTEMI (non-ST elevated myocardial infarction) Current Visit: Yes Status: Acute Code(s): I21.4 - NON-ST ELEVATION (NSTEMI) MYOCARDIAL INFARCTION SNOMED Code(s): 24150839 (6) Acute coronary syndrome with high troponin Current Visit: No Status: Acute Code(s): I24.9 - ACUTE ISCHEMIC HEART DISEASE, UNSPECIFIED SNOMED Code(s): 813047992 (7) Diabetes Current Visit: No Status: Acute Code(s): E11.9 - TYPE 2 DIABETES MELLITUS WITHOUT COMPLICATIONS SNOMED Code(s): 18825813 (8) Hypertension Current Visit: No Status: Acute Code(s): I10 - ESSENTIAL (PRIMARY) HYPERTENSION SNOMED Code(s): 22934162 Plan: Continue sitter at bedside. Check CBC and CMP in the morning. Have speech therapy do a modified swallow evaluation in hopes patient does pass that so he may complete the prep for EGD and colonoscopy. Patient seen and evaluated by nurse practitioner, physician in agreement with plan
[2022-07-30 09:02] LABS: Albumin 3.6 g/dL (3.5-5.0); Calcium 8.1 mg/dL (8.4-10.2); Potassium 3.9 mmol/L (3.5-5.1); Total Bilirubin 0.9 mg/dL (0.2-1.3); Total Protein 6.5 g/dL (6.3-8.2)
--- NOTE | 2022-07-30 09:23 | P.PN ---
Subjective Progress Note Date: 07/29/22 Patient was seen for a follow-up. Patient is now transferred to [facility]. He is doing better. Denies any headache. Telemetry monitoring showing sinus rhythm, ST depression. No other arrhythmia. Objective - Vital Signs Vital signs: Vital Signs Temp 98.7 F 07/29/22 11:55 Pulse 94 07/29/22 13:54 Resp 18 07/29/22 13:54 BP 135/69 07/29/22 11:55 Pulse Ox 98 07/29/22 11:55 FiO2 Intake & Output 07/28/22 07/29/22 07/29/22 18:59 06:59 18:59 Output Total 1500 200 Balance -1500 -200 Output: Urine 1500 200 Other: Voiding Method Urinal Urinal Urinal # Voids 0 - Exam On examination patient knows it is July and the year is and that he is in [facility] in [place]. Speech-language functions are normal. On cranial nerve examination, face is symmetric, tongue protrudes the midline. Visual nelson are full. Extraocular muscles are intact. On muscle strength testing, there is no pronator drift. There is no tremors noted. No metabolic jerks seen. No ataxia. - Labs CBC & Chem 7: 07/28/22 07:23 07/30/22 08:35 Labs: Abnormal Lab Results - Last 24 Hours (Table) 07/29/22 07/29/22 07/29/22 Range/Units 09:21 09:21 16:20 Haptoglobin 202.0 H (31.2-198.0) mg/dL POC Glucose (mg/dL) 165 H (70-110) mg/dL Lactate Dehydrogenase 310 H (120-246) U/L Assessment and Plan Assessment: * Altered mental status, likely due to acute delirium, with component of metabolic encephalopathy. Reasons multifactorial as mentioned below. * Acute non-STEMI * Pancytopenia, anemia status post transfusion * Hypercapnia * Acute GI bleed * Recent episode of hypoglycemia with blood sugar 47 at 5:26 AM today. * Coronary artery disease * Bilateral pleural effusion, moderate right, small left side. * Hypertension * Hyperlipidemia * Diabetes * X tobacco use Plan: * Patient's mentation has improved. His examination is nonfocal, and his myoclonic jerks have also improved. * CT head showed no acute process. * Patient is undergoing EGD and colonoscopy on 07/30/2022. * Treatment of various medical conditions as per IM and other specialties. * Neurology will follow clinically.
[2022-07-30 09:42] LABS: Platelet Count 93 k/uL (150-450)
[2022-07-30] MEDS: SODIUM FERRIC GLUCONAT-SUCROSE 125 MG in SODIUM CHLORIDE 0.9% 100 ML IVPB SCH (09:47)
[2022-07-30] MEDS: FUROSEMIDE 10 MG/ML 4 ML VIAL IV SCH (09:47)
[2022-07-30] MEDS: PANTOPRAZOLE 40 MG/10 ML VIAL IVP SCH ×2 (09:47→21:23)
[2022-07-30] MEDS: METOPROLOL TARTRATE 25 MG TAB PO SCH ×2 (09:48→21:23)
[2022-07-30] MEDS: ASPIRIN 81 MG PO SCH (09:48)
[2022-07-30] MEDS: EZETIMIBE 10 MG TAB PO SCH (09:48)
[2022-07-30] MEDS: PREGABALIN 100 MG CAP PO SCH ×3 (09:48→21:23)
[2022-07-30] MEDS: SPIRONOLACTONE 25 MG TAB PO SCH (09:48)
[2022-07-30] MEDS: ASCORBIC ACID 500 MG TAB PO SCH (09:48)
[2022-07-30 10:17] LABS: Free Kappa Lt Chain Qnt, Serum 6.64 mg/dL (0.33-1.94); Free Lambda Lt Chain Qnt, Seru 5.22 mg/dL (0.57-2.63)
--- NOTE | 2022-07-30 10:58 | P.PN ---
Subjective Patient is seen in follow-up for acute kidney injury. Renal function slightly worse from diuresis. Creatinine 1.2 today. Nonoliguric. Mentation improved. No active bleeding. No active complaints at this time. Vital signs are stable. General: No acute distress. HEENT: Head exam is unremarkable. On nasal cannula. LUNGS: No audible rhonchi or wheezes. HEART: Rate and Rhythm are regular. ABDOMEN: No distention. EXTREMITITES: No edema. Objective - Vital Signs Vital signs: Vital Signs Temp 98.9 F 07/30/22 08:00 Pulse 85 07/30/22 08:00 Resp 18 07/30/22 08:00 BP 116/65 07/30/22 08:00 Pulse Ox 93 L 07/30/22 08:48 FiO2 Intake & Output 07/29/22 07/30/22 07/30/22 18:59 06:59 18:59 Intake Total 118 Output Total 200 250 Balance -82 -250 Intake: Oral 118 Output: Urine 200 250 Other: Voiding Method Urinal # Voids 1 - Labs CBC & Chem 7: 07/30/22 08:35 07/30/22 08:35 Labs: Abnormal Lab Results - Last 24 Hours (Table) 07/29/22 07/29/22 07/29/22 Range/Units 09:21 16:20 20:16 WBC (3.8-10.6) k/uL RBC (4.30-5.90) m/uL Hgb (13.0-17.5) gm/dL Hct (39.0-53.0) % MCV (80.0-100.0) fL MCH (25.0-35.0) pg RDW (11.5-15.5) % Plt Count (150-450) k/uL Haptoglobin 202.0 H (31.2-198.0) mg/dL Sodium (137-145) mmol/L Chloride (98-107) mmol/L Carbon Dioxide (22-30) mmol/L BUN (9-20) mg/dL Glucose (74-99) mg/dL POC Glucose (mg/dL) 165 H 111 H (70-110) mg/dL Calcium (8.4-10.2) mg/dL Total Protein (PEP) 5.7 L (6.2-8.2) g/dL Free [place] LC, Quant 6.64 H (0.33-1.94) mg/dL Free Lambda LC, Quant 5.22 H (0.57-2.63) mg/dL 07/30/22 07/30/22 Range/Units 08:35 08:35 WBC 2.3 L (3.8-10.6) k/uL RBC 4.20 L (4.30-5.90) m/uL Hgb 9.8 L D (13.0-17.5) gm/dL Hct 31.2 L (39.0-53.0) % MCV 74.4 L (80.0-100.0) fL MCH 23.2 L (25.0-35.0) pg RDW 18.7 H (11.5-15.5) % Plt Count 93 L (150-450) k/uL Haptoglobin (31.2-198.0) mg/dL Sodium 135 L (137-145) mmol/L Chloride 94 L (98-107) mmol/L Carbon Dioxide 34 H (22-30) mmol/L BUN 24 H (9-20) mg/dL Glucose 73 L (74-99) mg/dL POC Glucose (mg/dL) (70-110) mg/dL Calcium 8.1 L (8.4-10.2) mg/dL Total Protein (PEP) (6.2-8.2) g/dL Free [place] LC, Quant (0.33-1.94) mg/dL Free Lambda LC, Quant (0.57-2.63) mg/dL Assessment and Plan Plan: Assessment: 1. Acute kidney injury secondary to hemodynamic ATN. Also received IV contrast on 07/26/2021 for cardiac catheterization and again July [address] abdomen. Renal function a little worse today from diuresis. Creatinine 1.2. Baseline creatinine near 1. 1+ protein on UA. No hydronephrosis noted on CAT scan. 2. Coronary artery disease status post cardiac catheterization on 07/26/2022 with multivessel disease. CABG pending. 3. Anemia. Status post blood transfusion. Improved. Iron deficiency noted. Barium swallow today. Endoscopy pending. Hemoglobin 9.8. 4. Diabetes mellitus. 5. Hyperkalemia secondary to acute kidney injury and lisinopril. Improved. 6. Cardiomyopathy. Ejection fraction 35%. 7. Volume overload. Pleural effusions noted on imaging. Plan: Maintain IV Lasix. Maintain IV iron. Avoid nephrotoxins. Continue to monitor renal function and urine output.
--- NOTE | 2022-07-30 10:59 | P.PN ---
Subjective Progress Note Date: 07/30/22 HISTORY OF PRESENT ILLNESS: This is a 66-year-old male patient of Dr. Sindi Montes De Oca with a past medical history significant for coronary artery disease with previous stenting, hypertension, hyperlipidemia, and former nicotine dependence. Patient has had several hospitalizations regarding coronary artery disease with cardiac catheterizations as noted below. Patient states that last evening he developed chest pain that was really bad while he was just walking in his house. He also complains of numbness in the bilateral arms and pain in the left arm. He states he had some lightheadedness and dizziness, difficulty breathing. Patient also states he had dark urine. He states the pain is exactly like he had previous to recent stenting. He states he took 2 nitroglycerin with no improvement. He also complains of his abdomen being hard and hurts on the side. His last bowel mov ement was yesterday and he does state he sometimes has blood in the stool sometimes quite a bit. He is noted to have a low hemoglobin since May of this year and he states he has not had this worked up. Patient pain when he presented was 17/02 and now states it's -06/05 * EKG reveals sinus mechanism with ST depression * Chest xray small bilateral pleural effusions. Associated atelectasis versus pneumonia. Prominent markings may represent pulmonary vascular congestion * Laboratory data: WBC 3.4, hemoglobin 8.8, platelet count 80. Initial BUN and creatinine 28 and 0.95 now at 24 and 1.31. Troponin 0.066, 6.390, 11.6 * Current home cardiac medications include aspirin 325 mg daily, atorvastatin 80 mg at bedtime, lisinopril 2.5 mg daily, metoprolol tartrate 12.5 mg twice daily, Nitrostat as needed, Effient 10 mg daily. * Cardiac catheterization history: June 2018 revealing diffuse coronary artery disease through the total occlusion of the distal RCA with proximal 70% stenosis in the midportion. 70-80% stenosis of the mid circumflex. The stents in the proximal RCA and circumflex are open. The LAD has about a 30- 40% lesion in the midportion. The patient underwent stenting of the mid left circumflex. Attempted balloon angioplasty of the right coronary artery. * Cardiac catheterization 06/17/[address] Montes De Oca revealed severe disease involving the proximal LAD, patient underwent successful stenting of the proximal LAD by Dr. Mullins. * Cardiac catheterization 06/27/[address] Mullins revealed patent stent in the proximal LAD. Intermediate lesion involving the very proximal LAD right after the takeoff from the left main appears to be in the range of 60%. Intermediate disease involving the first obtuse marginal branch which is a large caliber vessel. Mildly elevated left-sided filling pressures. Plan was for medical management and absence of any high-grade lesions. * Echocardiogram 06/27/2022: EF 30-35% 07/29/2022 Patient is status post cardiac catheterization on 07/26/2022 revealing severe stenosis involving the ostium of the LAD and the left circumflex. Chronically occluded right coronary artery. Collaterals from the left system. Elevated LVE DP. Evaluation for CABG was recommended. Patient examined this morning at the bedside. Patient has a registered safety engineer present. Patient denies any chest pain or pressure. He denies shortness of breath. Patient is scheduled for EGD and colonoscopy tomorrow with general surgery. 07/30/2022 Patient examined this morning at the bedside. Patient underwent speech evaluation yesterday in which they were unable to fully rule out aspiration at the bedside. Patient requires modified barium swallow so his bowel prep was unable to be completed yesterday. Hence, his EGD and colonoscopy for today have been delayed. Patient denies any chest pain or pressure. He denies any shortness of breath. Vital signs are stable. PHYSICAL EXAM: VITAL SIGNS: Reviewed. GENERAL: Well-developed in no acute distress. NECK: Supple. No JVD or thyromegaly LUNGS: Respirations even and unlabored. Lungs essentially clear to auscultation bilaterally. HEART: Regular rate and rhythm. S1 and S2 heard. EXTREMITIES: Normal range of motion. No clubbing or cyanosis. Peripheral pulses intact. No lower extremity edema ASSESSMENT: Non-STEMI, as well as cardiac catheterization with results as above Anemia, EGD and colonoscopy pending Coronary artery disease with previous stenting to the proximal RCA and circumflex Known chronic total occlusion of the distal RCA Ischemic cardiomyopathy, ejection fraction 30-35% Hypertension Hyperlipidemia Diabetes Pancytopenia Acute kidney injury Former nicotine dependence Depression with suicidal ideation PLAN: Continue current cardiac medications Patient to undergo modified barium swallow EGD and colonoscopy delayed pending modified barium swallow as patient is unable to complete colonoscopy prep until modified barium swallow is completed. CT surgery following for CABG. Timing to be determined Further recommendations pending patient course Nurse practitioner note has been reviewed by physician. Signing provider agrees with the documented findings, assessment, and plan of care. Objective - Vital Signs Vital signs: Vital Signs Temp 98.9 F 07/30/22 08:00 Pulse 85 07/30/22 08:00 Resp 18 07/30/22 08:00 BP 116/65 07/30/22 08:00 Pulse Ox 93 L 07/30/22 08:48 FiO2 Intake & Output 07/29/22 07/30/22 07/30/22 18:59 06:59 18:59 Intake Total 118 Output Total 200 250 Balance -82 -250 Intake: Oral 118 Output: Urine 200 250 Other: Voiding Method Urinal # Voids 1 - Labs CBC & Chem 7: 07/30/22 08:35 07/30/22 08:35 Labs: Abnormal Lab Results - Last 24 Hours (Table) 07/29/22 07/29/22 07/29/22 Range/Units 09:21 16:20 20:16 WBC (3.8-10.6) k/uL RBC (4.30-5.90) m/uL Hgb (13.0-17.5) gm/dL Hct (39.0-53.0) % MCV (80.0-100.0) fL MCH (25.0-35.0) pg RDW (11.5-15.5) % Plt Count (150-450) k/uL Haptoglobin 202.0 H (31.2-198.0) mg/dL Sodium (137-145) mmol/L Chloride (98-107) mmol/L Carbon Dioxide (22-30) mmol/L BUN (9-20) mg/dL Glucose (74-99) mg/dL POC Glucose (mg/dL) 165 H 111 H (70-110) mg/dL Calcium (8.4-10.2) mg/dL Total Protein (PEP) 5.7 L (6.2-8.2) g/dL Free [place] LC, Quant 6.64 H (0.33-1.94) mg/dL Free [place] LC, Quant 5.22 H (0.57-2.63) mg/dL 07/30/22 07/30/22 Range/Units 08:35 08:35 WBC 2.3 L (3.8-10.6) k/uL RBC 4.20 L (4.30-5.90) m/uL Hgb 9.8 L D (13.0-17.5) gm/dL Hct 31.2 L (39.0-53.0) % MCV 74.4 L (80.0-100.0) fL MCH 23.2 L (25.0-35.0) pg RDW 18.7 H (11.5-15.5) % Plt Count 93 L (150-450) k/uL Haptoglobin (31.2-198.0) mg/dL Sodium 135 L (137-145) mmol/L Chloride 94 L (98-107) mmol/L Carbon Dioxide 34 H (22-30) mmol/L BUN 24 H (9-20) mg/dL Glucose 73 L (74-99) mg/dL POC Glucose (mg/dL) (70-110) mg/dL Calcium 8.1 L (8.4-10.2) mg/dL Total Protein (PEP) (6.2-8.2) g/dL Free [place] LC, Quant (0.33-1.94) mg/dL Free Lambda LC, Quant (0.57-2.63) mg/dL
[2022-07-30 11:27] LABS: Glucose,Whole Blood 88 mg/dL (70-110)
[2022-07-30] MEDS: FERROUS SULFATE 325 MG TAB PO SCH (12:28)
--- NOTE | 2022-07-30 12:31 | P.PN ---
Progress Note - Text Progress Note Date: 07/30/22 The patient apparently is being scheduled for a modified barium swallow today. There was concern of possible aspiration with the bowel prep. The patient was scheduled for EGD colonoscopy today. However this was canceled until his swallowing evaluation can be performed. On exam vital signs are stable. His hemoglobin is 9.8. He is shows no sign of active GI bleed. If the patient passes his swallow evaluation. The patient will be reprepped for EGD colonoscopy. We will plan on doing his upper and lower endoscopy on Wednesday.
[2022-07-30 13:00] LABS: Albumin 3.09 g/dL (3.80-4.90); Gamma Globulin 0.77 g/dL (0.70-1.50)
[2022-07-30] MEDS ORDERED: PEG 3350 (236 GM/BTL) + LYTES 4,000 ML BOTTLE PO ONE (13:00)
--- NOTE | 2022-07-30 14:09 | FL ---
EXAMINATION TYPE: FL barium swallow w video DATE OF EXAM: 07/30/2022 CLINICAL HISTORY: 66-year-old male hospitalized for cardiac issues, intubated, extubated now with tro uble swallowing. TECHNIQUE: Deglutition study is performed utilizing thin liquid Isovue 370, Isovue thick applesauce, and Isovue coated cracker. COMPARISON: None. Total fluoroscopy time: 1 minute. Total images: None. Real-time fluoroscopy support was provided to speech pathology. Total DAP: 2.0. FINDINGS: The oral and pharyngeal phases show satisfactory initiation and propagation with all modalities teste d. Normal mastication is seen with solid modalities tested. There is no evidence of penetration or aspiration with any modality tested. No significant pharyngeal residue was appreciated. IMPRESSION: Normal deglutition study. Isovue-370 was utilized. Please refer to speech therapist notes for further details if necessary.
[2022-07-30 16:15] LABS: Glucose,Whole Blood 130 mg/dL (70-110)
--- NOTE | 2022-07-30 17:06 | P.PN ---
Subjective Progress Note Date: 07/30/22 Principal diagnosis: Acute non-ST elevation myocardial infarction, triple vessel coronary artery disease, ischemic cardiomyopathy Seeing this patient in new consultation today 07/27/2022 in regard to a presurgical clearance for CABG. This is a 66-year-old white male with past medical history significant for coronary artery disease receiving multiple previous stents (including the RCA, left circumflex, LAD), ischemic cardiomyopathy, hypertension, hyperlipidemia, diabetes mellitus type 2, ex- smoker of over 40 years ago. Patient's chest pain began 4 hours prior to arrival to the emergency room. The chest pain was described as 10 out of 10 on a numerical scale, and radiating down bilateral arms. Patient also had some associated shortness of breath and lightheadedness with this chest pain. Symptoms were consistent with prior events requiring catheterization and sten ting. Patient did take 2 nitroglycerin tabs without improvement in symptoms. ECG on arrival showed normal sinus mechanism with ST depression and T-wave inversion in the anterior leads. Troponins peaked at 11.6. Patient was taken to the [facility] which revealed multi vessel disease with severe stenosis involving the ostium of the LAD and left circumflex, a chronically occluded RCA, collaterals from the left system, and an elevated LVEDP. Patient was transferred to the intensive care unit after his procedure. Nitroglycerin is currently infusing at 10 mcg/m. Patient denies any current chest pain. Patient is currently resting comfortably in bed, on 4 L nasal cannula, in no acute distress. Plan is for possible coronary artery bypass graft revascularization. CBC on arrival showed a WBC count of 2.9, hemoglobin of 7.4, hematocrit 24.8, platelets 86,000. Patient does report some chronic blood loss in his stool that he has never had evaluated. BMP on arrival shows a sodium 138, potassium 5.3, chloride 102, serum CO2 30, BUN 33, creatinine 1.29, glucose 80. Patient does have a suicide sitter at bedside. Nurse reports that the patient had previous suicidal ideation and plan to shoot himself with a gun. Patient denies any suicidal ideation currently to me. Chest x-ray on arrival showed small bilateral pleural effusions with probable atelectasis and prominent pulmonary vascular congestion. Incentive spirometer is at bedside. Patient will have to undergo PFT for presurgical clearance. Vital signs are stable at this time. Reevaluated today on 07/28/2022, patient developed significant amount of confusion last night, he also developed drop in his hemoglobin patient does have chronic history of GI bleeding and surgery was consulted on patient, recommended endoscopy when the patient is medically stable. Hemoglobin went to as low as 6.6, and his baseline is 8.8. Hence the patient received a unit of packed RBCs, cardiothoracic surgery is presently on hold, although the patient seems to be now agreeable to pursue cardiac surgery if recommended. Apparently when he was initially evaluated by thoracic surgery he declined having cardiac surgery at that time. But now the patient changed his mind. Psychiatry evaluated the patient yesterday for delirium and recommended mostly Prolixin every 8 hours for psychosis and to continue Seroquel. Today the patient seems to be more appropriate, not agitated, and not as confused. Patient is on 4 L nasal cannula and O2 sats is 95%. Hemoglobin this morning is 8.2 electrolytes are normal renal profile is normal reevaluated today on 07/29/2022, patient is basically about the same, he is not confused today, he has a sitter at bedside, patient is being followed by many consultants,patient is scheduled for EGD and colonoscopy tomorrow. In the meantime no active pulmonary issues, patient seems to be doing fairly well, and he is calm.hemoglobin today is 8.2 WBC count is 2.6 platelets are low at 70,000.basic metabolic profile is normal renal profile is normal Reevaluated today on 07/30/2022, patient remains on the cardiac floor, relatively asymptomatic, quite cough, patient was supposed to have EGD and colonoscopy toda y, however he had a swallow evaluation which came back basically unremarkable his EGD was canceled for today. Hence EGD and colonoscopy are pending. Not much going on from the pulmonary perspective, patient is being worked up for eventual CABG if possible. Hemoglobin today is 9.8 WBC count is 2.3 left. Normal renal profile showed creatinine of 1.2. Objective - Vital Signs Vital signs: Vital Signs Temp 98.9 F 07/30/22 08:00 Pulse 72 07/30/22 12:00 Resp 18 07/30/22 14:00 BP 105/59 07/30/22 12:00 Pulse Ox 97 07/30/22 12:00 FiO2 Intake & Output 07/29/22 07/30/22 07/30/22 18:59 06:59 18:59 Intake Total 118 Output Total 200 250 Balance -82 -250 Intake: Oral 118 Output: Urine 200 250 Other: Voiding Method Urinal # Voids 1 - Exam Physical Exam: Revealed a 66-year-old white male in no distress, on 2 L nasal cannula with O2 saturation 97% Head: Atraumatic, normocephalic. HEENT:[Neck is supple.] [No neck masses.] [No thyromegaly.] [No JVD.] Chest: [Clear throughout, no crackles, no rhonchi, no wheezes.] Cardiac Exam: [Normal S1 and S2, no S3 gallop, no murmur.] Abdomen: [Soft, nontender, no megaly, no rebound, no guarding, normal bowel sounds.] Extremities: [No clubbing, 1+ bipedal edema, no cyanosis.] Neurological Exam: [No focal neurologic deficit.] Patient is alert and oriented 3. - Labs CBC & Chem 7: 07/30/22 08:35 07/30/22 08:35 Labs: Abnormal Lab Results - Last 24 Hours (Table) 07/29/22 07/29/22 07/30/22 Range/Units 09:21 20:16 08:35 WBC 2.3 L (3.8-10.6) k/uL RBC 4.20 L (4.30-5.90) m/uL Hgb 9.8 L D (13.0-17.5) gm/dL Hct 31.2 L (39.0-53.0) % MCV 74.4 L (80.0-100.0) fL MCH 23.2 L (25.0-35.0) pg RDW 18.7 H (11.5-15.5) % Plt Count 93 L (150-450) k/uL Sodium (137-145) mmol/L Chloride (98-107) mmol/L Carbon Dioxide (22-30) mmol/L BUN (9-20) mg/dL Glucose (74-99) mg/dL POC Glucose (mg/dL) 111 H (70-110) mg/dL Calcium (8.4-10.2) mg/dL Total Protein (PEP) 5.7 L (6.2-8.2) g/dL Albumin (PEP) 3.09 L (3.80-4.90) g/dL Free [place] LC, Quant 6.64 H (0.33-1.94) mg/dL Free [place] LC, Quant 5.22 H (0.57-2.63) mg/dL 07/30/22 07/30/22 Range/Units 08:35 16:14 WBC (3.8-10.6) k/uL RBC (4.30-5.90) m/uL Hgb (13.0-17.5) gm/dL Hct (39.0-53.0) % MCV (80.0-100.0) fL MCH (25.0-35.0) pg RDW (11.5-15.5) % Plt Count (150-450) k/uL Sodium 135 L (137-145) mmol/L Chloride 94 L (98-107) mmol/L Carbon Dioxide 34 H (22-30) mmol/L BUN 24 H (9-20) mg/dL Glucose 73 L (74-99) mg/dL POC Glucose (mg/dL) 130 H (70-110) mg/dL Calcium 8.1 L (8.4-10.2) mg/dL Total Protein (PEP) (6.2-8.2) g/dL Albumin (PEP) (3.80-4.90) g/dL Free [place] LC, Quant (0.33-1.94) mg/dL Free Lambda LC, Quant (0.57-2.63) mg/dL Assessment and Plan Assessment: Impression: Acute non-ST elevation myocardial infarction Triple-vessel coronary artery disease, previous multiple stents placed. Severe stenosis involving the ostium of the LAD and the left circumflex as well as chronically occluded RCA Ischemic cardiomyopathy Acute blood loss anemia, being evaluated by surgery EGD and colonoscopy scheduled on Acute kidney injury Benign essential hypertension Dyslipidemia Ex-smoker Recommendation: Barium swallow was noted today. Patient may have to reschedule his EGD and colonoscopy will be decided upon by Dr. Melendrez continue present supportive care measures Continue cardiac meds Continue medications as per psychiatry recommendation Continue GI and DVT prophylaxis Cardiothoracic surgery planning outpatient evaluation and if surgery is to be d one We will continue to follow. Prognosis is guarded. Time with Patient: Less than 30
[2022-07-30 20:10] LABS: Glucose,Whole Blood 224 mg/dL (70-110)
[2022-07-30] MEDS: INSULIN DETEMIR (LEVEMIR) 100 UNIT/ML SYR SQ SCH (21:22)
[2022-07-30] MEDS: QUEtiapine 25 MG TAB PO SCH (21:23)
[2022-07-30] MEDS: ATORVASTATIN 80 MG TAB PO SCH (21:23)
[2022-07-31 05:58] LABS: Glucose,Whole Blood 108 mg/dL (70-110)
[2022-07-31] MEDS: INSULIN ASPART (NovoLOG) 100 UNIT/ML VIAL SQ SCH ×4 (06:18→20:24)
[2022-07-31 07:42] LABS: Methylmalonic Acid 0.56 umol/L (<0.40)
[2022-07-31 08:28] LABS: Anisocytosis Slight; HCT 29.3 % (39.0-53.0); HGB 9.4 gm/dL (13.0-17.5); Hypochromasia Marked; MCH 23.4 pg (25.0-35.0); MCHC 31.9 g/dL (31.0-37.0); MCV 73.3 fL (80.0-100.0); Mean Platelet Volume 13.1; Microcytosis Moderate; Poikilocytosis Moderate; RDW 18.8 % (11.5-15.5)
[2022-07-31 08:46] LABS: Platelet Count 79 k/uL (150-450)
--- NOTE | 2022-07-31 09:18 | P.PN ---
Subjective Principal diagnosis: Chest pain with severe coronary disease most likely requiring CABG and altered mental status also. The patient seems much more lucid today even with sitters evaluation. 4 days ago, he had significant altered mental status delirium. Appreciate multiple consultants input. GI bleed is noted and he will have EGD/colonoscopy via surgery had no fever or chills. No nausea, vomiting or diarrhea at this point. He does state hunger but no overt pain. The patient has passed his modified barium swallow and will have EGD and colonoscopy on Wednesday. He needs clearance for this prior to CABG Objective - Vital Signs Vital signs: Vital Signs Temp 97.9 F 07/31/22 04:15 Pulse 83 07/31/22 04:15 Resp 16 07/31/22 04:15 BP 103/50 07/31/22 04:15 Pulse Ox 94 L 07/31/22 04:15 FiO2 Intake & Output 07/30/22 07/31/22 07/31/22 18:59 06:59 18:59 Intake Total 118 20 180 Balance 118 20 180 Intake: IV 20 Invasive Line 2 20 Oral 118 180 Other: Voiding Method Toilet # Voids 2 - Constitutional General appearance: Present: average body habitus - EENT Eyes: Absent: abnormal pupil - Neck Neck: Absent: lymphadenopathy - Respiratory Respiratory: bilateral: CTA - Cardiovascular Rhythm: regular Heart sounds: normal: S1, S2 Abnormal Heart Sounds: Absent: S3 Gallop - Gastrointestinal General gastrointestinal: Present: soft. Absent: tenderness - Integumentary Integumentary: Absent: cellulitis - Neurologic Neurologic: Present: CNII-XII intact - Musculoskeletal Musculoskeletal: Present: strength equal bilaterally - Labs CBC & Chem 7: 07/31/22 07:36 07/30/22 08:35 Labs: Abnormal Lab Results - Last 24 Hours (Table) 07/29/22 07/29/22 07/30/22 Range/Units 09:21 09:21 08:35 WBC 2.3 L (3.8-10.6) k/uL RBC 4.20 L (4.30-5.90) m/uL Hgb 9.8 L D (13.0-17.5) gm/dL Hct 31.2 L (39.0-53.0) % MCV 74.4 L (80.0-100.0) fL MCH 23.2 L (25.0-35.0) pg RDW 18.7 H (11.5-15.5) % Plt Count 93 L (150-450) k/uL POC Glucose (mg/dL) (70-110) mg/dL Albumin (PEP) 3.09 L (3.80-4.90) g/dL Methylmalonic Acid 0.56 H (<0.40) umol/L RBC Folate 823 H (280 - 791) ng/mL Free [place] LC, Quant 6.64 H (0.33-1.94) mg/dL Free Lambda LC, Quant 5.22 H (0.57-2.63) mg/dL 07/30/22 07/30/22 07/31/22 Range/Units 16:14 20:09 07:36 WBC 2.0 L (3.8-10.6) k/uL RBC 4.00 L (4.30-5.90) m/uL Hgb 9.4 L (13.0-17.5) gm/dL Hct 29.3 L (39.0-53.0) % MCV 73.3 L (80.0-100.0) fL MCH 23.4 L (25.0-35.0) pg RDW 18.8 H (11.5-15.5) % Plt Count 79 L (150-450) k/uL POC Glucose (mg/dL) 130 H 224 H (70-110) mg/dL Albumin (PEP) (3.80-4.90) g/dL Methylmalonic Acid (<0.40) umol/L RBC Folate (280 - 791) ng/mL Free [place] LC, Quant (0.33-1.94) mg/dL Free Lambda LC, Quant (0.57-2.63) mg/dL Assessment and Plan (1) Delirium Current Visit: Yes Status: Acute Code(s): R41.0 - DISORIENTATION, UNSPECIFIED SNOMED Code(s): 1527792 (2) Acute kidney injury Current Visit: Yes Status: Acute Code(s): N17.9 - ACUTE KIDNEY FAILURE, UNSPECIFIED SNOMED Code(s): 51719992 (3) Chest pain Current Visit: Yes Status: Acute Code(s): R07.9 - CHEST PAIN, UNSPECIFIED SNOMED Code(s): 82913222 (4) NSTEMI (non-ST elevated myocardial infarction) Current Visit: Yes Status: Acute Code(s): I21.4 - NON-ST ELEVATION (NSTEMI) MYOCARDIAL INFARCTION SNOMED Code(s): 07273634 (5) Acute coronary syndrome with high troponin Current Visit: No Status: Acute Code(s): I24.9 - ACUTE ISCHEMIC HEART DISEASE, UNSPECIFIED SNOMED Code(s): 198279843 (6) Diabetes Current Visit: No Status: Acute Code(s): E11.9 - TYPE 2 DIABETES MELLITUS WITHOUT COMPLICATIONS SNOMED Code(s): 10909250 (7) Hypertension Current Visit: No Status: Acute Code(s): I10 - ESSENTIAL (PRIMARY) HYPERTENSION SNOMED Code(s): 86811046 (8) GI bleed Current Visit: Yes Status: Acute Code(s): K92.2 - GASTROINTESTINAL HEMORRHAGE, UNSPECIFIED SNOMED Code(s): 65981134 Plan: Continue to follow. Await endoscopy and hopefully thoracic surgery. We'll continue to follow. Check CBC in a.m.
[2022-07-31 09:24] LABS: Albumin 3.5 g/dL (3.5-5.0); Calcium 8.1 mg/dL (8.4-10.2); Potassium 4.5 mmol/L (3.5-5.1); Total Protein 6.5 g/dL (6.3-8.2)
[2022-07-31] MEDS: EZETIMIBE 10 MG TAB PO SCH (09:31)
[2022-07-31] MEDS: SODIUM FERRIC GLUCONAT-SUCROSE 125 MG in SODIUM CHLORIDE 0.9% 100 ML IVPB SCH (09:31)
[2022-07-31] MEDS: ASPIRIN 81 MG PO SCH (09:31)
[2022-07-31] MEDS: ASCORBIC ACID 500 MG TAB PO SCH (09:31)
[2022-07-31] MEDS: METOPROLOL TARTRATE 25 MG TAB PO SCH ×2 (09:31→20:30)
[2022-07-31] MEDS: SPIRONOLACTONE 25 MG TAB PO SCH (09:31)
[2022-07-31] MEDS: PREGABALIN 100 MG CAP PO SCH ×3 (09:31→20:30)
[2022-07-31] MEDS: FUROSEMIDE 10 MG/ML 4 ML VIAL IV SCH (09:31)
[2022-07-31] MEDS: NITROGLYCERIN OINT 1 INCH/GM PACKET TOPICAL SCH ×2 (09:31→18:46)
[2022-07-31] MEDS: PANTOPRAZOLE 40 MG/10 ML VIAL IVP SCH ×2 (09:31→20:30)
--- NOTE | 2022-07-31 10:33 | P.PN ---
Subjective Patient is seen in follow-up for acute kidney injury. Renal function stable. Creatinine 1.19 today. Nonoliguric. Sitting up in chair. No active bleeding. No active complaints at this time. Vital signs are stable. General: No acute distress. HEENT: Head exam is unremarkable. On nasal cannula. LUNGS: No audible rhonchi or wheezes. HEART: Rate and Rhythm are regular. ABDOMEN: No distention. EXTREMITITES: No edema. Objective - Vital Signs Vital signs: Vital Signs Temp 97.6 F 07/31/22 08:00 Pulse 84 07/31/22 08:00 Resp 18 07/31/22 08:00 BP 114/68 07/31/22 08:00 Pulse Ox 95 07/31/22 08:00 FiO2 Intake & Output 07/30/22 07/31/22 07/31/22 18:59 06:59 18:59 Intake Total 118 20 180 Balance 118 20 180 Intake: IV 20 Invasive Line 2 20 Oral 118 180 Other: Voiding Method Toilet # Voids 2 - Labs CBC & Chem 7: 07/31/22 07:36 07/31/22 07:36 Labs: Abnormal Lab Results - Last 24 Hours (Table) 07/29/22 07/29/22 07/30/22 Range/Units 09:21 09:21 16:14 WBC (3.8-10.6) k/uL RBC (4.30-5.90) m/uL Hgb (13.0-17.5) gm/dL Hct (39.0-53.0) % MCV (80.0-100.0) fL MCH (25.0-35.0) pg RDW (11.5-15.5) % Plt Count (150-450) k/uL Sodium (137-145) mmol/L Chloride (98-107) mmol/L Carbon Dioxide (22-30) mmol/L BUN (9-20) mg/dL Glucose (74-99) mg/dL POC Glucose (mg/dL) 130 H (70-110) mg/dL Calcium (8.4-10.2) mg/dL Albumin (PEP) 3.09 L (3.80-4.90) g/dL Methylmalonic Acid 0.56 H (<0.40) umol/L RBC Folate 823 H (280 - 791) ng/mL 07/30/22 07/31/22 07/31/22 Range/Units 20:09 07:36 07:36 WBC 2.0 L (3.8-10.6) k/uL RBC 4.00 L (4.30-5.90) m/uL Hgb 9.4 L (13.0-17.5) gm/dL Hct 29.3 L (39.0-53.0) % MCV 73.3 L (80.0-100.0) fL MCH 23.4 L (25.0-35.0) pg RDW 18.8 H (11.5-15.5) % Plt Count 79 L (150-450) k/uL Sodium 133 L (137-145) mmol/L Chloride 90 L (98-107) mmol/L Carbon Dioxide 37 H (22-30) mmol/L BUN 28 H (9-20) mg/dL Glucose 104 H (74-99) mg/dL POC Glucose (mg/dL) 224 H (70-110) mg/dL Calcium 8.1 L (8.4-10.2) mg/dL Albumin (PEP) (3.80-4.90) g/dL Methylmalonic Acid (<0.40) umol/L RBC Folate (280 - 791) ng/mL Assessment and Plan Plan: Assessment: 1. Acute kidney injury secondary to hemodynamic ATN. Also received IV contrast on 07/26/2021 for cardiac catheterization and again July [address] abdomen. Renal function stable - creatinine 1.19 today. Baseline creatinine near 1. 1+ protein on UA. No hydronephrosis noted on CAT scan. 2. Coronary artery disease status post cardiac catheterization on 07/26/2022 wi th multivessel disease. CABG pending. 3. Anemia. Status post blood transfusion. Improved. Iron deficiency noted. Barium swallow normal. Endoscopy pending. Hemoglobin 9.4. 4. Diabetes mellitus. 5. Hyperkalemia secondary to acute kidney injury and lisinopril. Improved. 6. Cardiomyopathy. Ejection fraction 35%. 7. Volume overload. Pleural effusions noted on imaging. Plan: Maintain IV Lasix. Maintain IV iron. Avoid nephrotoxins. Continue to monitor renal function and urine output.
[2022-07-31 11:34] LABS: Glucose,Whole Blood 163 mg/dL (70-110)
--- NOTE | 2022-07-31 12:04 | P.PN ---
Progress Note - Text Progress Note Date: 07/31/22 The patient passed his modified barium swallow study. He'll be scheduled for upper and lower endoscopy on Wednesday.
--- NOTE | 2022-07-31 12:33 | P.PN ---
Subjective Progress Note Date: 07/31/22 HISTORY OF PRESENT ILLNESS: This is a 66-year-old male patient of Dr. Sindi Montes De Oca with a past medical history significant for coronary artery disease with previous stenting, hypertension, hyperlipidemia, and former nicotine dependence. Patient has had several hospitalizations regarding coronary artery disease with cardiac catheterizations as noted below. Patient states that last evening he developed chest pain that was really bad while he was just walking in his house. He also complains of numbness in the bilateral arms and pain in the left arm. He states he had some lightheadedness and dizziness, difficulty breathing. Patient also states he had dark urine. He states the pain is exactly like he had previous to recent stenting. He states he took 2 nitroglycerin with no improvement. He also complains of his abdomen being hard and hurts on the side. His last bowel mov ement was yesterday and he does state he sometimes has blood in the stool sometimes quite a bit. He is noted to have a low hemoglobin since May of this year and he states he has not had this worked up. Patient pain when he presented was 17/02 and now states it's -06/05 * EKG reveals sinus mechanism with ST depression * Chest xray small bilateral pleural effusions. Associated atelectasis versus pneumonia. Prominent markings may represent pulmonary vascular congestion * Laboratory data: WBC 3.4, hemoglobin 8.8, platelet count 80. Initial BUN and creatinine 28 and 0.95 now at 24 and 1.31. Troponin 0.066, 6.390, 11.6 * Current home cardiac medications include aspirin 325 mg daily, atorvastatin 80 mg at bedtime, lisinopril 2.5 mg daily, metoprolol tartrate 12.5 mg twice daily, Nitrostat as needed, Effient 10 mg daily. * Cardiac catheterization history: June 2018 revealing diffuse coronary artery disease through the total occlusion of the distal RCA with proximal 70% stenosis in the midportion. 70-80% stenosis of the mid circumflex. The stents in the proximal RCA and circumflex are open. The LAD has about a 30- 40% lesion in the midportion. The patient underwent stenting of the mid left circumflex. Attempted balloon angioplasty of the right coronary artery. * Cardiac catheterization 06/17/[address] Montes De Oca revealed severe disease involving the proximal LAD, patient underwent successful stenting of the proximal LAD by Dr. Mullins. * Cardiac catheterization 06/27/[address] Mullins revealed patent stent in the proximal LAD. Intermediate lesion involving the very proximal LAD right after the takeoff from the left main appears to be in the range of 60%. Intermediate disease involving the first obtuse marginal branch which is a large caliber vessel. Mildly elevated left-sided filling pressures. Plan was for medical management and absence of any high-grade lesions. * Echocardiogram 06/27/2022: EF 30-35% 07/29/2022 Patient is status post cardiac catheterization on 07/26/2022 revealing severe stenosis involving the ostium of the LAD and the left circumflex. Chronically occluded right coronary artery. Collaterals from the left system. Elevated LVE DP. Evaluation for CABG was recommended. Patient examined this morning at the bedside. Patient has a director of patient safety present. Patient denies any chest pain or pressure. He denies shortness of breath. Patient is scheduled for EGD and colonoscopy tomorrow with general surgery. 07/30/2022 Patient examined this morning at the bedside. Patient underwent speech evaluation yesterday in which they were unable to fully rule out aspiration at the bedside. Patient requires modified barium swallow so his bowel prep was unable to be completed yesterday. Hence, his EGD and colonoscopy for today have been delayed. Patient denies any chest pain or pressure. He denies any shortness of breath. Vital signs are stable. 07/31/2022 Patient examined at this point. Patient is sitting up in the chair. He denies chest pain or pressure. Denies shortness of breath. Nephrology is following. Patient remains on IV lasix daily. Patient underwent modified barium swallow yesterday. EGD and colonoscopy has been scheduled for Wednesday with Dr. Melendrez. avionics repair technician remains at bedside. Vital signs are stable. PHYSICAL EXAM: VITAL SIGNS: Reviewed. GENERAL: Well-developed in no acute distress. NECK: Supple. No JVD or thyromegaly LUNGS: Respirations even and unlabored. Lungs essentially clear to auscultation bilaterally. HEART: Regular rate and rhythm. S1 and S2 heard. EXTREMITIES: Normal range of motion. No clubbing or cyanosis. Peripheral pulses intact. No lower extremity edema ASSESSMENT: Non-STEMI, as well as cardiac catheterization with results as above Anemia, EGD and colonoscopy pending Coronary artery disease with previous stenting to the proximal RCA and circumflex Known chronic total occlusion of the distal RCA Ischemic cardiomyopathy, ejection fraction 30-35% Hypertension Hyperlipidemia Diabetes Pancytopenia Acute kidney injury Former nicotine dependence Depression with suicidal ideation PLAN: Continue current cardiac medications EGD and colonoscopy scheduled for Wednesday CT surgery following for CABG. Timing to be determined Further recommendations pending patient course Nurse practitioner note has been reviewed by physician. Signing provider agrees with the documented findings, assessment, and plan of care. Objective - Vital Signs Vital signs: Vital Signs Temp 97.6 F 07/31/22 08:00 Pulse 84 07/31/22 08:00 Resp 18 07/31/22 08:00 BP 114/68 07/31/22 08:00 Pulse Ox 95 07/31/22 08:00 FiO2 Intake & Output 07/30/22 07/31/22 07/31/22 18:59 06:59 18:59 Intake Total 118 20 180 Balance 118 20 180 Intake: IV 20 Invasive Line 2 20 Oral 118 180 Other: Voiding Method Toilet # Voids 2 - Labs CBC & Chem 7: 07/31/22 07:36 07/31/22 07:36 Labs: Abnormal Lab Results - Last 24 Hours (Table) 07/29/22 07/29/22 07/30/22 Range/Units 09:21 09:21 16:14 WBC (3.8-10.6) k/uL RBC (4.30-5.90) m/uL Hgb (13.0-17.5) gm/dL Hct (39.0-53.0) % MCV (80.0-100.0) fL MCH (25.0-35.0) pg RDW (11.5-15.5) % Plt Count (150-450) k/uL Sodium (137-145) mmol/L Chloride (98-107) mmol/L Carbon Dioxide (22-30) mmol/L BUN (9-20) mg/dL Glucose (74-99) mg/dL POC Glucose (mg/dL) 130 H (70-110) mg/dL Calcium (8.4-10.2) mg/dL Albumin (PEP) 3.09 L (3.80-4.90) g/dL Methylmalonic Acid 0.56 H (<0.40) umol/L RBC Folate 823 H (280 - 791) ng/mL 07/30/22 07/31/22 07/31/22 Range/Units 20:09 07:36 07:36 WBC 2.0 L (3.8-10.6) k/uL RBC 4.00 L (4.30-5.90) m/uL Hgb 9.4 L (13.0-17.5) gm/dL Hct 29.3 L (39.0-53.0) % MCV 73.3 L (80.0-100.0) fL MCH 23.4 L (25.0-35.0) pg RDW 18.8 H (11.5-15.5) % Plt Count 79 L (150-450) k/uL Sodium 133 L (137-145) mmol/L Chloride 90 L (98-107) mmol/L Carbon Dioxide 37 H (22-30) mmol/L BUN 28 H (9-20) mg/dL Glucose 104 H (74-99) mg/dL POC Glucose (mg/dL) 224 H (70-110) mg/dL Calcium 8.1 L (8.4-10.2) mg/dL Albumin (PEP) (3.80-4.90) g/dL Methylmalonic Acid (<0.40) umol/L RBC Folate (280 - 791) ng/mL 07/31/22 Range/Units 11:32 WBC (3.8-10.6) k/uL RBC (4.30-5.90) m/uL Hgb (13.0-17.5) gm/dL Hct (39.0-53.0) % MCV (80.0-100.0) fL MCH (25.0-35.0) pg RDW (11.5-15.5) % Plt Count (150-450) k/uL Sodium (137-145) mmol/L Chloride (98-107) mmol/L Carbon Dioxide (22-30) mmol/L BUN (9-20) mg/dL Glucose (74-99) mg/dL POC Glucose (mg/dL) 163 H (70-110) mg/dL Calcium (8.4-10.2) mg/dL Albumin (PEP) (3.80-4.90) g/dL Methylmalonic Acid (<0.40) umol/L RBC Folate (280 - 791) ng/mL
[2022-07-31] MEDS ORDERED: CYANOCOBALAMIN 1,000 MCG/ML 1 ML VIAL IM ONE (13:29)
[2022-07-31] MEDS: FERROUS SULFATE 325 MG TAB PO SCH (13:53)
--- NOTE | 2022-07-31 14:25 | US ---
EXAMINATION TYPE: US carotid duplex BILAT DATE OF EXAM: 07/31/2022 COMPARISON: NONE CLINICAL HISTORY: Pre-op open heart. TECHNIQUE: Carotid duplex ultrasound examination. Indirect Doppler criteria was utilized. FINDINGS: EXAM MEASUREMENTS: RIGHT: Peak Systolic Velocity (PSV) cm/sec ----- Right CCA: 52.6 ----- Right ICA: 73.5 ----- Right ECA: 200.0 ICA/CCA ratio: 1.4 RIGHT: End Diastole cm/sec ----- Right CCA: 12.0 ----- Right ICA: 18.6 ----- Right ECA: 0.0 LEFT: Peak Systolic Velocity (PSV) cm/sec ----- Left CCA: 76.3 ----- Left ICA: 96.1 ----- Left ECA: 77.4 ICA/CCA ratio: 1.3 LEFT: End Diastole cm/sec ----- Left CCA: 19.0 ----- Left ICA: 35.5 ----- Left ECA: 10.2 VERTEBRALS (direction of flow): Right Vertebral: Antegrade Left Vertebral: Antegrade ENVIRONMENTAL PROTECTION GEOLOGIST NOTES: Stenosis visualized in the ICA prx. No significant velocity elevations in the ICA . Right ECA velocity elevations without stenosis seen, possible tortuous vessel. IMPRESSION: 1. No significant hemodynamic stenosis of the carotid bifurcations. Extensive atherosclerotic plaque within the proximal ICA on grayscale imaging. Would recommend a CTA of the neck for further evaluatio n. Criteria for Assigning % of Stenosis / Diameter reduction (Estimation based on the indirect measurements of the internal carotid artery velocities (ICA PSV). 1. Normal (no stenosis)=ICA PSV < 125 cm/s: ratio < 2.0: ICA EDV<40 cm/s. 2. Less than 50% stenosis=ICA PSV < 125 cm/s: ratio < 2.0: ICA EDV<40 cm/s. 3. 50 to 69% stenosis=ICA PSV of 125 to 230 cm/s: ration 2.0 ? 4.0: ICA EDV 40-100 cm/s. 4. Greater than 70% stenosis to near occlusion= ICA PSV > 230 cm/s: ratio > 4.0: ICA EDV > 100 cm/s. 5. Near occlusion= ICA PSV velocities may be low or undetectable: variable ratio and ICA EDV. 6. Total occlusion=unable to detect flow.
--- NOTE | 2022-07-31 15:27 | US ---
EXAMINATION TYPE: US vein mapping BILAT DATE OF EXAM: 07/31/2022 1:24 PM COMPARISON: NONE CLINICAL HISTORY: Pre-op open heart. SIDE PERFORMED: Bilateral TECHNIQUE: Lower extremity saphenous vein is examined and measured utilizing real time linear array sonography. DUPLEX FINDINGS: Greater Saphenous: Color flow seen Lesser Saphenous: Color flow seen Measurements in mm: Right Greater Saphenous: Groin: 3.2 mm High Thigh: 2.1 mm Mid Thigh: Not visualized Above Knee: Not visualized Knee: Not visualized Below Knee: Not visualized Mid Calf: Not visualized At Ankle: Not visualized Right Lesser Saphenous: Knee: 2.8 mm Below Knee: 4.8 mm Mid Calf: 2.8 mm Left Greater Saphenous: Groin: 3.4 mm High Thigh: 1.7 mm Mid Thigh: 1.7 mm Above Knee: 2.1 mm Knee: Not visualized Below Knee: Not visualized Mid Calf: Not visualized At Ankle: Not visualized Left Lesser Saphenous: Knee: 3.6 mm Below Knee: 3.0 mm Mid Calf: 2.9 mm IMPRESSION: 1. Bilateral GSV and LSV visualized measurements listed above. 2. Performing surgeon to determine viability as conduit.
--- NOTE | 2022-07-31 15:31 | US ---
EXAMINATION TYPE: Pre-Operative Non-Invasive Evaluation of the hand for Potential Radial Artery Leonila , Measurements only DATE OF EXAM: 07/31/2022 1:24 PM CLINICAL HISTORY: Pre-op open heart. SIDE PERFORMED: Left TECHNIQUE: Radial artery is measured utilizing real time linear array sonography. Dominant hand: Right Duplex Findings: Radial Artery: Color flow seen Measurements in mm, transverse view: Left Radial: Proximal: 2.6 mm Mid: 1.9 mm Distal: 2.7 mm Incidental variant: Radial artery bifurcates from the brachial artery proximally at upper arm. IMPRESSION: 1. Left radial artery measurements listed above. 2. Performing surgeon to determine viability as conduit.
--- NOTE | 2022-07-31 15:54 | P.PN ---
Subjective Progress Note Date: 07/31/22 Principal diagnosis: pancytopenia Upon visit today patient is Sitting in bedside chair. Family is at bedside. Patient reports feeling well today. Patient denies pain. Denies shortness of breath chest pain and dizziness. Denies any episodes of bleeding. Patient was scheduled for colonoscopy yesterday but there was concern for aspiration while he was drinking the prep. Barium swallow study was obtained which was a normal study. Colonoscopy is rescheduled for this Wednesday. No other reported complains of this time Objective - Vital Signs Vital signs: Vital Signs Temp 97.6 F 07/31/22 08:00 Pulse 85 07/31/22 12:00 Resp 18 07/31/22 14:00 BP 114/65 07/31/22 12:00 Pulse Ox 97 07/31/22 12:00 FiO2 Intake & Output 07/30/22 07/31/22 07/31/22 18:59 06:59 18:59 Intake Total 118 20 360 Balance 118 20 360 Intake: IV 20 Invasive Line 2 20 Oral 118 360 Other: Voiding Method Toilet # Voids 2 - Constitutional General appearance: Present: average body habitus, no acute distress - EENT Eyes: Present: anicteric sclerae, EOMI ENT: Present: hearing grossly normal - Respiratory Details: Breathing is even and unlabored - Cardiovascular Details: Skin is warm and dry - Gastrointestinal General gastrointestinal: Present: soft. Absent: tenderness - Integumentary Integumentary: Present: normal - Neurologic Neurologic Comment(s): Grossly intact - Musculoskeletal Musculoskeletal: Present: strength equal bilaterally - Psychiatric Psychiatric: Present: A&O x's 3, appropriate affect, intact judgment & insight - Labs CBC & Chem 7: 07/31/22 07:36 07/31/22 07:36 Labs: Abnormal Lab Results - Last 24 Hours (Table) 07/29/22 07/30/22 07/30/22 Range/Units 09:21 16:14 20:09 WBC (3.8-10.6) k/uL RBC (4.30-5.90) m/uL Hgb (13.0-17.5) gm/dL Hct (39.0-53.0) % MCV (80.0-100.0) fL MCH (25.0-35.0) pg RDW (11.5-15.5) % Plt Count (150-450) k/uL Sodium (137-145) mmol/L Chloride (98-107) mmol/L Carbon Dioxide (22-30) mmol/L BUN (9-20) mg/dL Glucose (74-99) mg/dL POC Glucose (mg/dL) 130 H 224 H (70-110) mg/dL Calcium (8.4-10.2) mg/dL Methylmalonic Acid 0.56 H (<0.40) umol/L RBC Folate 823 H (280 - 791) ng/mL 07/31/22 07/31/22 07/31/22 Range/Units 07:36 07:36 11:32 WBC 2.0 L (3.8-10.6) k/uL RBC 4.00 L (4.30-5.90) m/uL Hgb 9.4 L (13.0-17.5) gm/dL Hct 29.3 L (39.0-53.0) % MCV 73.3 L (80.0-100.0) fL MCH 23.4 L (25.0-35.0) pg RDW 18.8 H (11.5-15.5) % Plt Count 79 L (150-450) k/uL Sodium 133 L (137-145) mmol/L Chloride 90 L (98-107) mmol/L Carbon Dioxide 37 H (22-30) mmol/L BUN 28 H (9-20) mg/dL Glucose 104 H (74-99) mg/dL POC Glucose (mg/dL) 163 H (70-110) mg/dL Calcium 8.1 L (8.4-10.2) mg/dL Methylmalonic Acid (<0.40) umol/L RBC Folate (280 - 791) ng/mL Assessment and Plan (1) Pancytopenia Current Visit: Yes Status: Acute Priority: High Code(s): D61.818 - OTHER PANCYTOPENIA SNOMED Code(s): 189722182 Plan: Pancytopenia -Hemoglobin 9.4, platelets 79,000, WBC 2.0. 1 unit PRBC given on 07/28 -Chart review shows mild anemia and thrombocytopenia for at least 8 years, this has progressed significantly since 2022 and now includes leukopenia -Medication list reviewed, no significant marrow suppressing agents seen -CT AP and CT head, no evidence of masses or unusual findings in the bones -Pancytopenia workup ordered. SPEP and immunofixation negative for monoclonal paraproteins. Serum kappa light chain and lambda light chain ratio 1.27. Hemolytic anemia workup negative. Iron studies consistent with iron deficiency anemia. IV iron infusions ordered. B12 borderline low, MMA elevated. Will start patient on supplemental B12 injections. -Patient is not current on age-related cancer screenings. Colonoscopy scheduled for Wednesday. PSA pending. -Transfuse for hemoglobin less than 7, platelets less than 10,000 or if patient is symptomatic. No acute intervention for WBC of 2.0, ANC is adequate at 2100 -Further workup will be recommended based on testing results. attests: I have performed H&P and developed impression and plan of care for patient, discussed with dictator. I agree with dictated note, documented as a scribe
[2022-07-31 16:19] LABS: Glucose,Whole Blood 137 mg/dL (70-110)
--- NOTE | 2022-07-31 17:22 | P.PN ---
Subjective Progress Note Date: 07/31/22 Patient was seen for a follow-up. Patient is sitting comfortably in the recliner. Denies any headache. Patient is awaiting EGD and colonoscopy to be done on Wednesday. He is also scheduled for open heart surgery in the near future. Neurologically patient doing well. Offers no complaints. Patient feels he is back to baseline. Telemetry monitoring showing sinus rhythm. No other arrhythmia. Objective - Vital Signs Vital signs: Vital Signs Temp 97.6 F 07/31/22 08:00 Pulse 85 07/31/22 12:00 Resp 16 07/31/22 16:00 BP 116/59 07/31/22 16:00 Pulse Ox 98 07/31/22 16:00 FiO2 Intake & Output 07/30/22 07/31/22 07/31/22 18:59 06:59 18:59 Intake Total 118 20 360 Balance 118 20 360 Intake: IV 20 Invasive Line 2 20 Oral 118 360 Other: Voiding Method Toilet # Voids 2 - Exam On examination patient knows it is July and the year is and that he is in [facility] in [place]. Speech-language functions are normal. On cranial nerve examination, face is symmetric, tongue protrudes the midline. Visual nelson are full. Extraocular muscles are intact. On muscle strength testing, there is no pronator drift. There is no tremors noted. No metabolic jerks seen. No ataxia. - Labs CBC & Chem 7: 07/31/22 07:36 07/31/22 07:36 Labs: Abnormal Lab Results - Last 24 Hours (Table) 07/29/22 07/30/22 07/31/22 Range/Units 09:21 20:09 07:36 WBC 2.0 L (3.8-10.6) k/uL RBC 4.00 L (4.30-5.90) m/uL Hgb 9.4 L (13.0-17.5) gm/dL Hct 29.3 L (39.0-53.0) % MCV 73.3 L (80.0-100.0) fL MCH 23.4 L (25.0-35.0) pg RDW 18.8 H (11.5-15.5) % Plt Count 79 L (150-450) k/uL Sodium (137-145) mmol/L Chloride (98-107) mmol/L Carbon Dioxide (22-30) mmol/L BUN (9-20) mg/dL Glucose (74-99) mg/dL POC Glucose (mg/dL) 224 H (70-110) mg/dL Calcium (8.4-10.2) mg/dL Methylmalonic Acid 0.56 H (<0.40) umol/L RBC Folate 823 H (280 - 791) ng/mL 07/31/22 07/31/22 07/31/22 Range/Units 07:36 11:32 16:17 WBC (3.8-10.6) k/uL RBC (4.30-5.90) m/uL Hgb (13.0-17.5) gm/dL Hct (39.0-53.0) % MCV (80.0-100.0) fL MCH (25.0-35.0) pg RDW (11.5-15.5) % Plt Count (150-450) k/uL Sodium 133 L (137-145) mmol/L Chloride 90 L (98-107) mmol/L Carbon Dioxide 37 H (22-30) mmol/L BUN 28 H (9-20) mg/dL Glucose 104 H (74-99) mg/dL POC Glucose (mg/dL) 163 H 137 H (70-110) mg/dL Calcium 8.1 L (8.4-10.2) mg/dL Methylmalonic Acid (<0.40) umol/L RBC Folate (280 - 791) ng/mL Assessment and Plan Assessment: * Altered mental status, likely due to acute delirium, with component of metabolic encephalopathy. Reasons multifactorial as mentioned below. * Acute non-STEMI * Pancytopenia, anemia status post transfusion * Hypercapnia * Acute GI bleed * Recent episode of hypoglycemia with blood sugar 47 at 5:26 AM today. * Coronary artery disease * Bilateral pleural effusion, moderate right, small left side. * Hypertension * Hyperlipidemia * Diabetes * X tobacco use Plan: * Patient's mentation is back to baseline. His examination is nonfocal, and his myoclonic jerks have also resolved. * CT head showed no acute process. * Carotid Doppler revealed no significant hemodynamic stenosis of the carotid bifurcations. Extensive atherosclerotic plaque within the proximal ICA on grayscale imaging. Would recommend CTA of the neck for further evaluation. We will defer to vascular surgery. * Continue aspirin 81 mg daily. * Hemoglobin A1c 7.7. Recommend optimize control of diabetes to target A1c < 7.0. Avoid hypoglycemia. * Patient is undergoing EGD and colonoscopy on 08/03/2022. * Patient also being considered for bypass surgery. * Treatment of various medical conditions as per IM and other specialties. * Neurology will sign off. Please reconsult neurology if any concerns.
[2022-07-31 20:10] LABS: Glucose,Whole Blood 136 mg/dL (70-110)
[2022-07-31] MEDS: QUEtiapine 25 MG TAB PO SCH (20:30)
[2022-07-31] MEDS: INSULIN DETEMIR (LEVEMIR) 100 UNIT/ML SYR SQ SCH (20:30)
[2022-07-31] MEDS: ATORVASTATIN 80 MG TAB PO SCH (20:30)
[2022-08-01] MEDS: NITROGLYCERIN OINT 1 INCH/GM PACKET TOPICAL SCH ×3 (00:11→15:14)
[2022-08-01 06:19] LABS: Glucose,Whole Blood 69 mg/dL (70-110)
[2022-08-01] MEDS: INSULIN ASPART (NovoLOG) 100 UNIT/ML VIAL SQ SCH ×4 (06:28→21:14)
[2022-08-01 06:52] LABS: Glucose,Whole Blood 136 mg/dL (70-110)
[2022-08-01 08:26] LABS: Anisocytosis Slight; HCT 30.6 % (39.0-53.0); HGB 9.6 gm/dL (13.0-17.5); Hypochromasia Moderate; MCH 23.3 pg (25.0-35.0); MCHC 31.2 g/dL (31.0-37.0); MCV 74.5 fL (80.0-100.0); Mean Platelet Volume 12.4; Microcytosis Moderate; Poikilocytosis Slight; RBC 4.11 m/uL (4.30-5.90); RDW 19.2 % (11.5-15.5); WBC 1.7 k/uL (3.8-10.6)
[2022-08-01] MEDS: ASPIRIN 81 MG PO SCH (08:31)
[2022-08-01] MEDS: PANTOPRAZOLE 40 MG/10 ML VIAL IVP SCH ×2 (08:31→21:15)
[2022-08-01] MEDS: PREGABALIN 100 MG CAP PO SCH ×3 (08:31→21:15)
[2022-08-01] MEDS: ASCORBIC ACID 500 MG TAB PO SCH (08:31)
[2022-08-01] MEDS: METOPROLOL TARTRATE 25 MG TAB PO SCH ×2 (08:31→21:15)
[2022-08-01] MEDS: FUROSEMIDE 10 MG/ML 4 ML VIAL IV SCH (08:31)
[2022-08-01] MEDS: SPIRONOLACTONE 25 MG TAB PO SCH (08:31)
[2022-08-01] MEDS: EZETIMIBE 10 MG TAB PO SCH (08:31)
[2022-08-01 08:51] LABS: Platelet Count 82 k/uL (150-450)
--- NOTE | 2022-08-01 09:44 | P.PN ---
Subjective Progress Note Date: 08/01/22 Principal diagnosis: GI bleed Patient sitting up in a chair. Doing well. Denies pain. Tolerating regular diet. Hemoglobin 9.4. Denies rectal bleeding today. Objective - Vital Signs Vital signs: Vital Signs Temp 98 F 08/01/22 08:00 Pulse 89 08/01/22 08:00 Resp 16 08/01/22 08:00 BP 117/59 08/01/22 08:00 Pulse Ox 96 08/01/22 08:00 FiO2 Intake & Output 07/31/22 08/01/22 08/01/22 18:59 06:59 18:59 Intake Total 540 620 Output Total 100 Balance 540 620 -100 Intake: IV 40 Invasive Line 1 20 Invasive Line 2 20 Oral 540 580 Output: Urine 100 Other: Voiding Method Toilet # Voids 0 - Exam Abdomen: Soft, nontender, nondistended - Labs CBC & Chem 7: 08/01/22 08:03 07/31/22 07:36 Labs: Abnormal Lab Results - Last 24 Hours (Table) 07/31/22 07/31/22 07/31/22 Range/Units 11:32 16:17 20:09 WBC (3.8-10.6) k/uL RBC (4.30-5.90) m/uL Hgb (13.0-17.5) gm/dL Hct (39.0-53.0) % MCV (80.0-100.0) fL MCH (25.0-35.0) pg RDW (11.5-15.5) % Plt Count (150-450) k/uL POC Glucose (mg/dL) 163 H 137 H 136 H (70-110) mg/dL 08/01/22 08/01/22 08/01/22 Range/Units 06:17 06:51 08:03 WBC 1.7 L (3.8-10.6) k/uL RBC 4.11 L (4.30-5.90) m/uL Hgb 9.6 L (13.0-17.5) gm/dL Hct 30.6 L (39.0-53.0) % MCV 74.5 L (80.0-100.0) fL MCH 23.3 L (25.0-35.0) pg RDW 19.2 H (11.5-15.5) % Plt Count 82 L (150-450) k/uL POC Glucose (mg/dL) 69 L 136 H (70-110) mg/dL Assessment and Plan (1) GI bleed Narrative/Plan: 66-year-old male with GI bleed. He will the 9.4. Begin clear liquids and bowel prep tomorrow for upper and lower endoscopy on Wednesday. Current Visit: Yes Status: Acute Code(s): K92.2 - GASTROINTESTINAL HEMORRHAGE, UNSPECIFIED SNOMED Code(s): 91842425
--- NOTE | 2022-08-01 10:00 | P.PN ---
Subjective Progress Note Date: 08/01/22 HISTORY OF PRESENT ILLNESS: This is a 66-year-old male patient of Dr. Sindi Montes De Oca with a past medical history significant for coronary artery disease with previous stenting, hypertension, hyperlipidemia, and former nicotine dependence. Patient has had several hospitalizations regarding coronary artery disease with cardiac catheterizations as noted below. Patient states that last evening he developed chest pain that was really bad while he was just walking in his house. He also complains of numbness in the bilateral arms and pain in the left arm. He states he had some lightheadedness and dizziness, difficulty breathing. Patient also states he had dark urine. He states the pain is exactly like he had previous to recent stenting. He states he took 2 nitroglycerin with no improvement. He also complains of his abdomen being hard and hurts on the side. His last bowel mov ement was yesterday and he does state he sometimes has blood in the stool sometimes quite a bit. He is noted to have a low hemoglobin since May of this year and he states he has not had this worked up. Patient pain when he presented was 17/02 and now states it's -06/05 * EKG reveals sinus mechanism with ST depression * Chest xray small bilateral pleural effusions. Associated atelectasis versus pneumonia. Prominent markings may represent pulmonary vascular congestion * Laboratory data: WBC 3.4, hemoglobin 8.8, platelet count 80. Initial BUN and creatinine 28 and 0.95 now at 24 and 1.31. Troponin 0.066, 6.390, 11.6 * Current home cardiac medications include aspirin 325 mg daily, atorvastatin 80 mg at bedtime, lisinopril 2.5 mg daily, metoprolol tartrate 12.5 mg twice daily, Nitrostat as needed, Effient 10 mg daily. * Cardiac catheterization history: June 2018 revealing diffuse coronary artery disease through the total occlusion of the distal RCA with proximal 70% stenosis in the midportion. 70-80% stenosis of the mid circumflex. The stents in the proximal RCA and circumflex are open. The LAD has about a 30- 40% lesion in the midportion. The patient underwent stenting of the mid left circumflex. Attempted balloon angioplasty of the right coronary artery. * Cardiac catheterization 06/17/[address] Montes De Oca revealed severe disease involving the proximal LAD, patient underwent successful stenting of the proximal LAD by Dr. Mullins. * Cardiac catheterization 06/27/[address] Mullins revealed patent stent in the proximal LAD. Intermediate lesion involving the very proximal LAD right after the takeoff from the left main appears to be in the range of 60%. Intermediate disease involving the first obtuse marginal branch which is a large caliber vessel. Mildly elevated left-sided filling pressures. Plan was for medical management and absence of any high-grade lesions. * Echocardiogram 06/27/2022: EF 30-35% 07/29/2022 Patient is status post cardiac catheterization on 07/26/2022 revealing severe stenosis involving the ostium of the LAD and the left circumflex. Chronically occluded right coronary artery. Collaterals from the left system. Elevated LVE DP. Evaluation for CABG was recommended. Patient examined this morning at the bedside. Patient has a consumer safety inspector present. Patient denies any chest pain or pressure. He denies shortness of breath. Patient is scheduled for EGD and colonoscopy tomorrow with general surgery. 07/30/2022 Patient examined this morning at the bedside. Patient underwent speech evaluation yesterday in which they were unable to fully rule out aspiration at the bedside. Patient requires modified barium swallow so his bowel prep was unable to be completed yesterday. Hence, his EGD and colonoscopy for today have been delayed. Patient denies any chest pain or pressure. He denies any shortness of breath. Vital signs are stable. 07/31/2022 Patient examined at this point. Patient is sitting up in the chair. He denies chest pain or pressure. Denies shortness of breath. Nephrology is following. Patient remains on IV lasix daily. Patient underwent modified barium swallow yesterday. EGD and colonoscopy has been scheduled for Wednesday with Dr. Melendrez. county coroner remains at bedside. Vital signs are stable. 08/01/2022 Patient examined this morning. Patient is sitting up in the chair. Patient denies chest pain or pressure. He denies shortness of breath. Patient is to begin his bowel prep tomorrow. He is scheduled for EGD and colonoscopy on Wednesday. Vital signs are stable. He remains on IV Lasix 40 mg daily per nephrology. PHYSICAL EXAM: VITAL SIGNS: Reviewed. GENERAL: Well-developed in no acute distress. NECK: Supple. No JVD or thyromegaly LUNGS: Respirations even and unlabored. Lungs essentially clear to auscultation bilaterally. HEART: Regular rate and rhythm. S1 and S2 heard. EXTREMITIES: Normal range of motion. No clubbing or cyanosis. Peripheral pulses intact. 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 Await kidney function from this morning. EGD and colonoscopy scheduled for Wednesday CT surgery following for CABG. Timing to be determined Further recommendations pending patient course Nurse practitioner note has been reviewed by physician. Signing provider agrees with the documented findings, assessment, and plan of care. Objective - Vital Signs Vital signs: Vital Signs Temp 98 F 08/01/22 08:00 Pulse 89 08/01/22 08:00 Resp 16 08/01/22 08:00 BP 117/59 08/01/22 08:00 Pulse Ox 96 08/01/22 08:00 FiO2 Intake & Output 07/31/22 08/01/22 08/01/22 18:59 06:59 18:59 Intake Total 540 620 Output Total 100 Balance 540 620 -100 Intake: IV 40 Invasive Line 1 20 Invasive Line 2 20 Oral 540 580 Output: Urine 100 Other: Voiding Method Toilet # Voids 0 - Labs CBC & Chem 7: 08/01/22 08:03 07/31/22 07:36 Labs: Abnormal Lab Results - Last 24 Hours (Table) 07/31/22 07/31/22 07/31/22 Range/Units 11:32 16:17 20:09 WBC (3.8-10.6) k/uL RBC (4.30-5.90) m/uL Hgb (13.0-17.5) gm/dL Hct (39.0-53.0) % MCV (80.0-100.0) fL MCH (25.0-35.0) pg RDW (11.5-15.5) % Plt Count (150-450) k/uL POC Glucose (mg/dL) 163 H 137 H 136 H (70-110) mg/dL 08/01/22 08/01/22 08/01/22 Range/Units 06:17 06:51 08:03 WBC 1.7 L (3.8-10.6) k/uL RBC 4.11 L (4.30-5.90) m/uL Hgb 9.6 L (13.0-17.5) gm/dL Hct 30.6 L (39.0-53.0) % MCV 74.5 L (80.0-100.0) fL MCH 23.3 L (25.0-35.0) pg RDW 19.2 H (11.5-15.5) % Plt Count 82 L (150-450) k/uL POC Glucose (mg/dL) 69 L 136 H (70-110) mg/dL
[2022-08-01 10:50] LABS: Potassium 4.5 mmol/L (3.5-5.1)
[2022-08-01 11:29] LABS: Glucose,Whole Blood 220 mg/dL (70-110)
--- NOTE | 2022-08-01 11:41 | P.PN ---
Subjective Progress Note Date: 08/01/22 Principal diagnosis: This is a 66-year-old male seen in consultation for acute kidney injury, secondary to dye exposure on 07/26/2022 for cardiac catheterization and on 07/28/2022 for computed tomography scan of the abdomen. He came in because of chest pain. He is known with coronary artery disease status post stenting, history of triple-vessel coronary artery disease, chronic pancytopenia for about 18 years worsening, diabetes mellitus cardiomyopathy ejection fraction 35%. His creatinine was 1.31 on , 4.117 this morning. He remains on oxygen at much better. At minimal edema. Urine output is not documented. Vital signs are significant for hypertension blood pressure 95/61 This morning currently 117/59. Patient denies any dizziness at all settings been walking around Objective - Vital Signs Vital signs: Vital Signs Temp 98 F 08/01/22 08:00 Pulse 89 08/01/22 08:00 Resp 16 08/01/22 08:00 BP 117/59 08/01/22 08:00 Pulse Ox 96 08/01/22 08:00 FiO2 Intake & Output 07/31/22 08/01/22 08/01/22 18:59 06:59 18:59 Intake Total 540 620 Output Total 725 Balance 540 620 -725 Intake: IV 40 Invasive Line 1 20 Invasive Line 2 20 Oral 540 580 Output: Urine 725 Other: Voiding Method Toilet # Voids 0 On examination currently on O2 sitting out in a chair. HEENT exam No JVP noted neck is supple no facial asymmetry. Lungs are significant for bilateral coarse crackles not clear but cough. Heart sounds are unremarkable for any murmur rub gallop Abdomen soft nontender Extremity exam was mild edema Neurologically awake alert oriented - Labs CBC & Chem 7: 08/01/22 08:03 08/01/22 08:03 Labs: Abnormal Lab Results - Last 24 Hours (Table) 07/31/22 07/31/22 07/31/22 Range/Units 11:32 16:17 20:09 WBC (3.8-10.6) k/uL RBC (4.30-5.90) m/uL Hgb (13.0-17.5) gm/dL Hct (39.0-53.0) % MCV (80.0-100.0) fL MCH (25.0-35.0) pg RDW (11.5-15.5) % Plt Count (150-450) k/uL Sodium (137-145) mmol/L Chloride (98-107) mmol/L Carbon Dioxide (22-30) mmol/L BUN (9-20) mg/dL Glucose (74-99) mg/dL POC Glucose (mg/dL) 163 H 137 H 136 H (70-110) mg/dL Calcium (8.4-10.2) mg/dL 08/01/22 08/01/22 08/01/22 Range/Units 06:17 06:51 08:03 WBC 1.7 L (3.8-10.6) k/uL RBC 4.11 L (4.30-5.90) m/uL Hgb 9.6 L (13.0-17.5) gm/dL Hct 30.6 L (39.0-53.0) % MCV 74.5 L (80.0-100.0) fL MCH 23.3 L (25.0-35.0) pg RDW 19.2 H (11.5-15.5) % Plt Count 82 L (150-450) k/uL Sodium (137-145) mmol/L Chloride (98-107) mmol/L Carbon Dioxide (22-30) mmol/L BUN (9-20) mg/dL Glucose (74-99) mg/dL POC Glucose (mg/dL) 69 L 136 H (70-110) mg/dL Calcium (8.4-10.2) mg/dL 08/01/22 08/01/22 Range/Units 08:03 11:26 WBC (3.8-10.6) k/uL RBC (4.30-5.90) m/uL Hgb (13.0-17.5) gm/dL Hct (39.0-53.0) % MCV (80.0-100.0) fL MCH (25.0-35.0) pg RDW (11.5-15.5) % Plt Count (150-450) k/uL Sodium 130 L (137-145) mmol/L Chloride 87 L (98-107) mmol/L Carbon Dioxide 32 H (22-30) mmol/L BUN 27 H (9-20) mg/dL Glucose 217 H (74-99) mg/dL POC Glucose (mg/dL) 220 H (70-110) mg/dL Calcium 8.0 L (8.4-10.2) mg/dL Assessment and Plan Assessment: Impression 1. Acute kidney injury secondary to contrast-induced nephropathy resolved. 2. Hyponatremia secondary to congestive heart failure 3. Coronary artery disease status post cardiac cath 07/26/2022, schedule for bypass once the colonoscopy is done 4. Chronic pancytopenia schedule for colonoscopy EGD because of pancytopenia. 5. Ischemic cardiomyopathy ejection fraction 35%. 6. History of hyperkalemia secondary acute kidney injury and lisinopril resol reed. 7. Anemia status post iron infusion or the care of hematology Recommendation 1. Maintain current dialysis with Lasix and spironolactone. 2. Chest x-ray to see if there is any CHF that might need escalation of diabetic dose
[2022-08-01] MEDS: FERROUS SULFATE 325 MG TAB PO SCH (12:10)
--- NOTE | 2022-08-01 12:52 | P.PN ---
Progress Note - Text Progress Note Date: 08/01/22 Subjective: Patient admitted with confusion. Mentation has improved, patient is scheduled for procedure on Wednesday Review of systems: He denies chest pain, blood in stool, nausea, vomiting, forward to egd and colonoscopy PHYSICAL EXAM: VITAL SIGNS: Reviewed. GENERAL: Well-developed in no acute distress. Pale appearing NECK: Supple. No JVD or thyromegaly LUNGS: Respirations even and unlabored. Lungs essentially clear to auscultation bilaterally. HEART: Regular rate and rhythm. S1 and S2 heard. EXTREMITIES: Normal range of motion. No clubbing or cyanosis. Peripheral pulses intact. 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
--- NOTE | 2022-08-01 13:25 | XR ---
EXAMINATION TYPE: XR chest 2V DATE OF EXAM: 08/01/2022 COMPARISON: 07/26/2022 HISTORY: CHF TECHNIQUE: Frontal and lateral views of the chest are obtained. FINDINGS: There are persistent small bilateral pleural effusions but the pulmonary vasculature and interstiti al edema has resolved in the interval. There is no airspace consolidation. There is no pneumothorax. The heart size is normal. The osseous structures are intact. IMPRESSION: The findings on the prior study there are consistent with CHF have significantly improved in the interval. Small bilateral pleural effusions persist..
[2022-08-01 16:09] LABS: Glucose,Whole Blood 130 mg/dL (70-110)
[2022-08-01 20:11] LABS: Glucose,Whole Blood 223 mg/dL (70-110)
[2022-08-01] MEDS: INSULIN DETEMIR (LEVEMIR) 100 UNIT/ML SYR SQ SCH (21:14)
[2022-08-01] MEDS: QUEtiapine 25 MG TAB PO SCH (21:15)
[2022-08-01] MEDS: ATORVASTATIN 80 MG TAB PO SCH (21:15)
[2022-08-02] MEDS: NITROGLYCERIN OINT 1 INCH/GM PACKET TOPICAL SCH ×3 (00:31→17:41)
[2022-08-02 05:53] LABS: Glucose,Whole Blood 145 mg/dL (70-110)
[2022-08-02] MEDS: INSULIN ASPART (NovoLOG) 100 UNIT/ML VIAL SQ SCH ×4 (06:28→21:10)
[2022-08-02] MEDS ORDERED: PEG 3350 (236 GM/BTL) + LYTES 4,000 ML BOTTLE PO ONE (08:04)
[2022-08-02] MEDS: EZETIMIBE 10 MG TAB PO SCH (09:48)
[2022-08-02] MEDS: FERROUS SULFATE 325 MG TAB PO SCH (09:48)
[2022-08-02] MEDS: FUROSEMIDE 40 MG TAB PO SCH (09:48)
[2022-08-02] MEDS: ASCORBIC ACID 500 MG TAB PO SCH (09:48)
[2022-08-02] MEDS: SPIRONOLACTONE 25 MG TAB PO SCH (09:48)
[2022-08-02] MEDS: PREGABALIN 100 MG CAP PO SCH ×3 (09:48→21:09)
[2022-08-02] MEDS: ASPIRIN 81 MG PO SCH (09:48)
[2022-08-02] MEDS: PANTOPRAZOLE 40 MG/10 ML VIAL IVP SCH ×2 (09:49→21:10)
[2022-08-02] MEDS: METOPROLOL TARTRATE 25 MG TAB PO SCH ×2 (09:49→21:10)
--- NOTE | 2022-08-02 09:57 | P.PN ---
Subjective Progress Note Date: 08/02/22 Principal diagnosis: GI bleed Patient sitting at the bedside. Feels well. Hemoglobin 9.6 yesterday. Morning labs pending. Denies rectal bleeding. Objective - Vital Signs Vital signs: Vital Signs Temp 98.2 F 08/02/22 04:00 Pulse 72 08/02/22 04:00 Resp 16 08/02/22 04:00 BP 94/58 08/02/22 04:00 Pulse Ox 94 L 08/02/22 04:00 FiO2 Intake & Output 08/01/22 08/02/22 08/02/22 18:59 06:59 18:59 Intake Total 20 358 Output Total 725 600 Balance -725 -580 358 Weight 84.7 kg 71.6 kg Intake: IV 20 Invasive Line 3 20 Oral 358 Output: Urine 725 600 Other: Voiding Method Toilet - Exam Abdomen: Soft, nontender, nondistended - Labs CBC & Chem 7: 08/01/22 08:03 08/01/22 08:03 Labs: Abnormal Lab Results - Last 24 Hours (Table) 08/01/22 08/01/22 08/01/22 Range/Units 08:03 11:26 16:08 Sodium 130 L (137-145) mmol/L Chloride 87 L (98-107) mmol/L Carbon Dioxide 32 H (22-30) mmol/L BUN 27 H (9-20) mg/dL Glucose 217 H (74-99) mg/dL POC Glucose (mg/dL) 220 H 130 H (70-110) mg/dL Calcium 8.0 L (8.4-10.2) mg/dL 08/01/22 08/02/22 Range/Units 20:10 05:50 Sodium (137-145) mmol/L Chloride (98-107) mmol/L Carbon Dioxide (22-30) mmol/L BUN (9-20) mg/dL Glucose (74-99) mg/dL POC Glucose (mg/dL) 223 H 145 H (70-110) mg/dL Calcium (8.4-10.2) mg/dL Assessment and Plan (1) GI bleed Narrative/Plan: Patient doing well at this time. Await morning labs. Continue clear liquids. Begin bowel prep today for upper and lower endoscopy tomorrow. Current Visit: Yes Status: Acute Code(s): K92.2 - GASTROINTESTINAL HEMORRHAGE, UNSPECIFIED SNOMED Code(s): 23559802
[2022-08-02 10:52] LABS: Calcium 7.9 mg/dL (8.4-10.2); Potassium 4.7 mmol/L (3.5-5.1)
--- NOTE | 2022-08-02 11:24 | P.PN ---
Subjective Progress Note Date: 08/02/22 HISTORY OF PRESENT ILLNESS: This is a 66-year-old male patient of Dr. Sindi Montes De Oca with a past medical history significant for coronary artery disease with previous stenting, hypertension, hyperlipidemia, and former nicotine dependence. Patient has had several hospitalizations regarding coronary artery disease with cardiac catheterizations as noted below. Patient states that last evening he developed chest pain that was really bad while he was just walking in his house. He also complains of numbness in the bilateral arms and pain in the left arm. He states he had some lightheadedness and dizziness, difficulty breathing. Patient also states he had dark urine. He states the pain is exactly like he had previous to recent stenting. He states he took 2 nitroglycerin with no improvement. He also complains of his abdomen being hard and hurts on the side. His last bowel mov ement was yesterday and he does state he sometimes has blood in the stool sometimes quite a bit. He is noted to have a low hemoglobin since May of this year and he states he has not had this worked up. Patient pain when he presented was 17/02 and now states it's -06/05 * EKG reveals sinus mechanism with ST depression * Chest xray small bilateral pleural effusions. Associated atelectasis versus pneumonia. Prominent markings may represent pulmonary vascular congestion * Laboratory data: WBC 3.4, hemoglobin 8.8, platelet count 80. Initial BUN and creatinine 28 and 0.95 now at 24 and 1.31. Troponin 0.066, 6.390, 11.6 * Current home cardiac medications include aspirin 325 mg daily, atorvastatin 80 mg at bedtime, lisinopril 2.5 mg daily, metoprolol tartrate 12.5 mg twice daily, Nitrostat as needed, Effient 10 mg daily. * Cardiac catheterization history: June 2018 revealing diffuse coronary artery disease through the total occlusion of the distal RCA with proximal 70% stenosis in the midportion. 70-80% stenosis of the mid circumflex. The stents in the proximal RCA and circumflex are open. The LAD has about a 30- 40% lesion in the midportion. The patient underwent stenting of the mid left circumflex. Attempted balloon angioplasty of the right coronary artery. * Cardiac catheterization 06/17/[address] Montes De Oca revealed severe disease involving the proximal LAD, patient underwent successful stenting of the proximal LAD by Dr. Mullins. * Cardiac catheterization 06/27/[address] Mullins revealed patent stent in the proximal LAD. Intermediate lesion involving the very proximal LAD right after the takeoff from the left main appears to be in the range of 60%. Intermediate disease involving the first obtuse marginal branch which is a large caliber vessel. Mildly elevated left-sided filling pressures. Plan was for medical management and absence of any high-grade lesions. * Echocardiogram 06/27/2022: EF 30-35% 07/29/2022 Patient is status post cardiac catheterization on 07/26/2022 revealing severe stenosis involving the ostium of the LAD and the left circumflex. Chronically occluded right coronary artery. Collaterals from the left system. Elevated LVE DP. Evaluation for CABG was recommended. Patient examined this morning at the bedside. Patient has a enforcement safety officer present. Patient denies any chest pain or pressure. He denies shortness of breath. Patient is scheduled for EGD and colonoscopy tomorrow with general surgery. 07/30/2022 Patient examined this morning at the bedside. Patient underwent speech evaluation yesterday in which they were unable to fully rule out aspiration at the bedside. Patient requires modified barium swallow so his bowel prep was unable to be completed yesterday. Hence, his EGD and colonoscopy for today have been delayed. Patient denies any chest pain or pressure. He denies any shortness of breath. Vital signs are stable. 07/31/2022 Patient examined at this point. Patient is sitting up in the chair. He denies chest pain or pressure. Denies shortness of breath. Nephrology is following. Patient remains on IV lasix daily. Patient underwent modified barium swallow yesterday. EGD and colonoscopy has been scheduled for Wednesday with Dr. Melendrez. early morning babysitter remains at bedside. Vital signs are stable. 08/01/2022 Patient examined this morning. Patient is sitting up in the chair. Patient denies chest pain or pressure. He denies shortness of breath. Patient is to begin his bowel prep tomorrow. He is scheduled for EGD and colonoscopy on Wednesday. Vital signs are stable. He remains on IV Lasix 40 mg daily per nephrology. 08/02/2022 Patient examined this morning. Patient is sitting up in the chair. Patient denies chest pain or pressure. He denies shortness of breath. Patient is to begin his bowel prep today. He is scheduled for EGD and colonoscopy on Wednesday. Vital signs are stable. PHYSICAL EXAM: VITAL SIGNS: Reviewed. GENERAL: Well-developed in no acute distress. NECK: Supple. No JVD or thyromegaly LUNGS: Respirations even and unlabored. Lungs essentially clear to auscultation bilaterally. HEART: Regular rate and rhythm. S1 and S2 heard. EXTREMITIES: Normal range of motion. No clubbing or cyanosis. Peripheral pulses intact. No lower extremity edema ASSESSMENT: Non-STEMI, as well as cardiac catheterization with results as above Anemia, EGD and colonoscopy pending Coronary artery disease with previous stenting to the proximal RCA and circumflex Known chronic total occlusion of the distal RCA Ischemic cardiomyopathy, ejection fraction 30-35% Hypertension Hyperlipidemia Diabetes Pancytopenia Acute kidney injury Former nicotine dependence Depression with suicidal ideation PLAN: Continue current cardiac medications EGD and colonoscopy scheduled for Wednesday CT surgery following for CABG. Timing to be determined Further recommendations pending patient course Nurse practitioner note has been reviewed by physician. Signing provider agrees with the documented findings, assessment, and plan of care. Objective - Vital Signs Vital signs: Vital Signs Temp 98.2 F 08/02/22 04:00 Pulse 72 08/02/22 04:00 Resp 16 08/02/22 04:00 BP 94/58 08/02/22 04:00 Pulse Ox 94 L 08/02/22 04:00 FiO2 Intake & Output 08/01/22 08/02/22 08/02/22 18:59 06:59 18:59 Intake Total 20 358 Output Total 725 600 Balance -725 -580 358 Weight 84.7 kg 71.6 kg Intake: IV 20 Invasive Line 3 20 Oral 358 Output: Urine 725 600 Other: Voiding Method Toilet - Labs CBC & Chem 7: 08/01/22 08:03 08/02/22 09:19 Labs: Abnormal Lab Results - Last 24 Hours (Table) 08/01/22 08/01/22 08/01/22 Range/Units 11:26 16:08 20:10 Sodium (137-145) mmol/L Chloride (98-107) mmol/L Carbon Dioxide (22-30) mmol/L BUN (9-20) mg/dL Glucose (74-99) mg/dL POC Glucose (mg/dL) 220 H 130 H 223 H (70-110) mg/dL Calcium (8.4-10.2) mg/dL 08/02/22 08/02/22 Range/Units 05:50 09:19 Sodium 128 L (137-145) mmol/L Chloride 85 L (98-107) mmol/L Carbon Dioxide 38 H (22-30) mmol/L BUN 27 H (9-20) mg/dL Glucose 241 H (74-99) mg/dL POC Glucose (mg/dL) 145 H (70-110) mg/dL Calcium 7.9 L (8.4-10.2) mg/dL
[2022-08-02 11:30] LABS: Glucose,Whole Blood 199 mg/dL (70-110)
--- NOTE | 2022-08-02 12:42 | P.PN ---
Subjective Progress Note Date: 08/02/22 Principal diagnosis: This is a 66-year-old male seen in consultation for acute kidney injury, secondary to dye exposure on 07/26/2022 for cardiac catheterization and on 07/28/2022 for computed tomography scan of the abdomen. He came in because of chest pain. He is known with coronary artery disease status post stenting, history of triple-vessel coronary artery disease, chronic pancytopenia for about 18 years worsening, diabetes mellitus cardiomyopathy ejection fraction 35%. This morning Patient denies any dizziness at all settings been walking around His creatinine was 1.31 on 07/26/2022, as improved 1.18 this morning. His sodium though has gone down to 128. He remains on oxygen at much better. Has minimal edema. Urine output is documented at 13 25 mL . Vital signs are significant for a potential pressures 86/51 occasionally to 105/57 He remains on room air Objective - Vital Signs Vital signs: Vital Signs Temp 98.2 F 08/02/22 04:00 Pulse 72 08/02/22 04:00 Resp 16 08/02/22 04:00 BP 94/58 08/02/22 04:00 Pulse Ox 94 L 08/02/22 04:00 FiO2 Intake & Output 08/01/22 08/02/22 08/02/22 18:59 06:59 18:59 Intake Total 20 358 Output Total 725 600 Balance -725 -580 358 Weight 84.7 kg 71.6 kg Intake: IV 20 Invasive Line 3 20 Oral 358 Output: Urine 725 600 Other: Voiding Method Toilet On examination currently on room air HEENT exam No JVP noted neck is supple no facial asymmetry. Lungs are significant for bilateral coarse crackles not clear by cough. Heart sounds are unremarkable for any murmur rub gallop Abdomen soft nontender Extremity exam was mild edema Neurologically awake alert oriented - Labs CBC & Chem 7: 08/01/22 08:03 08/02/22 09:19 Labs: Abnormal Lab Results - Last 24 Hours (Table) 08/01/22 08/01/22 08/02/22 Range/Units 16:08 20:10 05:50 Sodium (137-145) mmol/L Chloride (98-107) mmol/L Carbon Dioxide (22-30) mmol/L BUN (9-20) mg/dL Glucose (74-99) mg/dL POC Glucose (mg/dL) 130 H 223 H 145 H (70-110) mg/dL Calcium (8.4-10.2) mg/dL 08/02/22 08/02/22 Range/Units 09:19 11:28 Sodium 128 L (137-145) mmol/L Chloride 85 L (98-107) mmol/L Carbon Dioxide 38 H (22-30) mmol/L BUN 27 H (9-20) mg/dL Glucose 241 H (74-99) mg/dL POC Glucose (mg/dL) 199 H (70-110) mg/dL Calcium 7.9 L (8.4-10.2) mg/dL Assessment and Plan Assessment: Impression 1. Acute kidney injury secondary to contrast-induced nephropathy resolved. 2. Hyponatremia secondary to congestive heart failure currently on Lasix and sodium 128 slightly worse 3. Coronary artery disease status post cardiac cath 07/26/2022, schedule for bypass once the colonoscopy is done 4. Chronic pancytopenia schedule for colonoscopy EGD because of pancytopenia. 5. Ischemic cardiomyopathy ejection fraction 35%. 6. History of hyperkalemia secondary acute kidney injury and lisinopril resolved. 7. Anemia status post iron infusion or the care of hematology. 8. Mild degree of metabolic alkalosis secondary to diuretics. Recommendation 1. Maintain current dialysis with Lasix and spironolactone. 2. Watch metabolic alkalosis and hyponatremia. 3. Check orthostatic changes to see if he is volume depleted, his lungs sound wet and this chest x-ray showing improvement. If he does not have orthostatic changes I would like to get him A dose of Lasix 40 g IV once
--- NOTE | 2022-08-02 13:17 | P.PN ---
Progress Note - Text Progress Note Date: 08/02/22 SUBJECTIVE : Patient seen and evaluated bedside he is alert and oriented 3 w aiting for colonoscopy. Prep started REVIEW OF SYSTEMS: NEGATIVE EXCEPT FOR weakness CONSTITUTIONAL: No fever, no malaise, no fatigue. HEENT: No recent visual problems or hearing problems. Denied any sore throat. CARDIOVASCULAR: No chest pain, orthopnea, PND, no palpitations, no syncope. PULMONARY: No shortness of breath, no cough, no hemoptysis. GASTROINTESTINAL: No diarrhea, no nausea, no vomiting, no abdominal pain. NEUROLOGICAL: No headaches, no weakness, no numbness. HEMATOLOGICAL: Denies any bleeding or petechiae. GENITOURINARY: Denies any burning micturition, frequency, or urgency. MUSCULOSKELETAL/RHEUMATOLOGICAL: Denies any joint pain, swelling, or any muscle pain. ENDOCRINE: Denies any polyuria or polydipsia. PHYSICAL EXAMINATION: GENERAL: The patient is alert and oriented x3, not in any acute distress. Well developed, well nourished. HEENT: Pupils are round and equally reacting to light. EOMI. No scleral icterus. No conjunctival pallor. Normocephalic, atraumatic. No pharyngeal erythema. No thyromegaly. CARDIOVASCULAR: S1 and S2 present. No murmurs, rubs, or gallops. PULMONARY: Chest is clear to auscultation, no wheezing or crackles. ABDOMEN: Soft, nontender, nondistended, normoactive bowel sounds. No palpable organomegaly. MUSCULOSKELETAL: No joint swelling or deformity. EXTREMITIES: No cyanosis, clubbing, or pedal edema. NEUROLOGICAL: Gross neurological examination did not reveal any focal deficits. SKIN: No rashes. Assessment and plan Non-STEMI status post cardiac catheterization needing bypass Iron deficiency anemia Pancytopenia Coronary artery disease with previous stenting to the proximal RCA and circumflex Known chronic total occlusion of the distal RCA Ischemic cardiomyopathy, ejection fraction 30-35% Hypertension Hyperlipidemia Diabetes Acute kidney injury Former nicotine dependence Depression with suicidal ideation PLAN: Continue current cardiac medications ASPIRIN, LIPITOR, LASIX, transitioned from IV to oral Plan for EGD and colonoscopy during this hospitalization History of coronary artery disease cardiac surgery following Seen by cardiology, nephrology during this hospitalization
[2022-08-02 16:29] LABS: Glucose,Whole Blood 92 mg/dL (70-110)
[2022-08-02 20:02] LABS: Glucose,Whole Blood 152 mg/dL (70-110)
[2022-08-02] MEDS: QUEtiapine 25 MG TAB PO SCH (21:10)
[2022-08-02] MEDS: INSULIN DETEMIR (LEVEMIR) 100 UNIT/ML SYR SQ SCH (21:10)
[2022-08-02] MEDS: ATORVASTATIN 80 MG TAB PO SCH (21:10)
[2022-08-03] MEDS: NITROGLYCERIN OINT 1 INCH/GM PACKET TOPICAL SCH ×2 (00:19→09:29)
[2022-08-03 06:11] LABS: Glucose,Whole Blood 84 mg/dL (70-110)
[2022-08-03] MEDS: INSULIN ASPART (NovoLOG) 100 UNIT/ML VIAL SQ SCH ×4 (06:24→21:12)
[2022-08-03 07:01] LABS: Anisocytosis Slight; HCT 29.5 % (39.0-53.0); HGB 9.4 gm/dL (13.0-17.5); Hypochromasia Moderate; MCH 23.6 pg (25.0-35.0); MCHC 31.9 g/dL (31.0-37.0); MCV 73.9 fL (80.0-100.0); Mean Platelet Volume 8.3; Microcytosis Moderate; Poikilocytosis Slight; RBC 3.99 m/uL (4.30-5.90); RDW 19.7 % (11.5-15.5); WBC 2.3 k/uL (3.8-10.6)
[2022-08-03 07:21] LABS: Platelet Count 69 k/uL (150-450)
[2022-08-03 07:23] LABS: Calcium 8.1 mg/dL (8.4-10.2); Potassium 4.4 mmol/L (3.5-5.1)
--- NOTE | 2022-08-03 08:26 | P.PN ---
Subjective Progress Note Date: 08/03/22 Principal diagnosis: Chest pain This is a 66-year-old male who was originally admitted for chest pain, likely requiring a CABG. Last week had significant altered mental status and required a sitter. Patient also with low hemoglobin and bloody stool during stay, plan was for an EGD/colonoscopy last week but patient failed his swallow evaluation. Speech therapy did a modified swallow evaluation and patient passed that on Wednesday. Plan is for EGD and colonoscopy this morning. Hemoglobin stable at 9.4. Patient is seen sitting in chair this morning, denies any current compla ints. Objective - Vital Signs Vital signs: Vital Signs Temp 97.6 F 08/03/22 04:00 Pulse 70 08/03/22 04:00 Resp 15 08/03/22 04:00 BP 94/60 08/03/22 04:00 Pulse Ox 99 08/03/22 04:00 FiO2 Intake & Output 08/02/22 08/03/22 08/03/22 18:59 06:59 18:59 Intake Total 594 4020 Output Total 400 150 Balance 194 3870 Intake: IV 20 Invasive Line 3 20 Oral 594 4000 Output: Urine 400 150 Other: Voiding Method Toilet Toilet # Voids 1 - Constitutional General appearance: Present: cooperative, no acute distress - EENT Eyes: Present: EOMI, PERRLA - Neck Neck: Present: normal ROM. Absent: lymphadenopathy, rigidity - Respiratory Respiratory: bilateral: CTA - Cardiovascular Rhythm: regular Heart sounds: normal: S1, S2 - Gastrointestinal General gastrointestinal: Present: soft. Absent: tenderness - Integumentary Integumentary: Present: normal, normal turgor - Psychiatric Psychiatric: Present: A&O x's 3, appropriate affect, intact judgment & insight - Labs CBC & Chem 7: 08/03/22 06:09 08/03/22 06:09 Labs: Abnormal Lab Results - Last 24 Hours (Table) 08/02/22 08/02/22 08/02/22 Range/Units 09:19 11:28 19:59 WBC (3.8-10.6) k/uL RBC (4.30-5.90) m/uL Hgb (13.0-17.5) gm/dL Hct (39.0-53.0) % MCV (80.0-100.0) fL MCH (25.0-35.0) pg RDW (11.5-15.5) % Plt Count (150-450) k/uL Sodium 128 L (137-145) mmol/L Chloride 85 L (98-107) mmol/L Carbon Dioxide 38 H (22-30) mmol/L BUN 27 H (9-20) mg/dL Glucose 241 H (74-99) mg/dL POC Glucose (mg/dL) 199 H 152 H (70-110) mg/dL Calcium 7.9 L (8.4-10.2) mg/dL 08/03/22 08/03/22 Range/Units 06:09 06:09 WBC 2.3 L (3.8-10.6) k/uL RBC 3.99 L (4.30-5.90) m/uL Hgb 9.4 L (13.0-17.5) gm/dL Hct 29.5 L (39.0-53.0) % MCV 73.9 L (80.0-100.0) fL MCH 23.6 L (25.0-35.0) pg RDW 19.7 H (11.5-15.5) % Plt Count 69 L (150-450) k/uL Sodium 133 L (137-145) mmol/L Chloride 88 L (98-107) mmol/L Carbon Dioxide 38 H (22-30) mmol/L BUN 24 H (9-20) mg/dL Glucose 69 L (74-99) mg/dL POC Glucose (mg/dL) (70-110) mg/dL Calcium 8.1 L (8.4-10.2) mg/dL Assessment and Plan (1) Chest pain Current Visit: Yes Status: Acute Code(s): R07.9 - CHEST PAIN, UNSPECIFIED SNOMED Code(s): 66354996 (2) Acute kidney injury Current Visit: Yes Status: Acute Code(s): N17.9 - ACUTE KIDNEY FAILURE, UNSPECIFIED SNOMED Code(s): 05091711 (3) Delirium Current Visit: Yes Status: Acute Code(s): R41.0 - DISORIENTATION, UNSPECIFIED SNOMED Code(s): 3359703 (4) GI bleed Current Visit: Yes Status: Acute Code(s): K92.2 - GASTROINTESTINAL HEMORRHAG E, UNSPECIFIED SNOMED Code(s): 19688388 (5) NSTEMI (non-ST elevated myocardial infarction) Current Visit: Yes Status: Acute Code(s): I21.4 - NON-ST ELEVATION (NSTEMI) MYOCARDIAL INFARCTION SNOMED Code(s): 96821808 (6) Acute coronary syndrome with high troponin Current Visit: No Status: Acute Code(s): I24.9 - ACUTE ISCHEMIC HEART DISEASE, UNSPECIFIED SNOMED Code(s): 505156648 (7) Diabetes Current Visit: No Status: Acute Code(s): E11.9 - TYPE 2 DIABETES MELLITUS WITHOUT COMPLICATIONS SNOMED Code(s): 08244496 (8) Hypertension Current Visit: No Status: Acute Code(s): I10 - ESSENTIAL (PRIMARY) HYPERTEN GOSIA SNOMED Code(s): 92236059 Plan: Check CBC and CMP in the morning. Await EGD and colonoscopy results. Await recommendations from cardiac surgeon after EGD and colonoscopy results Patient seen and evaluated by nurse practitioner, physician in agreement with plan
[2022-08-03] MEDS: PREGABALIN 100 MG CAP PO SCH ×3 (11:51→21:11)
[2022-08-03 11:54] LABS: Glucose,Whole Blood 79 mg/dL (70-110)
--- NOTE | 2022-08-03 12:04 | P.PN ---
Subjective Patient is seen for follow-up for acute kidney injury associated with IV contrast. Renal function has been improving. Serum creatinine at 1.1 No complaints today Objective - Vital Signs Vital signs: Vital Signs Temp 97.4 F L 08/03/22 09:40 Pulse 74 08/03/22 09:40 Resp 16 08/03/22 09:40 BP 112/56 08/03/22 09:40 Pulse Ox 98 08/03/22 09:40 FiO2 Intake & Output 08/02/22 08/03/22 08/03/22 18:59 06:59 18:59 Intake Total 594 4020 Output Total 400 150 Balance 194 3870 Weight 71 kg Intake: IV 20 Invasive Line 3 20 Oral 594 4000 Output: Urine 400 150 Other: Voiding Method Toilet Toilet Toilet # Voids 1 - Exam Awake, comfortable, no acute distress Examination of the heart S1 and S2 Examination of the lungs bilateral breath sounds are heard Abdomen is soft nontender Examination lower extremity shows trace edema bilaterally STEM SHAPER exam grossly intact - Labs CBC & Chem 7: 08/03/22 06:09 08/03/22 06:09 Labs: Abnormal Lab Results - Last 24 Hours (Table) 08/02/22 08/03/22 08/03/22 Range/Units 19:59 06:09 06:09 WBC 2.3 L (3.8-10.6) k/uL RBC 3.99 L (4.30-5.90) m/uL Hgb 9.4 L (13.0-17.5) gm/dL Hct 29.5 L (39.0-53.0) % MCV 73.9 L (80.0-100.0) fL MCH 23.6 L (25.0-35.0) pg RDW 19.7 H (11.5-15.5) % Plt Count 69 L (150-450) k/uL Sodium 133 L (137-145) mmol/L Chloride 88 L (98-107) mmol/L Carbon Dioxide 38 H (22-30) mmol/L BUN 24 H (9-20) mg/dL Glucose 69 L (74-99) mg/dL POC Glucose (mg/dL) 152 H (70-110) mg/dL Calcium 8.1 L (8.4-10.2) mg/dL Assessment and Plan Assessment: 1. Acute kidney injury secondary to contrast-induced nephropathy resolved. 2. Hyponatremia secondary to congestive heart failure currently on Lasix and improved 3. Coronary artery disease status post cardiac cath 07/26/2022, schedule for bypass once the colonoscopy is done 4. Chronic pancytopenia schedule for colonoscopy EGD because of pancytopenia. 5. Ischemic cardiomyopathy ejection fraction 35%. 6. History of hyperkalemia secondary acute kidney injury and lisinopril resolved. 7. Anemia status post iron infusion or the care of hematology. 8. Mild degree of metabolic alkalosis secondary to diuretics. Plan: Continue with oral diuretics
[2022-08-03] MEDS ORDERED: IV FLUID CONTINUATION 1,000 ML IV ONE ×2 (12:27)
[2022-08-03] MEDS ORDERED: LIDOCAINE 2% INJ 20 MG/ML (2 ML VIAL) ONE (12:29)
[2022-08-03] MEDS ORDERED: PROPOFOL 10 MG/ML 20 ML VIAL IV ONE (12:29)
--- NOTE | 2022-08-03 13:00 | P.OP ---
Date of Procedure: 08/03/22 Preoperative Diagnosis: GI bleed Postoperative Diagnosis: Antral gastritis Sigmoid colon mass Diverticulosis Procedure(s) Performed: Colonoscopy EGD Anesthesia: MAC Surgeon: Jesse Melendrez Pathology: other (Sigmoid colon, antrum) Condition: stable Disposition: PACU Description of Procedure: The patient's placed on the endoscopy table in the lateral position. He received IV sedation. The gastroscope placed oropharynx passed in the esophagus and into the stomach. Scope was then placed through the pylorus. First and second portion of the duodenum appeared normal. Scope summer back the antrum was mildly inflamed. A biopsies performed. Scope was then retroflexed and the remainder of the stomach appeared normal. The GE junction was at 40 cm. The distal esophagus appeared normal. The proximal esophagus normal. Scope withdrawn for patient. Next digital rectal exam was performed. This revealed no abnormalities. There was some bloody staining examining finger. The flexible colonoscope was then placed patient anus and passed throughout the entire colon. The ileocecal valve was visualized. Cecum and ascending colon appeared normal. The transverse colon appeared normal. In the descending colon there is mild diverticular changes. In the sigmoid colon there is more extensive diverticular changes. In the sigmoid colon at the 25 cm elma there was a bleeding mass which had the appearance of a colon cancer. A biopsies performed. The area was tattooed. The remaining rectum appeared normal. Scope was withdrawn for patient. Patient has GI bleed anemia related to his sigmoid colon mass.
[2022-08-03 13:52] VITALS: BMI 26.0
[2022-08-03 16:13] LABS: Glucose,Whole Blood 96 mg/dL (70-110)
[2022-08-03] MEDS: METOPROLOL TARTRATE 25 MG TAB PO SCH ×2 (17:24→21:11)
[2022-08-03] MEDS: ASCORBIC ACID 500 MG TAB PO SCH (17:31)
[2022-08-03] MEDS: ISOSORBIDE MONONITRATE ER 30 MG TAB.ER.24H PO SCH (17:31)
[2022-08-03] MEDS: FUROSEMIDE 40 MG TAB PO SCH (17:31)
[2022-08-03] MEDS: EZETIMIBE 10 MG TAB PO SCH (17:31)
[2022-08-03] MEDS: ASPIRIN 81 MG PO SCH (17:31)
[2022-08-03] MEDS: SPIRONOLACTONE 25 MG TAB PO SCH (17:31)
[2022-08-03] MEDS: FERROUS SULFATE 325 MG TAB PO SCH (17:31)
[2022-08-03] MEDS: SODIUM FERRIC GLUCONAT-SUCROSE 125 MG in SODIUM CHLORIDE 0.9% 100 ML IVPB SCH (17:31)
[2022-08-03] MEDS: PANTOPRAZOLE 40 MG/10 ML VIAL IVP SCH ×2 (17:32→21:11)
[2022-08-03] MEDS: CYANOCOBALAMIN 1,000 MCG/ML 1 ML VIAL IM SCH (17:32)
--- NOTE | 2022-08-03 17:51 | CONS ---
CONSULTATION HISTORY OF PRESENT ILLNESS: This is a 66-year-old gentleman with multiple comorbid conditions, who had a cardiac catheterization performed by Dr. Jordan on July 26, which revealed chronically occluded RCA, ostial circumflex that is 90%, and also LAD lesion in at least 2 areas of significance. He has had previous multivessel PCI. LAD had an ostial 70% to 80% and another area in the midportion as well. RCA is totally occluded. Ejection fraction is in the 30% to 35% range with an elevated left ventricular end-diastolic pressure. He was referred for surgery but demonstrated GI bleeding, and endoscopy upper and lower today revealed that he has a sigmoid mass which is actually oozing, and he had a drop in hemoglobin up to 6.6 requiring blood transfusion about a week ago. This gentleman's options are extremely limited. Any noncardiac surgery is associated with a significant risk of myocardial infarction and mortality given his coronary anatomy. Any intervention for coronary artery disease, either percutaneous or bypass surgery, will involve anticoagulation which will also worsen his bleeding risk, and he has already demonstrated that he bled quite a bit. I will have a candid discussion with the patient tomorrow regarding options, and I will also give him the option of being transferred to a tertiary care center as well. However, if he wishes to have surgery, I would recommend that we can proceed with the operation with a high intraoperative risk of ME and heart failure both. He recently had a [id number] ME. I have explained to him in detail the findings, and tomorrow, I will discuss with him one more time about his situation and also speak to the surgeon. I have discussed with Dr. Ramirez who sees him in the office and Dr. Jordan who performed the cardiac catheterization. Dr. Jordan felt that this was a high-risk PCI and would not recommend intervention with a risk of GI bleeding and a sigmoid mass which is actively oozing. Obviously, open heart surgery will involve giving him a high-dose heparin, so that also seems a high risk intervention. His option of proceeding with sigmoid resection is also associated with a high intraoperative ME and heart failure. I will have another discussion with the patient tomorrow and give him the option of going to a tertiary care center. PHYSICAL EXAMINATION: Today, physical exam revealed that his VITAL SIGNS: Stable. Blood pressure 112/60, pulse rate is 70. HEENT: Unremarkable. Fundus was not examined. NECK: Supple. JVD 1 cm. No carotid bruit. HEART: S1 and S2 heard normally. Short systolic murmur is audible at left sternal border. LUNGS: Reveal bilateral decent air entry. ABDOMEN: Soft. EXTREMITIES: Lower extremities reveal diminished pulses. MACHINERY ERECTOR: Grossly within normal limits. IMPRESSION: 1. Ischemic cardiomyopathy. 2. Active gastrointestinal bleeding. 3. Sigmoid mass. 4. Pancytopenia. RECOMMENDATIONS: Prognosis remains poor. If the patient proceeds for sigmoid surgery, the risks of intraoperative ME and heart failure are high, but if he proceeds with any coronary revascularization, percutaneous or surgical, he is involved with a high risk of bleeding. Options are limited. We will discuss again. The patient is aware of the situation. MMODL / IJN: [id number] /
[2022-08-03 20:08] LABS: Glucose,Whole Blood 146 mg/dL (70-110)
[2022-08-03] MEDS: ATORVASTATIN 80 MG TAB PO SCH (21:11)
[2022-08-03] MEDS: QUEtiapine 25 MG TAB PO SCH (21:11)
[2022-08-03] MEDS: INSULIN DETEMIR (LEVEMIR) 100 UNIT/ML SYR SQ SCH (21:11)
[2022-08-03 23:06] VITALS: RESP 18
[2022-08-04 06:22] LABS: Glucose,Whole Blood 91 mg/dL (70-110)
[2022-08-04] MEDS ORDERED: MIDAZOLAM 2 MG/2 ML VIAL IV PRN (07:00)
[2022-08-04] MEDS: INSULIN ASPART (NovoLOG) 100 UNIT/ML VIAL SQ SCH ×2 (07:02→11:41)
[2022-08-04] MEDS ORDERED: DEXAMETHASONE SOD PHOSPHATE 4 MG/ML 1 ML VIAL IV ONE (08:06)
[2022-08-04] MEDS ORDERED: LACTATED RINGERS 1,000 ML IV SCH (08:15)
--- NOTE | 2022-08-04 08:37 | P.DS ---
Providers Date of admission: 07/26/22 03:23 Attending physician: Thom Vazquez Consults: 07/26/22 03:23 Consult Physician Urgent Consulting Provider: [facility] Consult Reason/Comments: acute chest pain, nstemi Do you want consulting provider notified?: Yes 07/26/22 13:08 Consult Physician Routine Consulting Provider: Romario Hassan Consult Reason/Comments: cabg Do you want consulting provider notified?: Yes 07/26/22 16:33 Consult Physician Routine Consulting Provider: Cristian Hernandez Consult Reason/Comments: High risk of suicide Do you want consulting provider notified?: Yes 07/26/22 18:13 Consult Physician Routine Consulting Provider: Kelsea Olivo Consult Reason/Comments: jessie Do you want consulting provider notified?: Yes 07/26/22 18:14 Consult Physician Routine Consulting Provider: Steven Rodrigues Consult Reason/Comments: surgical clearance, SOB Do you want consulting provider notified?: Yes 07/27/22 10:08 Consult Physician Routine Consulting Provider: Jesse Melendrez Consult Reason/Comments: anemia, r/o GIB Do you want consulting provider notified?: Already Contacted 07/28/22 00:12 Consult Physician Urgent Consulting Provider: Giuliano Benjamin Consult Reason/Comments: aletered mental status Do you want consulting provider notified?: Yes 07/28/22 15:27 Consult Physician Urgent Consulting Provider: Tej Lazaro Consult Reason/Comments: Pancytopenia, anemia Do you want consulting provider notified?: Yes Primary care physician: Thom Vazquez - Discharge Diagnosis(es) (1) Chest pain Current Visit: Yes Status: Acute (2) Acute kidney injury Current Visit: Yes Status: Acute (3) Delirium Current Visit: Yes Status: Acute (4) GI bleed Current Visit: Yes Status: Acute (5) NSTEMI (non-ST elevated myocardial infarction) Current Visit: Yes Status: Acute (6) Acute coronary syndrome with high troponin Current Visit: No Status: Acute (7) Diabetes Current Visit: No Status: Acute (8) Hypertension Current Visit: No Status: Acute (9) Rectal mass Current Visit: Yes Status: Acute Hospital Course: This is a 66-year-old male who was originally admitted for chest pain, with likely need for CABG. Patient developed to GI bleed while admitted, underwent an EGD and colonoscopy yesterday which showed a rectal mass. Per Dr. Melendrez mass has the appearance of colon cancer. Long discussion with patient about treatment options, he ultimately has decided to go home with hospice, stating he would rather be more comfortable at home. Awaiting results of labs today to check hemoglobin before discharge. Patient may be discharged home if cleared by consultants. Need cardiology to clarify if patient should go home on prasugrel while on hospice. Otherwise he will be discharged to continue on his home medications. Patient seen and evaluated by nurse practitioner, physician in agreement with plan Patient Condition at Discharge: Serious Plan - Discharge Summary Discharge Rx Participant: Yes New Discharge Prescriptions: Continue Pregabalin [Lyrica] 200 mg PO TID Aspirin 325 mg PO DAILY tab lisinopriL [Zestril] 2.5 mg PO DAILY #30 tab Metoprolol Tartrate 12.5 mg PO BID Insulin Degludec [Tresiba Flextouch U-100 Pen] 40 units SQ DAILY Atorvastatin [Lipitor] 80 mg PO HS #90 tab Nitroglycerin Sl Tabs [Nitrostat] 0.4 mg SUBLINGUAL Q5M PRN #50 tab PRN Reason: Chest Pain Discontinued Prasugrel [Effient] 10 mg PO DAILY #30 tab Discharge Medication List Pregabalin [Lyrica] 200 mg PO TID 09/14/14 [History] Aspirin 325 mg PO DAILY tab 09/15/14 [Rx] lisinopriL [Zestril] 2.5 mg PO DAILY #30 tab 09/15/14 [Rx] Metoprolol Tartrate 12.5 mg PO BID 06/28/18 [History] Insulin Degludec [Tresiba Flextouch U-100 Pen] 40 units SQ DAILY 06/16/22 [History] Atorvastatin [Lipitor] 80 mg PO HS #90 tab 06/18/22 [Rx] Nitroglycerin Sl Tabs [Nitrostat] 0.4 mg SUBLINGUAL Q5M PRN #50 tab 06/18/22 [Rx] Follow up Appointment(s)/Referral(s): Inez Guevara MD [STAFF PHYSICIAN] - 4 Weeks Thom Vazquez MD [Primary Care Provider] - 1-2 days Jesse Melendrez MD [STAFF PHYSICIAN] - 1 Week Discharge Disposition: HOME WITH HOSPICE
[2022-08-04] MEDS: SODIUM FERRIC GLUCONAT-SUCROSE 125 MG in SODIUM CHLORIDE 0.9% 100 ML IVPB SCH (09:01)
[2022-08-04] MEDS: METOPROLOL TARTRATE 25 MG TAB PO SCH (09:02)
[2022-08-04] MEDS: ASPIRIN 81 MG PO SCH (09:02)
[2022-08-04] MEDS: ISOSORBIDE MONONITRATE ER 30 MG TAB.ER.24H PO SCH (09:02)
[2022-08-04] MEDS: SPIRONOLACTONE 25 MG TAB PO SCH (09:03)
[2022-08-04] MEDS: CYANOCOBALAMIN 1,000 MCG/ML 1 ML VIAL IM SCH (09:04)
[2022-08-04] MEDS: EZETIMIBE 10 MG TAB PO SCH (09:04)
[2022-08-04] MEDS: FUROSEMIDE 40 MG TAB PO SCH (09:04)
[2022-08-04] MEDS: PREGABALIN 100 MG CAP PO SCH (09:04)
[2022-08-04] MEDS: ASCORBIC ACID 500 MG TAB PO SCH (09:04)
[2022-08-04] MEDS: PANTOPRAZOLE 40 MG/10 ML VIAL IVP SCH (09:04)
[2022-08-04 09:18] LABS: Anisocytosis Moderate; HCT 29.2 % (39.0-53.0); HGB 9.3 gm/dL (13.0-17.5); Hypochromasia Moderate; MCH 23.8 pg (25.0-35.0); MCV 74.3 fL (80.0-100.0); Mean Platelet Volume 10.7; Microcytosis Moderate; Poikilocytosis Slight; RBC 3.93 m/uL (4.30-5.90); RDW 20.3 % (11.5-15.5); WBC 2.8 k/uL (3.8-10.6)
[2022-08-04 09:23] LABS: Platelet Count 88 k/uL (150-450)
[2022-08-04 09:38] LABS: Albumin 3.4 g/dL (3.5-5.0); Potassium 4.4 mmol/L (3.5-5.1); Total Bilirubin 0.8 mg/dL (0.2-1.3); Total Protein 6.3 g/dL (6.3-8.2)
[2022-08-04 11:27] VITALS: BP 99/61; PULSE 67; TEMP 97.4
[2022-08-04 11:34] LABS: Glucose,Whole Blood 109 mg/dL (70-110)
--- NOTE | 2022-08-04 11:54 | P.PN ---
Subjective Patient is seen for follow-up for acute kidney injury associated with IV contrast. Renal function has been improving. Serum creatinine at 1.0 No complaints today Maintained on oral Lasix at 40 mg daily. Objective - Vital Signs Vital signs: Vital Signs Temp 97.4 F L 08/04/22 11:26 Pulse 67 08/04/22 11:26 Resp 18 08/04/22 11:26 BP 99/61 08/04/22 11:26 Pulse Ox 98 08/04/22 11:26 FiO2 Intake & Output 08/03/22 08/04/22 08/04/22 18:59 06:59 18:59 Intake Total 540 Output Total 350 Balance 190 Weight 71 kg 70.5 kg Intake: IV 300 Oral 240 Output: Urine 350 Other: Voiding Method Toilet Toilet Toilet # Voids 1 1 - Exam Awake, comfortable, no acute distress Examination of the heart S1 and S2 Examination of the lungs bilateral breath sounds are heard Abdomen is soft nontender Examination lower extremity shows trace edema bilaterally WHEEL LOADER OPERATOR exam grossly intact - Labs CBC & Chem 7: 08/04/22 08:23 08/04/22 08:23 Labs: Abnormal Lab Results - Last 24 Hours (Table) 08/03/22 08/04/22 08/04/22 Range/Units 20:07 08:23 08:23 WBC 2.8 L (3.8-10.6) k/uL RBC 3.93 L (4.30-5.90) m/uL Hgb 9.3 L (13.0-17.5) gm/dL Hct 29.2 L (39.0-53.0) % MCV 74.3 L (80.0-100.0) fL MCH 23.8 L (25.0-35.0) pg RDW 20.3 H (11.5-15.5) % Plt Count 88 L (150-450) k/uL Sodium 133 L (137-145) mmol/L Chloride 91 L (98-107) mmol/L Carbon Dioxide 39 H (22-30) mmol/L Glucose 126 H (74-99) mg/dL POC Glucose (mg/dL) 146 H (70-110) mg/dL Calcium 8.0 L (8.4-10.2) mg/dL Albumin 3.4 L (3.5-5.0) g/dL Assessment and Plan Assessment: 1. Acute kidney injury secondary to contrast-induced nephropathy resolved. 2. Hyponatremia secondary to congestive heart failure currently on Lasix and improved 3. Coronary artery disease status post cardiac cath 07/26/2022, schedule for bypass once the colonoscopy is done 4. Chronic pancytopenia schedule for colonoscopy EGD because of pancytopenia. 5. Ischemic cardiomyopathy ejection fraction 35%. 6. History of hyperkalemia secondary acute kidney injury and lisinopril resolved. 7. Anemia status post iron infusion or the care of hematology. 8. Mild degree of metabolic alkalosis secondary to diuretics. Plan: Continue with oral diuretics Okay to discharge from nephrology standpoint
[2022-08-04] MEDS: FERROUS SULFATE 325 MG TAB PO SCH (12:00)
--- NOTE | 2022-08-04 12:44 | P.PN ---
Subjective Progress Note Date: 08/04/22 CHIEF COMPLAINT: Chest pain HISTORY OF PRESENT ILLNESS: Patient has a bedside chair. He denies abdominal pain. He had EGD and colonoscopy completed yesterday revealing gastritis, sigmoid colon mass and diverticulosis. Due to the sigmoid colon mass was recommended for a lower anterior resection. Patient evaluated by cardiology service and was considered at high risk for surgery. Patient reports discussing options with medicine service and wants to proceed to be discharged home with hospice. Patient does not want any surgery completed at this time. He does have known severe coronary artery disease and was being evaluated for possible bypass surgery. PHYSICAL EXAM: VITAL SIGNS: Reviewed. GENERAL: Well-developed in no acute distress. HEENT: No sclera icterus. Extraocular movements grossly intact. Moist buccal mucosa. Head is atraumatic, normocephalic. ABDOMEN: Soft. Mildly distended. Nontender NEUROLOGIC: Alert and oriented. Cranial nerves II through XII grossly intact. ASSESSMENT: 1. Sigmoid colon mass with evidence of bleeding on colonoscopy 2. Patient's source of anemia is likely due to bleeding sigmoid colon mass PLAN: -Lower anterior resection was recommended for the sigmoid colon mass -Biopsy results are pending -Patient is not interested in surgery. He wishes to be discharged home with hospice Physician Integrity Engineer note has been reviewed by physician. Signing provider agrees with the documented findings, assessment, and plan of care. Objective - Vital Signs Vital signs: Vital Signs Temp 97.4 F L 08/04/22 11:26 Pulse 67 08/04/22 11:26 Resp 18 08/04/22 11:26 BP 99/61 08/04/22 11:26 Pulse Ox 98 08/04/22 11:26 FiO2 Intake & Output 08/03/22 08/04/22 08/04/22 18:59 06:59 18:59 Intake Total 540 Output Total 350 Balance 190 Weight 71 kg 70.5 kg Intake: IV 300 Oral 240 Output: Urine 350 Other: Voiding Method Toilet Toilet Toilet # Voids 1 1 - Labs CBC & Chem 7: 08/04/22 08:23 08/04/22 08:23 Labs: Abnormal Lab Results - Last 24 Hours (Table) 08/03/22 08/04/22 08/04/22 Range/Units 20:07 08: 08:23 WBC 2.8 L (3.8-10.6) k/uL RBC 3.93 L (4.30-5.90) m/uL Hgb 9.3 L (13.0-17.5) gm/dL Hct 29.2 L (39.0-53.0) % MCV 74.3 L (80.0-100.0) fL MCH 23.8 L (25.0-35.0) pg RDW 20.3 H (11.5-15.5) % Plt Count 88 L (150-450) k/uL Sodium 133 L (137-145) mmol/L Chloride 91 L (98-107) mmol/L Carbon Dioxide 39 H (22-30) mmol/L Glucose 126 H (74-99) mg/dL POC Glucose (mg/dL) 146 H (70-110) mg/dL Calcium 8.0 L (8.4-10.2) mg/dL Albumin 3.4 L (3.5-5.0) g/dL
--- NOTE | 2022-08-04 16:54 | P.PN ---
Subjective Progress Note Date: 08/04/22 Principal diagnosis: Pancytopenia, Colon mass In follow-up spoke with patient, is at the bedside. Reviewed iron and B12 deficiency, patient has been supplemented daily while inpatient. We reviewed the findings on his colonoscopy, sigmoid mass. Patient reports that he was passing stool during his prep, has not had a bowel movement since. Patient denies any abdominal or rectal pain at this time, no visible bleeding. Objective - Vital Signs Vital signs: Vital Signs Temp 97.4 F L 08/04/22 11:26 Pulse 67 08/04/22 11:26 Resp 18 08/04/22 11:26 BP 99/61 08/04/22 11:26 Pulse Ox 98 08/04/22 11:26 FiO2 Intake & Output 08/03/22 08/04/22 08/04/22 18:59 06:59 18:59 Intake Total 540 Output Total 350 Balance 190 Weight 71 kg 70.5 kg Intake: IV 300 Oral 240 Output: Urine 350 Other: Voiding Method Toilet Toilet Toilet # Voids 1 1 - Constitutional General appearance: Present: average body habitus, cooperative, no acute distress - EENT Eyes: Present: anicteric sclerae, EOMI ENT: Present: hearing grossly normal - Respiratory Details: resp even and unlabored - Peripheral edema leg Peripheral Edema: bilateral: None - Integumentary Integumentary: Present: normal - Neurologic Neurologic: Present: CNII-XII intact - Musculoskeletal Musculoskeletal: Present: strength equal bilaterally - Psychiatric Psychiatric: Present: A&O x's 3, appropriate affect, intact judgment & insight - Labs CBC & Chem 7: 08/04/22 08:23 08/04/22 08:23 Labs: Abnormal Lab Results - Last 24 Hours (Table) 08/03/22 08/04/22 08/04/22 Range/Units 20:07 08:23 08:23 WBC 2.8 L (3.8-10.6) k/uL RBC 3.93 L (4.30-5.90) m/uL Hgb 9.3 L (13.0-17.5) gm/dL Hct 29.2 L (39.0-53.0) % MCV 74.3 L (80.0-100.0) fL MCH 23.8 L (25.0-35.0) pg RDW 20.3 H (11.5-15.5) % Plt Count 88 L (150-450) k/uL Sodium 133 L (137-145) mmol/L Chloride 91 L (98-107) mmol/L Carbon Dioxide 39 H (22-30) mmol/L Glucose 126 H (74-99) mg/dL POC Glucose (mg/dL) 146 H (70-110) mg/dL Calcium 8.0 L (8.4-10.2) mg/dL Albumin 3.4 L (3.5-5.0) g/dL Assessment and Plan (1) Pancytopenia Status: Acute Priority: High Code(s): D61.818 - OTHER PANCYTOPENIA SNOMED Code(s): 677287489 (2) Rectal mass Status: Acute Priority: High Code(s): K62.89 - OTHER SPECIFIED DISEASES OF ANUS AND RECTUM SNOMED Code(s): 273449675 Plan: Pancytopenia -Workup as follows: TREASURE and rheumatoid factor negative, kappa and lambda light chains are elevated with a normal ratio, no monoclonal paraproteinemia. Iron deficiency noted, B12 low-normal with an elevated MMA, consistent with functional B12 deficit. -Parenteral iron and IM B12 started -CBC is stable. None of his counts currently are so low that that they require intervention. -CT AP and CT head, no evidence of masses or unusual findings -Patient Had an EGD and colonoscopy. Mass was found in the sigmoid colon, this is been biopsied. -PSA 1.1 Discussed the case with Production Supply Equipment Tender after reviewing the notes. See from the chart that the patient is going to go home with hospice. Patient reported to me that he is not a surgical candidate for the colon mass at this time because of his cardiac health. Patient is needing open-heart surgery. I told patient that currently, based on the imaging, this looks like this is a local malignancy and potentially curable with surgery. Told pt it is reasonable to follow through with his Medical Aide and then address colon mass once he is healed up Cardiac surgery. Can't say for certain if the patient will become metastatic in a few months but, worth it to re assess at that time. Patient is also aware that he is free to choose any course of care that he would like including hospice care. Told him that we are available if he has any questions or concerns. Time with Patient: Greater than 30
--- NOTE | 2022-08-05 01:44 | PN ---
PROGRESS NOTE SUBJECTIVE: Mr. Vazquez and his were both here. I had a long discussion with him yesterday. Apparently, Dr. Vazquez also had a long discussion. After listening to the different options, which did not seem encouraging, Mr. Vazquez and his both decided that they will pursue medical therapy and take their chances. They understand the consequences and they wish to be discharged and seek some comfort care/palliative care. OBJECTIVE: VITAL SIGNS: Stable. NECK: No JVD. No further obvious bleeding. CARDIAC: S1, S2 heard normally. Short systolic murmur noted. LUNGS: Reveal fair air entry. ABDOMEN: Soft. Rest of physical exam unchanged. Prognosis remains guarded. MMODL / IJN: [id number] /
[2022-08-05] MEDS ORDERED: HYDROmorphone 0.5 MG/0.5 ML SYRINGE IVP PRN (07:00)
== END 2022-08-04 15:10 | disposition still patient (30) | DRG 280 ==
LOC: EC 00:05 → 3SCARD 03:23 → 2SICU 12:44 → 3SCARD 07-28 15:23
PROVIDERS: ADMIT Family Medicine; ATTEND Family Medicine
PROC: 4A023N7 Measurement of Cardiac Sampling and Pressure, Left Heart, Percutaneous Approach (ICD-10-PCS; 2022-07-26)
PROC: B2111ZZ Fluoroscopy of Multiple Coronary Arteries using Low Osmolar Contrast (ICD-10-PCS; 2022-07-26)
PROC: 0DBN8ZX Excision of Sigmoid Colon, Via Natural or Artificial Opening Endoscopic, Diagnostic (ICD-10-PCS; principal; 2022-08-03 13:20)
PROC: 0DB78ZX Excision of Stomach, Pylorus, Via Natural or Artificial Opening Endoscopic, Diagnostic (ICD-10-PCS; principal; 2022-08-03 13:20)
DX: I21.4 Non-ST elevation (NSTEMI) myocardial infarction (principal); G92.8 Other toxic encephalopathy; N17.0 Acute kidney failure with tubular necrosis; K29.51 Unspecified chronic gastritis with bleeding; D61.818 Other pancytopenia; E87.1 Hypo-osmolality and hyponatremia; E87.3 Alkalosis; R45.851 Suicidal ideations; F05 Delirium due to known physiological condition; D62 Acute posthemorrhagic anemia; C18.7 Malignant neoplasm of sigmoid colon; K92.1 Melena; Z51.5 Encounter for palliative care; I11.0 Hypertensive heart disease with heart failure; E11.649 Type 2 diabetes mellitus with hypoglycemia without coma; I50.9 Heart failure, unspecified; E11.42 Type 2 diabetes mellitus with diabetic polyneuropathy; D50.9 Iron deficiency anemia, unspecified; F32.A Depression, unspecified; I25.10 Atherosclerotic heart disease of native coronary artery without angina pectoris; I25.5 Ischemic cardiomyopathy; E78.5 Hyperlipidemia, unspecified; E53.8 Deficiency of other specified B group vitamins; K57.90 Diverticulosis of intestine, part unspecified, without perforation or abscess without bleeding; E87.5 Hyperkalemia; N14.11 Contrast-induced nephropathy; T50.8X5A Adverse effect of diagnostic agents, initial encounter; T50.2X5A Adverse effect of carbonic-anhydrase inhibitors, benzothiadiazides and other diuretics, initial encounter; R01.1 Cardiac murmur, unspecified; Z95.5 Presence of coronary angioplasty implant and graft; Z79.899 Other long term (current) drug therapy; Z79.82 Long term (current) use of aspirin; Z79.4 Long term (current) use of insulin; Z82.49 Family history of ischemic heart disease and other diseases of the circulatory system; Z79.02 Long term (current) use of antithrombotics/antiplatelets; Z87.891 Personal history of nicotine dependence; Z28.310 Unvaccinated for COVID-19; I25.2 Old myocardial infarction; Z91.199 Patient's noncompliance with other medical treatment and regimen due to unspecified reason
CPT/HCPCS: 36415; 36600; 43239; 45380; 45381; 70450; 71046; 74177; 74230; 80048; 80053; 80061; 80074; 81001; 82525; 82607; 82728; 82747; 82805; 83010; 83036; 83540; 83550; 83615; 83690; 83735; 83880; 83883; 83921; 84153; 84165; 84443; 84484; 85025; 85027; 85045; 85610; 85730; 86038; 86334; 86431; 86850; 86900; 86901; 86920; 87070; 88305; 93005; 93308; 93458; 93880; 93970; 94760; 96365; 96375; 96376; 99291

== ENCOUNTER → 2024-05-26 | Outpatient (CLI) | payer MEDICARE ==
--- NOTE | 2024-05-26 14:25 | CT ---
EXAMINATION TYPE: CT abdomen pelvis wo con DATE OF EXAM: 05/26/2024 1:49 PM COMPARISON: 07/28/2022 CLINICAL INDICATION: Male, 68 years old with history of C18.9 MALIGNANT NEOPLASM OF COLON, UNSPECIFIE D, left flank pain TECHNIQUE: Axial images were obtained from above the diaphragm to the pubic rami in the axial plane a t 5 mm thick sections. Reconstructed images are reviewed on the computer in the coronal plane. CONTRAST: mL of . Study performed without Oral Contrast DLP: 492.5 mGycm, Automated exposure control for dose reduction was used. FINDINGS: Limited CT sections are obtained the lung bases. The lung bases are clear. Coronary artery calcific ation is noted. CT ABDOMEN: Liver: Normal Spleen: Normal Pancreas: Normal Adrenal glands: The adrenal glands are normal. Gallbladder: Normal Kidneys: No masses are evident. No hydronephrosis is present. No cysts are present. No renal stone s are evident. Aorta: Vascular calcification is within the aorta. Inferior vena cava: Normal. CT PELVIS: There may be some bowel wall thickening in the mid to distal sigmoid colon. Image 125. Findings can b e related to the patient's reported neoplasm. Bowel otherwise appears within normal limits. No obstru ction is evident. No suspicious dilated loops of bowel are evident. Appendix: Normal as visualized. Urinary bladder: Normal. Genitourinary structures: Prostate is prominent Osseous structures: No suspicious lytic or sclerotic lesions. IMPRESSION: 1. Thickening of mid sigmoid colon suspicious for patient's reported neoplasm. [facility], , 05/26/2024 2:23 PM
== END | disposition home or self-care (01) ==
LOC: RADCTMAIN 13:14
PROVIDERS: ATTEND Family Medicine
DX: C18.9 Malignant neoplasm of colon, unspecified (principal); K63.89 Other specified diseases of intestine
CPT/HCPCS: 74176

== ENCOUNTER 2024-10-23 12:34 | Observation (INO) | payer MEDICARE ==
[2024-10-23] MEDS: SODIUM CHLORIDE 0.9% 1,000 ML IV STA (13:01)
[2024-10-23] MEDS: METOCLOPRAMIDE 5 MG/ML 2 ML VIAL IVP STA (13:01)
[2024-10-23] MEDS: MORPHINE SULFATE 4 MG/ML SYRINGE IVP STA ×2 (13:01→18:37)
[2024-10-23 13:24] LABS: VBG HCO3 24.0 mmol/L (24-28); VBG PCO2 33.0 mmHg (37-51); VBG PH 7.47 (7.31-7.41)
[2024-10-23 13:25] LABS: Basophils # (A) 0.04 10*3/uL (0.00-0.10); Basophils % (A) 0.4 %; Eosinophils # (A) 0.05 10*3/uL (0.04-0.35); Eosinophils % (A) 0.5 %; HCT 34.8 % (39.6-50.0); HGB 12.5 g/dL (13.0-17.0); Immature Platelet Fraction 10.0 % (1.1-6.1); Lymphocytes # (A) 0.64 10*3/uL (0.90-5.00); Lymphocytes % (A) 6.0 %; MCH 30.3 pg (27.0-32.0); MCHC 35.9 g/dL (32.0-37.0); MCV 84.5 fL (80.0-97.0); Monocytes # (A) 0.48 10*3/uL (0.20-1.00); Monocytes % (A) 4.5 %; Neutrophils # (A) 9.35 10*3/uL (1.80-7.70); Neutrophils % (A) 87.7 %; Platelet Count 118 10*3/uL (140-440); RBC 4.12 10*6/uL (4.40-5.60); RDW 12.4 % (11.5-14.5); WBC 10.66 10*3/uL (4.50-10.00)
[2024-10-23] MEDS: SODIUM CHLORIDE 0.9% 500 ML 500 ML IV STA (13:40)
[2024-10-23 13:53] LABS: INR 1.0 (<1.2); Partial Thromboplastin Time 22.9 sec (22.0-30.0); Prothrombin Time 11.1 sec (10.0-12.5)
[2024-10-23 14:06] LABS: ALT 13 U/L (4-49); AST 18 U/L (17-59); African American GFR (CKD) 77 (>60 ml/min/1.73 sqM); Albumin 3.8 g/dL (3.5-5.0); Alkaline Phosphatase 295 U/L (38-126); Anion Gap 18 mmol/L; Blood Urea Nitrogen 34 mg/dL (9-20); Calcium 9.1 mg/dL (8.4-10.2); Carbon Dioxide 19 mmol/L (22-30); Chloride 94 mmol/L (98-107); Lipase 152 U/L (23-300); Magnesium 2.2 mg/dL (1.6-2.3); Non-African American GFR(CKD) 66 (>60 ml/min/1.73 sqM); Potassium 4.4 mmol/L (3.5-5.1); Sodium 131 mmol/L (137-145); Total Protein 6.7 g/dL (6.3-8.2)
--- NOTE | 2024-10-23 14:06 | XR ---
EXAMINATION TYPE: XR chest 2V DATE OF EXAM: 10/23/2024 2:01 PM COMPARISON: Chest radiographs from 08/01/2022. CLINICAL INDICATION: Male, 69 years old with history of Chest Pain; [facility] TECHNIQUE: XR chest 2V Frontal and lateral views of the chest. FINDINGS: Lungs/Pleura: There is no evidence of pleural effusion, focal consolidation, or pneumothorax. Pulmonary vascularity: Unremarkable. Heart/mediastinum: Cardiomediastinal silhouette is unremarkable. Musculoskeletal: No acute osseous pathology. IMPRESSION: No acute cardiopulmonary disease/process. [facility], , 10/23/2024 2:04 PM
[2024-10-23 14:14] LABS: Glucose 519 mg/dL (74-99)
--- NOTE | 2024-10-23 14:47 | ED ---
General Adult HPI - General Source: patient, RN notes reviewed Mode of arrival: EMS Limitations: no limitations <Berny Ferrari - Last Filed: 10/23/24 14:45> <Radha Pierce - Last Filed: 10/23/24 22:16> - General Chief complaint: Nausea/Vomiting/Diarrhea Stated complaint: Hyperglycemia Time Seen by Provider: 10/23/24 12:36 - History of Present Illness Initial comments: 69-year-old male presents emergency department complaint of abdominal pain, chest pain, nausea vomiting states not felt well the last several days. Patient is known insulin-dependent diabetic states he has not been taking his insulin also states he is not taking his other medications. He states he had a prior cardiac stent. He complains of chest pain associated nausea vomiting states blood sugars over 500. Patient did receive Zofran by EMS. Patient states he had no prior abdominal surgeries (Berny Ferrari) - Related Data Home Medications Medication Instructions Recorded Confirmed Pregabalin [Lyrica] 200 mg PO TID 09/14/14 10/23/24 Insulin Degludec [Tresiba 50 units SQ HS 06/16/22 10/23/24 Flextouch U-100 Pen] Metoprolol Tartrate [Lopressor] 12.5 mg PO BID 10/23/24 10/23/24 Previous Rx's Medication Instructions Recorded Furosemide [Lasix] 40 mg PO DAILY #30 tab 08/04/22 Isosorbide Mononitrate ER [Imdur] 30 mg PO DAILY #30 tab 08/04/22 Spironolactone [Aldactone] 25 mg PO DAILY #30 tab 08/04/22 Allergies Allergy/AdvReac Type Severity Reaction Status Date / Time No Known Allergies Allergy Verified 10/23/24 19:18 Review of Systems ROS Other: All systems not noted in ROS Statement are negative. <Berny Ferrari - Last Filed: 10/23/24 14:45> ROS Other: All systems not noted in ROS Statement are negative. <Radha Pierce - Last Filed: 10/23/24 22:16> ROS Statement: Those systems with pertinent positive or pertinent negative responses have been documented in the HPI. Past Medical History Past Medical History: Coronary Artery Disease (CAD), Chest Pain / Angina, Diabetes Mellitus, Hyperlipidemia, Hypertension Additional Past Medical History / Comment(s): IDDM type II, L knee pain due to tendon problem, bilateral foot pain. History of Any Multi-Drug Resistant Organisms: None Reported Past Surgical History: Heart Catheterization With Stent Additional Past Surgical History / Comment(s): 02/11/16 cath with stent to cx. Other surgical hx: 09/14/14 HEART CATH with stent to RCA (TRIPLE VESSEL DISEASE FOUND). Past Anesthesia/Blood Transfusion Reactions: No Reported Reaction Additional Past Anesthesia/Blood Transfusion Reaction / Comment(s): NO PAST SURGURIES Date of Last Stent Placement:: 2015 Past Psychological History: No Psychological Hx Reported Smoking Status: Never smoker Past Alcohol Use History: None Reported Past Drug Use History: None Reported - Past Family History Son(s) Family Medical History: Cancer Brother(s) Additional Family Medical History / Comment(s): Pt had one brother who had a CVA at the age of 68yrs and another brother who had a AL at the age of 61yrs. Father History Unknown: Yes Additional Family Medical History / Comment(s): Patient reports that his dad mor e than likely from EtOH abuse Mother History Unknown: Yes Family Medical History: Cancer (Unknown type of cancer) <Berny Ferrari - Last Filed: 10/23/24 14:45> General Exam Limitations: no limitations General appearance: alert, in no apparent distress Head exam: Present: atraumatic, normocephalic, normal inspection Eye exam: Present: normal appearance, PERRL, EOMI. Absent: scleral icterus, conjunctival injection, periorbital swelling ENT exam: Present: normal exam, normal oropharynx, mucous membranes moist Neck exam: Present: normal inspection, full ROM. Absent: tenderness, meningismus, lymphadenopathy Respiratory exam: Present: normal lung sounds bilaterally. Absent: respiratory distress, wheezes, rales, rhonchi, stridor Cardiovascular Exam: Present: regular rate, normal rhythm, normal heart sounds. Absent: systolic murmur, diastolic murmur, rubs, gallop, clicks GI/Abdominal exam: Present: soft, tenderness, normal bowel sounds. Absent: distended, guarding, rebound, rigid Back exam: Absent: CVA tenderness (R), CVA tenderness (L) Neurological exam: Present: alert, oriented X3 <Berny Ferrari - Last Filed: 10/23/24 14:45> Course <Radha Pierce - Last Filed: 10/23/24 22:16> Vital Signs 10/23/24 10/23/24 10/23/24 12:43 14:54 18:44 Temperature 98.1 F 98.2 F Pulse Rate 82 89 80 Respiratory 20 18 18 Rate Blood Pressure 155/81 113/60 144/60 O2 Sat by Pulse 100 97 98 Oximetry 10/23/24 19:42 Temperature Pulse Rate 74 Respiratory 18 Rate Blood Pressure 133/74 O2 Sat by Pulse 95 Oximetry - Reevaluation(s) Reevaluation #1: 10/23/24 17:[address] Vazquez who accepts admission. (Radha Pierce) EKG Findings - EKG Comments: EKG Findings:: EKG performed at 12: 54 sinus rhythm with a rate of 78 [place] 197 QRS 117 QT/QTc 440/474 - EKG Results: EKG: interpreted by ERMD <Berny Ferrari - Last Filed: 10/23/24 14:45> Medical Decision Making - Lab Data Result diagrams: 10/23/24 13:11 10/23/24 13:11 <Berny Ferrari - Last Filed: 10/23/24 14:45> - Lab Data Result diagrams: 10/23/24 13:11 10/23/24 13:11 - Radiology Data Radiology results: report reviewed, image reviewed <Radha Pierce - Last Filed: 10/23/24 22:16> - Medical Decision Making Was pt. sent in by a medical professional or institution (, PA, STRATEGIC ACCOUNT EXECUTIVE, urgent care, hospital, or snf...) When possible be specific @ -No Did you speak to anyone other than the patient for history (EMS, parent, family, police, friend...)? What history was obtained from this source @ -No Did you review nursing and triage notes (agree or disagree)? Why? @ -I reviewed and agree with nursing and triage notes Were old charts reviewed (outside hosp., previous admission, EMS record, old EKG, old radiological studies, urgent care reports/EKG's, snf records)? Report findings @ -No old charts were reviewed Differential Diagnosis (chest pain, altered mental status, abdominal pain women, abdominal pain men, vaginal bleeding, weakness, fever, dyspnea, syncope, headache, dizziness, GI bleed, back pain, seizure, CVA, palpatations, mental health, musculoskeletal)? @ -Differential Chest Pain:Stable Angina, Unstable Angina, STEMI, NSTEMI Aortic Dissection, Pneumothorax, Musculoskeletal, Esophageal Spasm GERD, Cholecystitis, Pancreatitis, Zoster, this is not meant to be an all-inclusive list. EKG interpreted by me (3pts min.). @ -As above X-rays interpreted by me (1pt min.). @ -CXR interpreted me negative for acute focal consolidations or pneumothorax. CT interpreted by me (1pt min.). @ -CT pelvis showing nonspecific hyperdense material layering in the urinary bladder which could represent blood products versus prior contrast excretion. Redemonstration of eccentric wall thickening of sigmoid colon likely related to patient's reported colonic neoplasm. Distal colonic diverticulosis without evidence of acute diverticulitis. U/S interpreted by me (1pt. min.). @ -None done What testing was considered but not performed or refused? (CT, X-rays, U/S, labs)? Why? @ -None What meds were considered but not given or refused? Why? @ -None Did you discuss the management of the patient with other professionals (professionals i.e. , CATHRYN, STRATEGIC ACCOUNT EXECUTIVE, lab, RT, psych nurse, geriatric social work professor, carriage feeder, teacher, aoc operations intelligence officer, case specialist)? Give summary @ -Case discussed with Berny Ferrari PA-C as patient signed out to me at his shift completion. Case discussed with Dr. Vazquez who accepts admission. Was smoking cessation discussed for >3mins.? @ -No Was critical care preformed (if so, how long)? @ -No Were there social determinants of health that impacted care today? How? (Homelessness, low income, unemployed, alcoholism, drug addiction, tra nsportation, low edu. Level, literacy, decrease access to med. care, assisted, rehab)? @ -No Was there de-escalation of care discussed even if they declined (Discuss DNR or withdrawal of care, Hospice)? DNR status @ -No What co-morbidities impacted this encounter? (DM, HTN, Smoking, COPD, CAD, Cancer, CVA, ARF, Chemo, Hep., AIDS, mental health diagnosis, sleep apnea, morbid obesity)? @ -Diabetes mellitus, CAD, hypertension, hyperlipidemia Was patient admitted / discharged? Hospital course, mention meds given and route, prescriptions, significant lab abnormalities, going to OR and other pertinent info. @ -Admitted. 69-year-old male presented the ER for evaluation of chest pain, abdominal pain, nausea and vomiting. Patient signed out to me from previous shift Berny Ferrari PA-C pending CT abd/pelvis and disposition. Vital signs stable. Laboratories are remarkable for WBC 10.6, hemoglobin 12.5. Initial troponin 0.024, serial troponins pending. Lactic 3.1 patient hyperglycemic 519 for which she received IV insulin with improvement to 367. Chest x-ray negative. CT abdomen pelvis showing nonspecific hyperdense material layering urinary bladder. Redemonstration of eccentric wall thickening of sigmoid colon concerning for neoplasm. Distal colonic diverticulosis. No acute diverticulitis. Patient received symptomatic treatment in the emergency department, with improvement. Upon reevaluation, patient resting comfortably on stretcher no signs of acute distress. Patient educated on today's findings including concern of malignancy, questions answered. Given patient's known cardiac history admission was considered and accepted by Dr. Vazquez for cardiac rule out and further evaluation. Cardiology on consult. Patient agreeable. Patient in stable condition for further evaluation treatment Case discussed with ED attending Dr. Aguiar Undiagnosed new problem with uncertain prognosis? @ -No Drug Therapy requiring intensive monitoring for toxicity (Heparin, Nitro, Insulin, Cardizem)? @ -No Were any procedures done? @ -No Diagnosis/symptom? @ -Chest pain/hyperglycemia/abnormal CT scan rule out malignancy/medication noncompliance Acute, or Chronic, or Acute on Chronic? @ -Acute Uncomplicated (without systemic symptoms) or Complicated (systemic symptoms)? @ -Complicated Side effects of treatment? @ -No Exacerbation, Progression, or Severe Exacerbation? @ -No Poses a threat to life or bodily function? How? (Chest pain, USA, AL, pneumonia, PE, COPD, DKA, ARF, appy, cholecystitis, CVA, Diverticulitis, Homicidal, Suicidal, threat to staff... and all critical care pts) @ -Yes, cannot rule out ACS which can lead to lethal cardiac arrhythmias. Cannot also rule out malignancy. (Radha Pierce) - Lab Data Lab Results 06/30/25 06/30/25 06/30/25 Range/Units 13:11 13:11 13:11 WBC 10.66 H (4.50-10.00) 10*3/uL RBC 4.12 L (4.40-5.60) 10*6/uL Hgb 12.5 L (13.0-17.0) g/dL Hct 34.8 L (39.6-50.0) % MCV 84.5 (80.0-97.0) fL MCH 30.3 (27.0-32.0) pg MCHC 35.9 (32.0-37.0) g/dL Plt Count 118 L (140-440) 10*3/uL MPV 12.6 H (9.5-12.2) fL Immature Gran % (Auto) 0.9 % Neutrophils % 87.7 % Lymphocytes % 6.0 % Monocytes % 4.5 % Eosinophils % 0.5 % Basophils % 0.4 % Immature Gran # 0.10 H (0.00-0.04) 10*3/uL Neutrophils # 9.35 H (1.80-7.70) 10*3/uL Lymphocytes # 0.64 L (0.90-5.00) 10*3/uL Monocytes # 0.48 (0.20-1.00) 10*3/uL Eosinophils # 0.05 (0.04-0.35) 10*3/uL Basophils # 0.04 (0.00-0.10) 10*3/uL Immature Plt Fraction 10.0 H (1.1-6.1) % PT 11.1 (10.0-12.5) sec INR 1.0 (<1.2) APTT 22.9 (22.0-30.0) sec VBG pH (7.31-7.41) VBG pCO2 (37-51) mmHg VBG HCO3 (24-28) mmol/L Sodium 131 L (137-145) mmol/L Potassium 4.4 (3.5-5.1) mmol/L Chloride 94 L (98-107) mmol/L Carbon Dioxide 19 L (22-30) mmol/L Anion Gap 18 mmol/L BUN 34 H (9-20) mg/dL Creatinine 1.12 (0.66-1.25) mg/dL Est GFR (CKD-EPI)AfAm 77 (>60 ml/min/1.73 sqM) Est GFR (CKD-EPI)NonAf 66 (>60 ml/min/1.73 sqM) Glucose 519 H* (74-99) mg/dL POC Glucose (mg/dL) (70-110) mg/dL POC Glu Aviation Electronic Warfare Operator ID Lactic Ac Sepsis Rflx Plasma Lactic Acid Kemar (0.7-2.0) mmol/L Calcium 9.1 (8.4-10.2) mg/dL Magnesium 2.2 (1.6-2.3) mg/dL Total Bilirubin 1.0 (0.2-1.3) mg/dL AST 18 (17-59) U/L ALT 13 (4-49) U/L Alkaline Phosphatase 295 H (38-126) U/L Troponin I (0.000-0.034) ng/mL Total Protein 6.7 (6.3-8.2) g/dL Albumin 3.8 (3.5-5.0) g/dL Lipase 152 (23-300) U/L 10/23/24 10/23/24 10/23/24 Range/Units 13:11 13:11 13:11 WBC (4.50-10.00) 10*3/uL RBC (4.40-5.60) 10*6/uL Hgb (13.0-17.0) g/dL Hct (39.6-50.0) % MCV (80.0-97.0) fL MCH (27.0-32.0) pg MCHC (32.0-37.0) g/dL Plt Count (140-440) 10*3/uL MPV (9.5-12.2) fL Immature Gran % (Auto) % Neutrophils % % Lymphocytes % % Monocytes % % Eosinophils % % Basophils % % Immature Gran # (0.00-0.04) 10*3/uL Neutrophils # (1.80-7.70) 10*3/uL Lymphocytes # (0.90-5.00) 10*3/uL Monocytes # (0.20-1.00) 10*3/uL Eosinophils # (0.04-0.35) 10*3/uL Basophils # (0.00-0.10) 10*3/uL Immature Plt Fraction (1.1-6.1) % PT (10.0-12.5) sec INR (<1.2) APTT (22.0-30.0) sec VBG pH 7.47 H (7.31-7.41) VBG pCO2 33 L (37-51) mmHg VBG HCO3 24 (24-28) mmol/L Sodium (137-145) mmol/L Potassium (3.5-5.1) mmol/L Chloride (98-107) mmol/L Carbon Dioxide (22-30) mmol/L Anion Gap mmol/L BUN (9-20) mg/dL Creatinine (0.66-1.25) mg/dL Est GFR (CKD-EPI)AfAm (>60 ml/min/1.73 sqM) Est GFR (CKD-EPI)NonAf (>60 ml/min/1.73 sqM) Glucose (74-99) mg/dL POC Glucose (mg/dL) (70-110) mg/dL POC Glu Aviation Electronic Warfare Operator ID Lactic Ac Sepsis Rflx Plasma Lactic Acid Kemar 3.1 H* (0.7-2.0) mmol/L Calcium (8.4-10.2) mg/dL Magnesium (1.6-2.3) mg/dL Total Bilirubin (0.2-1.3) mg/dL AST (17-59) U/L ALT (4-49) U/L Alkaline Phosphatase (38-126) U/L Troponin I 0.024 (0.000-0.034) ng/mL Total Protein (6.3-8.2) g/dL Albumin (3.5-5.0) g/dL Lipase (23-300) U/L 10/23/24 10/23/24 10/23/24 Range/Units 14:14 15:49 16:29 WBC (4.50-10.00) 10*3/uL RBC (4.40-5.60) 10*6/uL Hgb (13.0-17.0) g/dL Hct (39.6-50.0) % MCV (80.0-97.0) fL MCH (27.0-32.0) pg MCHC (32.0-37.0) g/dL Plt Count (140-440) 10*3/uL MPV (9.5-12.2) fL Immature Gran % (Auto) % Neutrophils % % Lymphocytes % % Monocytes % % Eosinophils % % Basophils % % Immature Gran # (0.00-0.04) 10*3/uL Neutrophils # (1.80-7.70) 10*3/uL Lymphocytes # (0.90-5.00) 10*3/uL Monocytes # (0.20-1.00) 10*3/uL Eosinophils # (0.04-0.35) 10*3/uL Basophils # (0.00-0.10) 10*3/uL Immature Plt Fraction (1.1-6.1) % PT (10.0-12.5) sec INR (<1.2) APTT (22.0-30.0) sec VBG pH (7.31-7.41) VBG pCO2 (37-51) mmHg VBG HCO3 (24-28) mmol/L Sodium (137-145) mmol/L Potassium (3.5-5.1) mmol/L Chloride (98-107) mmol/L Carbon Dioxide (22-30) mmol/L Anion Gap mmol/L BUN (9-20) mg/dL Creatinine (0.66-1.25) mg/dL Est GFR (CKD-EPI)AfAm (>60 ml/min/1.73 sqM) Est GFR (CKD-EPI)NonAf (>60 ml/min/1.73 sqM) Glucose (74-99) mg/dL POC Glucose (mg/dL) 367 H (70-110) mg/dL POC Glu Aviation Electronic Warfare Operator ID Genia Malin Lactic Ac Sepsis Rflx Y Plasma Lactic Acid Kemar 1.8 (0.7-2.0) mmol/L Calcium (8.4-10.2) mg/dL Magnesium (1.6-2.3) mg/dL Total Bilirubin (0.2-1.3) mg/dL AST (17-59) U/L ALT (4-49) U/L Alkaline Phosphatase (38-126) U/L Troponin I (0.000-0.034) ng/mL Total Protein (6.3-8.2) g/dL Albumin (3.5-5.0) g/dL Lipase (23-300) U/L Disposition <Berny Ferrari - Last Filed: 10/23/24 14:45> Time of Disposition: 17:37 <Radha Pierce - Last Filed: 10/23/24 22:16> Clinical Impression: Chest pain, Hyperglycemia, Abnormal CT scan Disposition: ADMITTED IP TO THIS HOSP Condition: Stable
[2024-10-23] MEDS: INSULIN REGULAR 100 UNIT/ML VIAL (IV) IV ONE (14:49)
[2024-10-23] MEDS: SODIUM CHLORIDE 0.9% 1,000 ML IV SCH ×2 (14:51→19:41)
[2024-10-23 15:51] LABS: Glucose,Whole Blood 367 mg/dL (70-110)
--- NOTE | 2024-10-23 17:08 | CT ---
EXAMINATION TYPE: CT abdomen pelvis w con CT DLP: 1398.4 mGycm, Automated exposure control for dose reduction was used. DATE OF EXAM: 10/23/2024 4:40 PM COMPARISON: CT abdomen pelvis 05/26/2024 CLINICAL INDICATION:Male, 69 years old with history of abd pain; N/V/D for the past few days and then CP started yesterday. TECHNIQUE: Standard CT of the abdomen and pelvis following the administration of 100 cc of Isovue 3 00 IV contrast material. Coronal and sagittal reformats were performed. FINDINGS: LOWER CHEST: Posterior dependent subsegmental atelectasis is noted. Moderate coronary arterial calcif ications. Small aortic valvular calcifications. Elevation of the right hemidiaphragm. ABDOMEN LIVER: Unremarkable GALLBLADDER AND BILE DUCTS: Unremarkable. PANCREAS: Unremarkable. SPLEEN: Unremarkable. ADRENAL GLANDS: Unremarkable. KIDNEYS AND URETERS: No evidence of hydronephrosis or renal calculus. The kidneys enhance symmetrical ly. Contrast is demonstrated within both collecting systems and proximal ureters on the delayed phase . Circumaortic left renal vein. PELVIS BLADDER: Hyperdense material layering within the urinary bladder. REPRODUCTIVE: Coarse calcifications of the prostate gland are identified. ABDOMEN & PELVIS STOMACH AND BOWEL: Stomach and duodenum are unremarkable. Demonstration of eccentric wall thickening of the sigmoid colon measuring grossly 3.7 x 1.6 cm. There is upstream distal colonic diverticulosis. No surrounding inflammatory changes to suggest acute diverticulitis. No evidence for obstruction. Th e appendix is within normal limits. PERITONEUM: No evidence of pneumoperitoneum or free fluid. VASCULATURE: Mild to moderate atherosclerotic calcifications are present throughout the abdominal aor ta and its branches. No evidence of aortic aneurysm. MUSCULOSKELETAL: No acute osseous abnormalities. No aggressive osseous lesion. Schmorl's node involvi ng the superior endplate of the L5 vertebral body. Mild multilevel degenerative disc disease. DISH of the visualized lower thoracic spine. LYMPH NODES: No evidence for lymphadenopathy. SOFT TISSUE/ABDOMINAL WALL: Unremarkable IMPRESSION: 1. Nonspecific hyperdense material layering within the urinary bladder which could represent blood pr oducts versus prior contrast excretion. Correlate with urinalysis. 2. Redemonstration of eccentric wall thickening of the sigmoid colon likely related to patient's repo rted colonic neoplasm. 3. Distal colonic diverticulosis without evidence for acute diverticulitis. [facility], , 10/23/2024 5:05 PM
[2024-10-23] MEDS ORDERED: NALOXONE 0.4 MG/ML 1 ML VIAL IV PRN (17:35)
[2024-10-23] MEDS ORDERED: ACETAMINOPHEN TAB 325 MG TAB PO PRN (17:35)
[2024-10-23 17:47] LABS: Bilirubin,Urine Negative (Negative); Blood,Urine Negative (Negative); Color,Urine Colorless; Glucose,Urine (UA) 4+ (Negative); Leukocyte Esterase,Urine Negative (Negative); Nitrite,Urine Negative (Negative); PH, Urine 5.0 (5.0-8.0); Protein,Urine Negative (Negative); Urobilinogen,Urine <2.0 mg/dL (<2.0)
[2024-10-23 17:48] LABS: Specific Gravity,Urine >1.050 (1.001-1.035)
[2024-10-23 17:49] LABS: Ketones,Urine 2+ (Negative)
[2024-10-23] MEDS: ONDANSETRON 4 MG/2 ML VIAL IVP PRN (18:37)
[2024-10-23 19:48] LABS: Glucose,Whole Blood 351 mg/dL (70-110)
[2024-10-23] MEDS: HEPARIN SOD,PORK IN 0.45% NACL 25,000 UNIT in 0.45% NACL 1 250ML.BAG IV SCH (20:52)
[2024-10-23] MEDS: HEPARIN SODIUM 1,000 UN/ML (10ML VL) IV ONE (20:52)
[2024-10-23] MEDS: ASPIRIN 81 MG PO STA (20:54)
[2024-10-24] MEDS: HEPARIN SODIUM 1,000 UN/ML (10ML VL) IV PRN (04:49)
[2024-10-24 06:10] LABS: Glucose,Whole Blood 219 mg/dL (70-110)
[2024-10-24 07:42] VITALS: RESP 16
--- NOTE | 2024-10-24 09:08 | P.HPIM ---
History of Present Illness H&P Date: 10/24/24 This is a 69 year old male who presented to the emergency department with complaints of chest pain and abdominal pain. Patient also reports nausea and some vomiting. He has not been feeling well for the last few days. Blood glucose has been elevated at home. Patient denies any further chest pain this morning. Troponin elevated on admission. Cardiology has been consulted. Further medical history as noted below. Review of Systems Constitutional: Reports fatigue, Denies chills, Denies fever Cardiovascular: Reports chest pain, Denies dyspnea on exertion Respiratory: Denies cough, Denies dyspnea Gastrointestinal: Reports abdominal pain, Reports nausea, Reports vomiting Musculoskeletal: Denies arm numbness/tingling, Denies leg numbness/tingling Neurological: Denies headaches, Denies weakness Past Medical History Past Medical History: Coronary Artery Disease (CAD), Chest Pain / Angina, D iabetes Mellitus, Hyperlipidemia, Hypertension, Myocardial Infarction ([place]) Additional Past Medical History / Comment(s): IDDM type II, L knee pain due to tendon problem, bilateral foot pain. Last Myocardial Infarction Date:: Unsure History of Any Multi-Drug Resistant Organisms: None Reported Past Surgical History: Heart Catheterization With Stent Additional Past Surgical History / Comment(s): 02/11/16 cath with stent to cx. Other surgical hx: 09/14/14 HEART CATH with stent to RCA (TRIPLE VESSEL DISEASE FOUND). Past Anesthesia/Blood Transfusion Reactions: No Reported Reaction Additional Past Anesthesia/Blood Transfusion Reaction / Comment(s): NO PAST SURGURIES Date of Last Stent Placement:: 2015 Past Psychological History: No Psychological Hx Reported Additional Psychological History / Comment(s): Patient has had recent suicidal ideation Smoking Status: Never smoker Past Alcohol Use History: None Reported Additional Past Alcohol Use History / Comment(s): QUIT SMOKING 40 YEARS AGO Past Drug Use History: None Reported - Past Family History Son(s) Family Medical History: Cancer Brother(s) Additional Family Medical History / Comment(s): Pt had one brother who had a CVA at the age of 68yrs and another brother who had a GA at the age of 61yrs. Father History Unknown: Yes Additional Family Medical History / Comment(s): Patient reports that his dad more than likely from EtOH abuse Mother History Unknown: Yes Family Medical History: Cancer Medications and Allergies Home Medications Medication Instructions Recorded Confirmed Type Pregabalin [Lyrica] 200 mg PO TID 09/14/14 10/23/24 History Insulin Degludec [Tresiba 50 units SQ HS 06/16/22 10/23/24 History Flextouch U-100 Pen] Furosemide [Lasix] 40 mg PO DAILY #30 tab 08/04/22 10/23/24 Rx Isosorbide Mononitrate ER [Imdur] 30 mg PO DAILY #30 tab 08/04/22 10/23/24 Rx Spironolactone [Aldactone] 25 mg PO DAILY #30 tab 08/04/22 10/23/24 Rx Metoprolol Tartrate [Lopressor] 12.5 mg PO BID 10/23/24 10/23/24 History Allergies Allergy/AdvReac Type Severity Reaction Status Date / Time No Known Allergies Allergy Verified 10/23/24 19:18 Physical Exam Vitals: Vital Signs Temp Pulse Pulse Resp BP BP Pulse Ox 10/24/24 07:00 97.6 F 69 16 118/61 95 10/24/24 02:00 97.8 F 70 17 119/68 99 10/23/24 23:24 98.4 F 67 18 115/65 96 10/23/24 19:42 74 18 133/74 95 10/23/24 18:44 98.2 F 80 18 144/60 98 10/23/24 14:54 89 18 113/60 97 10/23/24 12:43 98.1 F 82 20 155/81 100 Intake and Output 10/23/24 10/24/24 10/24/24 22:59 06:59 14:59 Intake Total 64.912 Balance 64.912 Intake: Intake, IV Titration 64.912 Amount Heparin Sod,Pork in 0.45% 64.912 NaCl 25,000 unit In 0.45 % NaCl 1 250ml.bag @ 12 UNITS/KG/HR 8.165 mls/hr IV .Q24H [facility] Rx#: [id number] Oral 0 Other: Voiding Method Toilet Weight 68.039 kg - Constitutional General appearance: cooperative, no acute distress - EENT Eyes: PERRLA - Neck Neck: no lymphadenopathy, normal ROM, no rigidity - Respiratory Respiratory: bilateral: diminished - Cardiovascular Heart sounds: normal: S1, S2 - Gastrointestinal General gastrointestinal: soft, no tenderness - Integumentary Integumentary: normal, normal turgor - Psychiatric Psychiatric: A&O x's 3 Results CBC & Chem 7: 10/23/24 13:11 10/23/24 13:11 Labs: Abnormal Lab Results - Last 24 Hours (Table) 10/23/24 10/23/24 10/23/24 Range/Units 13:11 13:11 13:11 WBC 10.66 H (4.50-10.00) 10*3/uL RBC 4.12 L (4.40-5.60) 10*6/uL Hgb 12.5 L (13.0-17.0) g/dL Hct 34.8 L (39.6-50.0) % Plt Count 118 L (140-440) 10*3/uL MPV 12.6 H (9.5-12.2) fL Immature Gran # 0.10 H (0.00-0.04) 10*3/uL Neutrophils # 9.35 H (1.80-7.70) 10*3/uL Lymphocytes # 0.64 L (0.90-5.00) 10*3/uL Immature Plt Fraction 10.0 H (1.1-6.1) % VBG pH (7.31-7.41) VBG pCO2 (37-51) mmHg Sodium 131 L (137-145) mmol/L Chloride 94 L (98-107) mmol/L Carbon Dioxide 19 L (22-30) mmol/L BUN 34 H (9-20) mg/dL Glucose 519 H* (74-99) mg/dL POC Glucose (mg/dL) (70-110) mg/dL Plasma Lactic Acid [place] 3.1 H* (0.7-2.0) mmol/L Alkaline Phosphatase 295 H (38-126) U/L Troponin I (0.000-0.034) ng/mL Ur Specific [place] (1.001-1.035) Urine Glucose (UA) (Negative) Urine Ketones (Negative) 10/23/24 10/23/24 10/23/24 Range/Units 13:11 15:49 17:22 WBC (4.50-10.00) 10*3/uL RBC (4.40-5.60) 10*6/uL Hgb (13.0-17.0) g/dL Hct (39.6-50.0) % Plt Count (140-440) 10*3/uL MPV (9.5-12.2) fL Immature Gran # (0.00-0.04) 10*3/uL Neutrophils # (1.80-7.70) 10*3/uL Lymphocytes # (0.90-5.00) 10*3/uL Immature Plt Fraction (1.1-6.1) % VBG pH 7.47 H (7.31-7.41) VBG pCO2 33 L (37-51) mmHg Sodium (137-145) mmol/L Chloride (98-107) mmol/L Carbon Dioxide (22-30) mmol/L BUN (9-20) mg/dL Glucose (74-99) mg/dL POC Glucose (mg/dL) 367 H (70-110) mg/dL Plasma Lactic Acid [place] (0.7-2.0) mmol/L Alkaline Phosphatase (38-126) U/L Troponin I 0.042 H* (0.000-0.034) ng/mL Ur Specific [place] (1.001-1.035) Urine Glucose (UA) (Negative) Urine Ketones (Negative) 10/23/24 10/23/24 10/24/24 Range/Units 17:30 19:47 06:09 WBC (4.50-10.00) 10*3/uL RBC (4.40-5.60) 10*6/uL Hgb (13.0-17.0) g/dL Hct (39.6-50.0) % Plt Count (140-440) 10*3/uL MPV (9.5-12.2) fL Immature Gran # (0.00-0.04) 10*3/uL Neutrophils # (1.80-7.70) 10*3/uL Lymphocytes # (0.90-5.00) 10*3/uL Immature Plt Fraction (1.1-6.1) % VBG pH (7.31-7.41) VBG pCO2 (37-51) mmHg Sodium (137-145) mmol/L Chloride (98-107) mmol/L Carbon Dioxide (22-30) mmol/L BUN (9-20) mg/dL Glucose (74-99) mg/dL POC Glucose (mg/dL) 351 H 219 H (70-110) mg/dL Plasma Lactic Acid [place] (0.7-2.0) mmol/L Alkaline Phosphatase (38-126) U/L Troponin I (0.000-0.034) ng/mL Ur Specific [place] >1.050 H (1.001-1.035) Urine Glucose (UA) 4+ H (Negative) Urine Ketones 2+ H (Negative) Thrombosis Risk Factor Assmnt - Choose All That Apply Any of the Below Risk Factors Present?: No Each Risk Factor Represents 2 Points: Age 61-74 years Thrombosis Risk Factor Assessment Total Risk Factor Score: 2 Thrombosis Risk Factor Assessment Level: Low Risk Assessment and Plan (1) Chest pain Current Visit: Yes Status: Acute Code(s): R07.9 - CHEST PAIN, UNSPECIFIED SNOMED Code(s): 32733864 (2) Hyperglycemia Current Visit: Yes Status: Acute Code(s): R73.9 - HYPERGLYCEMIA, UNSPECIFIED SNOMED Code(s): 31034147 (3) CAD (coronary artery disease) Current Visit: No Status: Acute Code(s): I25.10 - ATHSCL HEART DISEASE OF [place] CORONARY ARTERY W/O ANG PCTRS SNOMED Code(s): 34148695 (4) Diabetes Current Visit: No Status: Acute Code(s): E11.9 - TYPE 2 DIABETES MELLITUS WITHOUT COMPLICATIONS SNOMED Code(s): 36341310 (5) Hypertension Current Visit: No Status: Acute Code(s): I10 - ESSENTIAL (PRIMARY) HYPERTENSION SNOMED Code(s): 72274861 Plan: Continue home medications. Appreciate cardiology input. Patient seen and evaluated by nurse practitioner, physician in agreement with francis neumann
--- NOTE | 2024-10-24 09:18 | P.CRDCN ---
History of Present Illness History of present illness: HISTORY OF PRESENT ILLNESS: This is a 69-year-old male with a past medical history significant for coronary artery disease, hypertension, hyperlipidemia, and diabetes. Patient follows in the office with Dr. Ramirez but has not been seen in the office since June 2022. We have been asked to see the patient in consultation for chest pain. Patient examined at the bedside. Patient presented to the hospital with a chief complaint of nausea and vomiting. Patient states he has been unable to eat for the past few days. He reports he has been coughing a lot at home. He states he has been dry heaving quite a bit. He states after this he started to have some chest discomfort. He also reports he has not been taking his insulin on an outpatient basis. Blood sugar was 519 upon admission to the hospital. Patient states he is feeling better this morning with no nausea or vomiting. He also denies any chest pain or pressure. He is hoping to be discharged home today. DIAGNOSTICS: - EKG reveals sinus mechanism with no signs of acute ischemia - Chest xray negative for acute process. - Laboratory data: WBC 10.66. Hemoglobin 12.5. Platelet count 118. Sodium 131. Potassium 4.4. BUN 34. Creatinine 1.12. Lactic acid 1.8. Troponin 0.024. 0.042. - Current home cardiac medications include Lasix 40 mg daily, Imdur 30 mg daily, Toprol tartrate 12.5 mg twice a day, Aldactone 25 mg daily. - Most recent echocardiogram obtained in July 2022 revealed ejection fraction 40%, valvular structures not well-seen. - Cardiac catheterization history: 2022 revealing severe stenosis of the ostium of the LAD and left circumflex, chronically occluded RCA, collaterals from the left system, elevated LVEDP REVIEW OF SYSTEMS: At the time of my exam: CONSTITUTIONAL: Denies fever or chills. HEENT: Denies blurred vision, vision changes, or eye pain. Denies hemoptysis CARDIOVASCULAR: Denies chest pain. Denies orthopnea. Denies PND. Denies palpitations RESPIRATORY: Denies shortness of breath. GASTROINTESTINAL: Denies abdominal pain. Denies nausea or vomiting. HEMATOLOGIC: Denies bleeding disorders. GENITOURINARY: Denies any blood in urine. SKIN: Denies pruitis. Denies rash. PHYSICAL EXAM: VITAL SIGNS: Reviewed. GENERAL: Well-developed in no acute distress. HEENT: Head is normocephalic. Pupils are equal, round. Sclerae anicteric. Mucous membranes of the mouth are moist. Neck supple. No JVD or thyromegaly LUNGS: Respirations even and unlabored. Lungs essentially clear to auscultation bilaterally. HEART: Regular rate and rhythm. S1 and S2 heard. ABDOMEN: Soft. Nondistended. Nontender. EXTREMITIES: Normal range of motion. No clubbing or cyanosis. Peripheral pulses intact. No lower extremity edema NEUROLOGIC: Awake and alert. Oriented x 3. ASSESSMENT: Nausea and vomiting Chest pain with minimally elevated troponins, ACS ruled out, of unclear significance Coronary artery disease Hyperglycemia, blood sugar 519 on admission Medication noncompliance, patient not taking insulin on outpatient basis History of colon mass History of GI bleed Hypertension Hyperlipidemia Diabetes PLAN: Obtain 2D echo to assess cardiac structure and function Obtain additional troponin. Continue IV heparin until third troponin is resulted Resume home cardiac medications Patient currently declining to undergo stress testing or cardiac catheterization Further recommendations pending patient course Nurse practitioner note has been reviewed by physician. Signing provider agrees with the documented findings, assessment, and plan of care documented by GROUP SALES MANAGER as a scribe. Past Medical History Past Medical History: Coronary Artery Disease (CAD), Chest Pain / Angina, Diabetes Mellitus, Hyperlipidemia, Hypertension, Myocardial Infarction ([place]) Additional Past Medical History / Comment(s): IDDM type II, L knee pain due to tendon problem, bilateral foot pain. Last Myocardial Infarction Date:: Unsure History of Any Multi-Drug Resistant Organisms: None Reported Past Surgical History: Heart Catheterization With Stent Additional Past Surgical History / Comment(s): 02/11/16 cath with stent to cx. Other surgical hx: 09/14/14 HEART CATH with stent to RCA (TRIPLE VESSEL DISEASE FOUND). Past Anesthesia/Blood Transfusion Reactions: No Reported Reaction Additional Past Anesthesia/Blood Transfusion Reaction / Comment(s): NO PAST SURGURIES Date of Last Stent Placement:: 2015 Past Psychological History: No Psychological Hx Reported Additional Psychological History / Comment(s): Patient has had recent suicidal ideation Smoking Status: Never smoker Past Alcohol Use History: None Reported Additional Past Alcohol Use History / Comment(s): QUIT SMOKING 40 YEARS AGO Past Drug Use History: None Reported - Past Family History Son(s) Family Medical History: Cancer Brother(s) Additional Family Medical History / Comment(s): Pt had one brother who had a CVA at the age of 68yrs and another brother who had a DE at the age of 61yrs. Father History Unknown: Yes Additional Family Medical History / Comment(s): Patient reports that his dad more than likely from EtOH abuse Mother History Unknown: Yes Family Medical History: Cancer Medications and Allergies Home Medications Medication Instructions Recorded Confirmed Type Pregabalin [Lyrica] 200 mg PO TID 09/14/14 10/23/24 History Insulin Degludec [Tresiba 50 units SQ HS 06/16/22 10/23/24 History Flextouch U-100 Pen] Furosemide [Lasix] 40 mg PO DAILY #30 tab 08/04/22 10/23/24 Rx Isosorbide Mononitrate ER [Imdur] 30 mg PO DAILY #30 tab 08/04/22 10/23/24 Rx Spironolactone [Aldactone] 25 mg PO DAILY #30 tab 08/04/22 10/23/24 Rx Metoprolol Tartrate [Lopressor] 12.5 mg PO BID 10/23/24 10/23/24 History Allergies Allergy/AdvReac Type Severity Reaction Status Date / Time No Known Allergies Allergy Verified 10/23/24 19:18 Physical Exam Vitals: Vital Signs Temp Pulse Pulse Resp BP BP Pulse Ox 10/24/24 07:00 97.6 F 69 16 118/61 95 10/24/24 02:00 97.8 F 70 17 119/68 99 10/23/24 23:24 98.4 F 67 18 115/65 96 10/23/24 19:42 74 18 133/74 95 10/23/24 18:44 98.2 F 80 18 144/60 98 10/23/24 14:54 89 18 113/60 97 10/23/24 12:43 98.1 F 82 20 155/81 100 Intake and Output 10/23/24 10/24/24 10/24/24 22:59 06:59 14:59 Intake Total 64.912 Balance 64.912 Intake: Intake, IV Titration 64.912 Amount Heparin Sod,Pork in 0.45% 64.912 NaCl 25,000 unit In 0.45 % NaCl 1 250ml.bag @ 12 UNITS/KG/HR 8.165 mls/hr IV .Q24H [facility] Rx#: [id number] Oral 0 Other: Voiding Method Toilet Weight 68.039 kg Results 10/23/24 13:11 10/23/24 13:11 Cardiac Enzymes 10/23/24 10/23/24 10/23/24 Range/Units 13:11 13:11 17:22 AST 18 (17-59) U/L Troponin I 0.024 0.042 H* (0.000-0.034) ng/mL Coagulation 10/23/24 10/24/24 Range/Units 13:11 02:45 PT 11.1 (10.0-12.5) sec APTT 22.9 26.9 (22.0-30.0) sec CBC 10/23/24 Range/Units 13:11 WBC 10.66 H (4.50-10.00) 10*3/uL RBC 4.12 L (4.40-5.60) 10*6/uL Hgb 12.5 L (13.0-17.0) g/dL Hct 34.8 L (39.6-50.0) % Plt Count 118 L (140-440) 10*3/uL Comprehensive Metabolic Panel 10/23/24 Range/Units 13:11 Sodium 131 L (137-145) mmol/L Potassium 4.4 (3.5-5.1) mmol/L Chloride 94 L (98-107) mmol/L Carbon Dioxide 19 L (22-30) mmol/L BUN 34 H (9-20) mg/dL Creatinine 1.12 (0.66-1.25) mg/dL Glucose 519 H* (74-99) mg/dL Calcium 9.1 (8.4-10.2) mg/dL AST 18 (17-59) U/L ALT 13 (4-49) U/L Alkaline Phosphatase 295 H (38-126) U/L Total Protein 6.7 (6.3-8.2) g/dL Albumin 3.8 (3.5-5.0) g/dL Current Medications Generic Name Dose Route Start Last Admin Trade Name Freq PRN Reason Stop Dose Admin Acetaminophen 650 mg 10/23/24 17:35 Acetaminophen Tab 325 Mg Tab PO Q6HR PRN Mild Pain or Fever > 100.5 Aspirin 81 mg 10/24/24 09:00 Aspirin 81 Mg PO DAILY [facility] Furosemide 40 mg 10/24/24 09:00 Furosemide 40 Mg Tab PO DAILY [facility] Heparin Sodium (Porcine) 0 unit 10/23/24 20:26 10/24/24 04:49 Heparin Sodium 1,000 Un/Ml (10ml Vl) IV 3,400 unit PER PROTOCOL PRN Administration Low PTT Protocol Sodium Chloride 1,000 mls @ 150 mls/hr 10/23/24 14:45 10/24/24 04:52 Saline 0.9% IV 150 mls/hr .[id number] JESSY Administration Sodium Chloride 1,000 mls @ 75 mls/hr 10/23/24 17:45 10/23/24 19:41 Saline 0.9% IV 75 mls/hr .[id number] JESSY Administration Heparin Sodium/Sodium Chloride 250 mls @ 8.165 mls/hr 10/23/24 20:30 10/24/24 04:49 25,000 unit/ Sodium Chloride IV 15 units/kg/hr .Q24H JESSY 10.206 mls/hr Titration Protocol 12 UNITS/KG/HR Insulin Glargine 50 unit 10/24/24 21:00 Insulin Glargine (Lantus) 100 Unit/Ml Syr SQ HS [facility] Insulin Human Lispro 0 unit 10/24/24 12:30 Insulin Lispro (Humalog) 100 Unit/Ml 10 Ml Vl SQ ACHS [facility] Protocol Isosorbide Mononitrate 30 mg 10/24/24 09:00 Isosorbide Mononitrate Er 30 Mg Tab.Er.24h PO DAILY [facility] Metoprolol Tartrate 12.5 mg 10/24/24 09:00 Metoprolol Tartrate 12.5 Mg Tab PO BID [facility] Naloxone HCl 0.2 mg 10/23/24 17:35 Naloxone 0.4 Mg/Ml 1 Ml Vial IV Q2M PRN Opioid Reversal Ondansetron HCl 4 mg 10/23/24 17:35 10/23/24 18:37 Ondansetron 4 Mg/2 Ml Vial IVP 4 mg Q8HR PRN Administration Nausea And Vomiting Pregabalin 200 mg 10/24/24 09:00 Pregabalin 100 Mg Cap PO TID [facility] Spironolactone 25 mg 10/24/24 09:00 Spironolactone 25 Mg Tab PO DAILY [facility] Intake and Output 10/23/24 10/24/24 10/24/24 22:59 06:59 14:59 Intake Total 64.912 Balance 64.912 Intake: Intake, IV Titration 64.912 Amount Heparin Sod,Pork in 0.45% 64.912 NaCl 25,000 unit In 0.45 % NaCl 1 250ml.bag @ 12 UNITS/KG/HR 8.165 mls/hr IV .Q24H [facility] Rx#: [id number] Oral 0 Other: Voiding Method Toilet Weight 68.039 kg 10/23/24 13:11 10/23/24 13:11
[2024-10-24] MEDS: PREGABALIN 100 MG CAP PO SCH (09:38)
[2024-10-24] MEDS: SPIRONOLACTONE 25 MG TAB PO SCH (09:39)
[2024-10-24] MEDS: ISOSORBIDE MONONITRATE ER 30 MG TAB.ER.24H PO SCH (09:39)
[2024-10-24] MEDS: FUROSEMIDE 40 MG TAB PO SCH (09:39)
[2024-10-24] MEDS: METOPROLOL TARTRATE 12.5 MG TAB PO SCH (09:39)
[2024-10-24] MEDS: ASPIRIN 81 MG PO SCH (09:39)
[2024-10-24 11:00] LABS: Glucose,Whole Blood 279 mg/dL (70-110)
[2024-10-24 13:04] VITALS: BP 119/66; PULSE 57; TEMP 97.5
[2024-10-24] MEDS: INSULIN LISPRO (HumaLOG) 100 UNIT/ML 10 mL VL SQ SCH (13:14)
[2024-10-24] MEDS ORDERED: HEPARIN SODIUM,PORCINE 5,000 UNIT/ML 1 ML VIAL SQ SCH (16:00)
[2024-10-24] MEDS ORDERED: INSULIN GLARGINE (LANTUS) 100 UNIT/ML SYR SQ SCH (21:00)
== END 2024-10-24 14:39 ==
LOC: EC 12:34 → 1SOBS 17:18
PROVIDERS: ADMIT Family Medicine; ATTEND Family Medicine
DX: R07.9 Chest pain, unspecified (principal); R11.2 Nausea with vomiting, unspecified; R10.9 Unspecified abdominal pain; R79.89 Other specified abnormal findings of blood chemistry; E11.65 Type 2 diabetes mellitus with hyperglycemia; E78.5 Hyperlipidemia, unspecified; I10 Essential (primary) hypertension; I25.10 Atherosclerotic heart disease of native coronary artery without angina pectoris; I25.2 Old myocardial infarction; Z91.128 Patient's intentional underdosing of medication regimen for other reason; Z91.148 Patient's other noncompliance with medication regimen for other reason; Z79.4 Long term (current) use of insulin; Z79.899 Other long term (current) drug therapy; Z87.891 Personal history of nicotine dependence; Z95.5 Presence of coronary angioplasty implant and graft
CPT/HCPCS: 96361 ×2; 96365; 96366 ×2; 96375 ×2; 96376; 99285; 36415; 93005; 80053; 82803; 83605; 83690; 83735; 84484 ×2; 85025; 85610; 85730 ×2; 81003; 71046; 74177; G0378 ×2; J2270; J2765; J2405; J1644 ×3; Q9967